=== PATIENT | male | born 1950 | race Caucasian/White ===

== ENCOUNTER → 2020-11-22 11:57 | Outpatient (BNVA) | payer MEDICARE, MEDICAID, SELFPAY | PROVIDERS: PCP Internal Medicine; Visit Provider Nurse Practitioner ==

== ENCOUNTER 2021-01-14 11:54 | Outpatient (REF) | payer MEDICARE, MEDICAID, SELFPAY ==
--- NOTE | ~2021-01-14 | XR_ITS ---
EXAMINATION: XR RIBS, BILATERAL CLINICAL INFORMATION: Trauma COMPARISON: Previous chest x-ray June [address] June 2017 TECHNIQUE: 3 views of the bilateral ribs and one view of the chest were obtained. FINDINGS: The cardiac and mediastinal contours are stable. The lungs are clear. There is no pleural effusion or pneumothorax. There are multiple old left posterior rib fractures. No acute rib fracture is seen. There are degenerative changes of the spine. XR/XR ribs BI min 4V w CXR1V IMPRESSION: No evidence for acute disease in the chest. Old left posterior rib fractures. No acute fracture seen.
--- NOTE | ~2021-01-14 | XR_ITS ---
EXAMINATION: XR FOREARM, RIGHT CLINICAL INFORMATION: Unspecified injury. Pain COMPARISON: None TECHNIQUE: AP and lateral views of the right forearm were obtained. FINDINGS: The bones and soft tissues are normal. No fracture. Imaged portions of the elbow and wrist are unremarkable. XR/XR forearm RT 2V IMPRESSION: Unremarkable right forearm.
== END 2021-01-14 11:55 | disposition home or self-care (01) ==
LOC: HO.XRAY 11:54
PROVIDERS: PCP Internal Medicine; Visit Provider Nurse Practitioner
DX: S59.919A Unspecified injury of unspecified forearm, initial encounter (principal); R07.81 Pleurodynia; R19.7 Diarrhea, unspecified; K21.9 Gastro-esophageal reflux disease without esophagitis; W10.2XXA Fall (on)(from) incline, initial encounter
CPT/HCPCS: 71111; 73090; Q3014

== ENCOUNTER → 2021-06-22 15:08 | Outpatient (BNVA) | payer MEDICARE, MEDICAID, SELFPAY | PROVIDERS: PCP Internal Medicine; Visit Provider Urology | DX: N40.0 Benign prostatic hyperplasia without lower urinary tract symptoms (principal); G20 Parkinson's disease; E78.00 Pure hypercholesterolemia, unspecified; Z88.8 Allergy status to other drugs, medicaments and biological substances; Z79.899 Other long term (current) drug therapy | CPT/HCPCS: 99212 ==

== ENCOUNTER → 2021-08-19 13:58 | Outpatient (BNVA) | payer MEDICARE, MEDICAID, SELFPAY | PROVIDERS: PCP Internal Medicine; Referring Provider Internal Medicine; Visit Provider Nurse Practitioner | DX: R19.7 Diarrhea, unspecified (principal); D36.9 Benign neoplasm, unspecified site; K21.9 Gastro-esophageal reflux disease without esophagitis; Z79.899 Other long term (current) drug therapy | CPT/HCPCS: Q3014 ==

== ENCOUNTER 2021-10-03 10:03 | Day surgery (SDC) | payer MEDICARE, MEDICAID, SELFPAY ==
--- NOTE | 2021-10-03 10:24 | MHC.SHP ---
Pre-Procedural Eval Section A Date of Service: 10/03/21 Section B Chief Complaint: benign neoplasm Details of Present Illness: hx of colon polyps Relevant Family History (Specify if Yes): No Relevant Social History: None Present Medications: see Short Stay Collaborative assessment Medical History: Significant History (BPH (benign prostatic hyperplasia) GERD (gastroesophageal reflux disease) Hypercholesterolemia Intractable hiccups Mental and behavioral problem Parkinsons disease Physical exam, annual Rib fractures Seizure disorder Tubular adenoma of colon) History of Previous Operations: Relevant previous surgery/procedure and date(s) (History of carpal tunnel release History of cholecystectomy Hx of colonoscopy) Allergies: Allergies Allergy/AdvReac Type Severity Reaction Status Date / Time ammonia [AMMONIA] Allergy Intermediate SHORTNESS Verified 08/19/21 14:20 OF BREATH sodium hypochlorite solution Allergy Intermediate SHORTNESS Verified 08/19/21 14:20 [Sodium Hypochlorite] OF BREATH ( BLEACH ) Review of Systems Sugical H&P ROS: Negative: Constitution, Cardiovascular, Respiratory, Neurological, Psychiatric, Hem-Onc, Allergic/Immunologic, Gastrointestinal, Genitourinary, Musculoskeletal, Integumentary, Endocrine and Eyes/Ears/Nose/Throat Exam Surgical H&P Exam: Normal: HEENT, Normal: Heart, Normal: Lungs, Normal: Extremities, Normal: Abdomen and Normal: Skin and Significant Findings: Neurological (tremor) Plan Diagnosis/Plan: Unchanged I have reviewed the history and physical and performed a pertinent physical examination on my patient. No changes have occurred unless specified.
[2021-10-03 10:46] VITALS: BMI 25.7
--- NOTE | 2021-10-03 10:57 | HO.ANESPROP2 ---
[facility] Active Problems Active Problems: All Active Problems (Updated 09/27/21 @ 14:28 by Silvia Aburto, RN) Physical exam, annual (Acute) Diarrhea (Acute) Multiple adenomatous polyps (Acute) Fall (on)(from) incline, initial encounter (Acute) Forearm injury (Acute) Rib pain on right side (Acute) GERD (gastroesophageal reflux disease) (Acute) Mental and behavioral problem (Acute) Hypercholesterolemia (Acute) Intractable hiccups (Acute) BPH (benign prostatic hyperplasia) (Acute) Seizure disorder (Acute) Parkinsons disease (Acute) Past Medical History Medical History (Updated 09/27/21 @ 14:28 by Silvia Aburto RN) BPH (benign prostatic hyperplasia) GERD (gastroesophageal reflux disease) Hypercholesterolemia Intractable hiccups Mental and behavioral problem Parkinsons disease Rib fractures Seizure disorder Tubular adenoma of colon Family History Family History Father Lung cancer Mother Brain cancer COPD (chronic obstructive pulmonary disease) Family history of problems with anesthesia: No Surgical History Surgical History (Updated 09/27/21 @ 14:28 by Silvia Aburto RN) History of carpal tunnel release History of cholecystectomy History of esophagogastroduodenoscopy (EGD) Hx of colonoscopy History of Problems with Anesthesia: No Social History Social History Alcohol intake: current Alcohol intake frequency: does not drink Advance Directives: No Advance Directives Information Provided: Yes Meds Allergies Allergy/AdvReac Type Severity Reaction Status Date / Time ammonia [AMMONIA] Allergy Intermediate SHORTNESS Verified 08/19/21 14:20 OF BREATH sodium hypochlorite solution Allergy Intermediate SHORTNESS Verified 08/19/21 14:20 [Sodium Hypochlorite] OF BREATH ( BLEACH ) Home Medications Medication Instructions Recorded Confirmed Last Taken Type buspirone 10 mg tablet 10 mg PO BID 07/22/20 09/27/21 Unknown History chlorpromazine 50 mg tablet mg PO 07/22/20 09/30/20 Unknown History clonazepam 0.5 mg tablet 0.5 mg PO BEDTIME 07/22/20 09/27/21 Unknown History gabapentin 300 mg capsule 300 mg PO 07/22/20 09/30/20 Unknown History loratadine 10 mg tablet (Claritin) 10 mg PO DAILY 07/22/20 09/27/21 Unknown History sucralfate 1 gram tablet 1 g PO .COMPLEX 07/22/20 09/27/21 Unknown History buspirone 10 mg tablet 10 mg PO ONCE PRN tab 09/30/20 09/27/21 Unknown History chlorpromazine 50 mg tablet 50 mg PO Q6H PRN tab 09/30/20 09/30/20 Unknown History carbidopa 25 mg-levodopa 100 mg 1.5 tab PO QID tab 11/25/20 09/27/21 Unknown History tablet clonazepam 1 mg tablet mg PO 01/14/21 Unknown History Exam Exam Date and Time: October 03, 2021 1057 Airway Mallampati Class: III TM Dist: >3cm Neck ROM: Full Heart: rrr Lungs: cta Assessment and Plan Assessment Anesthesia Assessment: Anesthesia Plan Discussed and Chart Reviewed Final Anesthetic Review Family History of Problems with Anesthesia: No History of Problems with Anesthesia: No NPO: Yes ASA Class: III Final Preanesthetic Review: No Changes in Pt Med Stat, Meds/Allgs Chart Reviewed and Consent Obtained/Reviewed Patient Risk: Intermediate Procedure Risk: Intermediate Anesthetic Plan Anesthetic Plan: MAC: Disposition: Standard PACU
[2021-10-03] MEDS: Lactated Ringers 1,000 ML 50 ML IVCONT (11:15)
--- NOTE | 2021-10-03 11:21 | PM.OP ---
Brief Operative Note Date of Service: 10/03/21 Pre-op diagnosis: hx of polyps Post-op diagnosis: same Procedure: see op note Surgeon: Nissa Farias MD Anesthesia: MAC Was an Restorative Rehab Aide used for this Procedure?: No Estimated blood loss (mL): 0 Condition: stable Disposition: PACU
--- NOTE | 2021-10-03 11:21 | W.PM.OPN ---
Operative Note Operative Note Date of Service: 10/03/21 Narrative: Operative Information Procedure Description: Colonoscopy COLONOSCOPY Instrument: Olympus variable stiffness pediatric scope 190L Colonoscopy Monitoring: Vital signs and clinical assessment, continuous EKG monitoring, Pulse oximetry, Carbon Dioxide monitoring and blood pressure monitoring were done throughout the procedure. Colon withdrawal time was 22 minutes. Procedure: The patient was placed in the left lateral decubitis position and pre-procedure medications were administered. After a digital rectal examination of the ano-rectum, the video colonoscope was inserted into the rectum and advanced through the colon to the cecum/TI. The colonoscope was slowly withdrawn in a retrograde panoramic fashion and the colon mucosa was carefully examined including a retroflexed view of the rectum. Findings and interventions are described below. Procedure Difficulty: easy Findings: Terminal Ileum-normal Cecum:normal Ascending Colon: x2 sessile polyps 9-10 mm removed with forceps on retroflexion, x 1 sessile polyp 8-10 mm removed with cold snare Transverse Colon -normal Descending Colon: 10-12 mm sessile polyp removed with cold snare and x 2 clips applied for hemostasis Sigmoid Colon: normal Rectum: Retroflexion with moderate sized internal hemorrhoids, grade II Anorectum - internal hemorrhoids seen on forward view Colon preparation: [place] Bowel Preparation Scale Right colon; 2 Transverse colon: 2 Left colon; 2 (0 = Unprepared colon segment with mucosa not seen due to solid stool that cannot be cleared. 1 = Portion of mucosa of the colon segment seen, but other areas of the colon segment not well seen due to staining, residual stool and/or opaque liquid. 2 = Minor amount of residual staining, small fragments of stool and/or opaque liquid, but mucosa of colon segment seen well. 3 = Entire mucosa of colon segment seen well with no residual staining, small fragments of stool or opaque liquid) Impression and Post Procedure Diagnosis: polyps internal hemorrhoids Plan: High fiber diet leaflet Avoid straining at stool, epsom salts and sitz bath, anusol supps or cream Repeat Colonoscopy in 3 years or earlier if clinically indicated Above findings were reviewed with the patient and relevant handouts were provided if indicated.
[2021-10-03 11:59] VITALS: BP 97/59; PULSE 51; RESP 16; TEMP 36.2; O2SAT 95
[2021-10-03 12:26] VITALS: BP 117/73; PULSE 59; RESP 17; TEMP 36.2; O2SAT 95
== END 2021-10-03 13:18 | disposition home or self-care (01) ==
PROVIDERS: Visit Provider Internal Medicine Gastroenterology
PROC: 0DJD8ZZ Inspection of Lower Intestinal Tract, Via Natural or Artificial Opening Endoscopic (ICD-10-PCS; CPT 45378; principal; 2021-10-03 11:00)
DX: Z12.11 Encounter for screening for malignant neoplasm of colon (principal); Z86.010 Personal history of colon polyps; D12.2 Benign neoplasm of ascending colon; D12.4 Benign neoplasm of descending colon; K64.1 Second degree hemorrhoids; K58.0 Irritable bowel syndrome with diarrhea; K21.9 Gastro-esophageal reflux disease without esophagitis; N40.0 Benign prostatic hyperplasia without lower urinary tract symptoms; G20 Parkinson's disease; G40.909 Epilepsy, unspecified, not intractable, without status epilepticus; F99 Mental disorder, not otherwise specified; F91.9 Conduct disorder, unspecified; Z79.899 Other long term (current) drug therapy; Z91.81 History of falling; Z90.49 Acquired absence of other specified parts of digestive tract
CPT/HCPCS: 45385; 45380; 88305

== ENCOUNTER 2021-10-20 10:05 | Outpatient (REF) | payer MEDICARE, MEDICAID, SELFPAY ==
[2021-10-20 10:40] LABS: MANUAL DIFF FLAG NO
[2021-10-20 11:24] LABS: Basophils Percent Auto 0.4 % (0-2); Eosinophils Absolute Auto 0.1 X10*3/uL (0.0-0.4); Eosinophils Percent Auto 1.3 % (0-4); Hematocrit 49.1 % (42.0-52.0); Hemoglobin 16.8 g/dl (14.0-18.0); Imm Gran Abs Auto 0.01 X10*3/uL (0.00-0.03); Imm Gran Pct Auto 0.2 % (0.0-0.4); Lymphocytes Absolute Auto 1.4 X10*3/uL (1.2-4.9); Lymphocytes Percent Auto 26.9 % (20-40); MANUAL DIFF FLAG SCAN; Mean Corpuscular HGB Conc 34.2 g/dl (31.0-36.0); Mean Corpuscular Hemoglobin 32.9 pg (27.0-33.0); Mean Corpuscular Volume 96.3 fL (80.0-98.0); Mean Platelet Volume 12.1 fL (9.4-12.4); Monocytes Absolute Auto 0.4 X10*3/uL (0.1-1.2); Monocytes Percent Auto 7.5 % (2-11); Neutrophils Absolute Auto 3.3 x10*3/uL (2.0-8.3); Neutrophils Percent Auto 63.7 % (45-73); PLT CLUMP 1; Platelet Count 109 X10*3/uL (160-400); Red Cell Distribution Width 13.2 % (11.0-16.0); SCAN SMEAR FLAG 1; White Blood Count 5.2 X10*3/uL (4.8-10.8)
[2021-10-20 11:25] LABS: Basophils Percent Auto 0.2 % (0-2); Eosinophils Absolute Auto 0.1 X10*3/uL (0.0-0.4); Eosinophils Percent Auto 1.9 % (0-4); Hematocrit 49.4 % (42.0-52.0); Hemoglobin 16.7 g/dl (14.0-18.0); Lymphocytes Absolute Auto 1.4 X10*3/uL (1.2-4.9); Mean Corpuscular HGB Conc 33.8 g/dl (31.0-36.0); Mean Corpuscular Hemoglobin 32.6 pg (27.0-33.0); Mean Corpuscular Volume 96.5 fL (80.0-98.0); Monocytes Absolute Auto 0.4 X10*3/uL (0.1-1.2); Monocytes Percent Auto 7.5 % (2-11); Neutrophils Absolute Auto 3.4 x10*3/uL (2.0-8.3); Neutrophils Percent Auto 63.2 % (45-73); Red Blood Count 5.12 X10*6/uL (4.60-5.80)
[2021-10-20 12:11] LABS: Platelet Count 105 X10*3/uL (160-400); White Blood Count 5.3 X10*3/uL (4.8-10.8)
[2021-10-20 12:12] LABS: SLIDE REVIEW VERIFIED
[2021-10-20 12:14] LABS: Alanine Aminotransferase 8 U/L (0-40); Alkaline Phosphatase 55 U/L (39-117); Anion Gap 11 (12-20); Aspartate Amino Transferase 16 U/L (5-37); Blood Urea Nitrogen 18 mg/dL (9-16); Carbon Dioxide 26 mmol/L (22-29); Chloride 109 mmol/L (96-108); Cholesterol 158 mg/dL; Estimated Glomerular Filt Rate > 60; Glucose Fasting 133 mg/dL (60-99); HDL Cholesterol 35 mg/dL; LDL Cholesterol Calculated 101 mg/dl; Potassium 4.8 mmol/L (3.3-5.1); Sodium 141 mmol/L (135-145); Total Protein 6.9 g/dL (6.5-8.0); Triglycerides 114 mg/dL
== END 2021-10-20 10:06 | disposition home or self-care (01) ==
LOC: HO.LAB 10:05
PROVIDERS: Nurse Practitioner; PCP Internal Medicine; Visit Provider Nurse Practitioner Family
DX: G20 Parkinson's disease (principal); D36.9 Benign neoplasm, unspecified site; E78.00 Pure hypercholesterolemia, unspecified
CPT/HCPCS: 36415; 80053; 80061; 85025

== ENCOUNTER → 2021-10-25 13:23 | Outpatient (BNVA) | payer MEDICARE, MEDICAID, SELFPAY | PROVIDERS: PCP Internal Medicine; Referring Provider Internal Medicine; Visit Provider Nurse Practitioner | DX: K21.9 Gastro-esophageal reflux disease without esophagitis (principal); R19.7 Diarrhea, unspecified; D36.9 Benign neoplasm, unspecified site | CPT/HCPCS: 99212 ==

== ENCOUNTER 2022-01-12 09:49 | Outpatient (REF) | payer MEDICARE, MEDICAID, SELFPAY ==
[2022-01-12 10:10] LABS: MANUAL DIFF FLAG NO
[2022-01-12 10:27] LABS: Eosinophils Absolute Auto 0.1 X10*3/uL (0.0-0.4); Imm Gran Abs Auto 0.01 X10*3/uL (0.00-0.03); Imm Gran Pct Auto 0.2 % (0.0-0.4); Mean Corpuscular Volume 96.7 fL (80.0-98.0); PLT CLUMP 1; SCAN SMEAR FLAG 1
[2022-01-12 10:28] LABS: Basophils Percent Auto 0.4 % (0-2); Eosinophils Percent Auto 1.4 % (0-4); Hematocrit 52.2 % (42.0-52.0); Hemoglobin 17.6 g/dl (14.0-18.0); Lymphocytes Absolute Auto 1.7 X10*3/uL (1.2-4.9); Lymphocytes Percent Auto 29.8 % (20-40); Mean Corpuscular HGB Conc 33.7 g/dl (31.0-36.0); Mean Corpuscular Hemoglobin 32.6 pg (27.0-33.0); Monocytes Absolute Auto 0.5 X10*3/uL (0.1-1.2); Monocytes Percent Auto 8.8 % (2-11); Neutrophils Absolute Auto 3.3 x10*3/uL (2.0-8.3); Neutrophils Percent Auto 59.4 % (45-73); Red Cell Distribution Width 13.1 % (11.0-16.0)
[2022-01-12 10:40] LABS: Platelet Count 122 X10*3/uL (160-400); White Blood Count 5.6 X10*3/uL (4.8-10.8)
[2022-01-12 10:43] LABS: Estimated Average Glucose 114 mg/dL; Hemoglobin A1c % 5.6 %
[2022-01-12 10:54] LABS: Alanine Aminotransferase 14 U/L (0-40); Albumin Level 4.2 g/dL (3.5-5.0); Alkaline Phosphatase 53 U/L (39-117); Anion Gap 14 (12-20); Aspartate Amino Transferase 14 U/L (5-37); Bilirubin Total 1.4 mg/dL (0.0-1.0); Blood Urea Nitrogen 14 mg/dL (9-16); Calcium 9.6 mg/dL (8.4-10.2); Carbon Dioxide 26 mmol/L (22-29); Chloride 106 mmol/L (96-108); Cholesterol 175 mg/dL; Estimated Glomerular Filt Rate > 60; Glucose Fasting 84 mg/dL (60-99); HDL Cholesterol 37 mg/dL; LDL Cholesterol Calculated 119 mg/dl; Potassium 4.5 mmol/L (3.3-5.1); Sodium 141 mmol/L (135-145); Total Protein 6.8 g/dL (6.5-8.0); Triglycerides 96 mg/dL
[2022-01-12 11:27] LABS: TSH reflex Free T4 2.31 uIU/mL (0.32-4.0)
[2022-01-12 11:45] LABS: Folate 13.1 ng/mL (> or = 4.0); Vitamin B12 399 pg/mL (200-900)
[2022-01-12 18:32] LABS: Prostate Specific Antigen Scr 2.79 ng/mL (<0.05-4.0)
[2022-01-17 15:57] LABS: Vitamin D 25-OH, D2 <4 ng/mL; Vitamin D 25-OH, D3 14 ng/mL; Vitamin D 25-OH, Total 14 ng/mL (30-100)
== END 2022-01-12 09:50 | disposition home or self-care (01) ==
LOC: HO.LAB 09:49
PROVIDERS: PCP Internal Medicine; Visit Provider Nurse Practitioner Acute Care
DX: Z12.5 Encounter for screening for malignant neoplasm of prostate (principal); E78.00 Pure hypercholesterolemia, unspecified
CPT/HCPCS: 36415; 80053; 80061; 82306; 82607; 82746; 83036; 84153; 84443; 85025

== ENCOUNTER 2022-05-08 15:00 | Outpatient (REF) | payer MEDICARE, MEDICAID, SELFPAY ==
[2022-05-08 15:21] LABS: Hemoglobin 16.6 g/dl (14.0-18.0); Imm Gran Abs Auto 0.01 X10*3/uL (0.00-0.03); Imm Gran Pct Auto 0.2 % (0.0-0.4); Mean Corpuscular HGB Conc 34.2 g/dl (31.0-36.0); PLT CLUMP 1; Red Cell Distribution Width 13.2 % (11.0-16.0); SCAN SMEAR FLAG 1
[2022-05-08 15:22] LABS: Basophils Percent Auto 0.6 % (0-2); Eosinophils Absolute Auto 0.1 X10*3/uL (0.0-0.4); Eosinophils Percent Auto 2.6 % (0-4); Hematocrit 48.5 % (42.0-52.0); Lymphocytes Absolute Auto 1.9 X10*3/uL (1.2-4.9); Lymphocytes Percent Auto 37.1 % (20-40); Mean Corpuscular Hemoglobin 32.5 pg (27.0-33.0); Mean Corpuscular Volume 94.9 fL (80.0-98.0); Mean Platelet Volume 11.6 fL (9.4-12.4); Monocytes Absolute Auto 0.4 X10*3/uL (0.1-1.2); Monocytes Percent Auto 8.4 % (2-11); Neutrophils Absolute Auto 2.5 x10*3/uL (2.0-8.3); Neutrophils Percent Auto 51.1 % (45-73); Red Blood Count 5.11 X10*6/uL (4.60-5.80)
[2022-05-08 15:26] LABS: MANUAL DIFF FLAG NO; Platelet Count 109 X10*3/uL (160-400)
[2022-05-08 15:48] LABS: Valproate 61.6 mcg/mL (50.0-100.0)
[2022-05-08 15:51] LABS: Alanine Aminotransferase 8 U/L (0-40); Albumin Level 4.4 g/dL (3.5-5.0); Alkaline Phosphatase 58 U/L (39-117); Anion Gap 9 (12-20); Aspartate Amino Transferase 17 U/L (5-37); Bilirubin Total 0.9 mg/dL (0.0-1.0); Blood Urea Nitrogen 18 mg/dL (9-16); Calcium 9.2 mg/dL (8.4-10.2); Carbon Dioxide 32 mmol/L (22-29); Chloride 103 mmol/L (96-108); Estimated Glomerular Filt Rate > 60; Glucose Random 118 mg/dL (60-115); Potassium 4.1 mmol/L (3.3-5.1); Sodium 140 mmol/L (135-145); Total Protein 6.8 g/dL (6.5-8.0)
[2022-05-08 16:05] LABS: Vitamin D 25-OH Total 35.8 ng/mL (>30)
== END 2022-05-08 15:01 | disposition home or self-care (01) ==
LOC: HO.LAB 15:00
PROVIDERS: PCP Internal Medicine; Visit Provider Internal Medicine
DX: G40.909 Epilepsy, unspecified, not intractable, without status epilepticus (principal); G20 Parkinson's disease; E55.9 Vitamin D deficiency, unspecified
CPT/HCPCS: 36415; 80053; 80164; 82306; 85025

== ENCOUNTER → 2022-05-16 14:35 | Outpatient (BNVA) | payer MEDICARE, MEDICAID, SELFPAY | PROVIDERS: PCP Internal Medicine; Referring Provider Internal Medicine; Visit Provider Nurse Practitioner | DX: K21.9 Gastro-esophageal reflux disease without esophagitis (principal); R19.7 Diarrhea, unspecified; K22.4 Dyskinesia of esophagus | CPT/HCPCS: 99212 ==

== ENCOUNTER → 2022-11-15 14:25 | Outpatient (BNVA) | payer MEDICARE, MEDICAID, SELFPAY | PROVIDERS: PCP Internal Medicine; Visit Provider Nurse Practitioner | DX: R19.7 Diarrhea, unspecified (principal); K21.9 Gastro-esophageal reflux disease without esophagitis; K22.4 Dyskinesia of esophagus; D36.9 Benign neoplasm, unspecified site | CPT/HCPCS: 99212 ==

== ENCOUNTER 2023-01-25 10:18 | Outpatient (REF) | payer MEDICARE, MEDICAID, SELFPAY ==
[2023-01-25 11:36] LABS: Valproate 50.6 mcg/mL (50.0-100.0)
== END 2023-01-25 10:19 | disposition home or self-care (01) ==
LOC: HO.LAB 10:18
PROVIDERS: PCP Internal Medicine; Visit Provider Psychiatry & Neurology Neurology
DX: G40.011 Localization-related (focal) (partial) idiopathic epilepsy and epileptic syndromes with seizures of localized onset, intractable, with status epilepticus (principal)
CPT/HCPCS: 36415; 80164

== ENCOUNTER 2023-01-30 11:00 | Outpatient (RCR) | payer MEDICARE, MEDICAID, SELFPAY ==
--- NOTE | 2023-01-10 15:04 | MHC.PT.EP ---
[facility] [place] Office [place] Office [place] Office [address] Katey Sarah [address] [phone] F: [phone] F: [phone] F: [phone] F: [phone] Physical Therapy Plan of Care Date of Evaluation: Date of Surgery: NA Diagnosis: GAIT INSTABILITY Assessment: Pt IS 72 YO M REFERRED TO PT FROM DR TEJADA TO WORK ON BALANCE AND STRENGTHENING WITH GT AND ADLS. PRESENTS TO PT WITH DECREASED BALANCE AND DECREASED LE STRENGTH. Pt WITH PARKINSONS DISEASE WITH RESTING TREMOR. HAD UTI ABOUT 4 MONTHS AGO WITH STAY AT [facility]. SINCE THEN HAS BEEN USING [facility]. Pt ABLE TO WALK SHORT DISTANCES WITHOUT [facility] AT THIS TIME. SHOULD BENEFIT FROM PT TO HELP WITH OVERALL STRENGTH, MOBILITY, GT, BALANCE. Frequency and Duration: The patient will be seen 2X/WK X 8 WKS Short Term Goals: 1. HEP TO BE DONE WITH ASSIST 2. GT WITH LRAD (MAY BE ABLE TO WEAN FROM [facility] TO [facility] OR NO AD) Intermediate Goals: 1. IMPROVED 30 SEC SIT<>STAND TEST 2. IMPROVED TUG TIME Treatment Plan: Modalities to reduce pain, spasms and effusion. Manual therapy to restore motion and function. Therapeutic exercise to improve strength and flexibility. Neuromuscular re-education for posture and balance. Therapeutic activities to return to functional activities of daily living. Electronically signed by: GINA KAY PT Please sign and return to therapist. Thank you for your referral.
--- NOTE | 2023-03-29 11:38 | MHC.PT.OD ---
[facility] [place] Office [place] Office [place] Office [address] Katey Sarah [address] [phone] F: [phone] F: [phone] F: [phone] F: [phone] Physical Therapy Daily Note Diagnosis: GAIT INSTABILITY Date of Surgery: NA Date of Evaluation: 01/10/23 Date of Treatment: 01/30/23 Treatments to Date: Cancellations to Date: No Shows to Date: Authorized Visits: 4 Insurance End Date: Precautions/ Contraindications:SEISURE DISORDER PARKINSONS FREEMAN Subjective: Its the same. (Referring to back pain) Presents to office with worker mental health product support specialist Sruthi. Sruthi states patient continues to complain of back pain- not agreeable to seeking medical intervention at this time. Pain Score and Location: 0 Objective Flowsheet: Tests & Measures Therapist inquired ability to look at patient's back- with hesitation pt agreeable (-) bruising. Pt noted to state he does not want xrays and does not want breathing machine. Pt noted to perseverate on this throughout the session. Exercises TRIAL SEATED PathSourceFIT BIKE SEAT 10, LEVEL 1 FOR SLOW REVS able to complete five minutes. SAQ, isometric hip adduction with ball squeeze, SLR into flexion with max tactiles cues for support, seated ROWS WITH YTB, sit<>stand and stand<>sit with cues for support. Pt not agreeable to performing standing kitchen exerciss reports hx fear of back pain. Pt not agreeable to trialing much new things due to fear of having back pain. Reviewed log roll avoiding shear forces to bacK. Reeviewed mechanics with caregiver Sruthi and recommendation to encourage to seek medical care. Sruthi states sometimes has better outcomes with his brother encouraging so she was going to make note and mention concern for back with him. BALANCE ACTIVITIES Education to avoid shear forces, bending twisting movements due to concern for possible fracture s/p fall out of bed. Patient continue to be hesitant not willing to seek medical care despite caseworkers expressing knowledge of his fall OOB. Modalities Assessment: 01/30/23 requires aide of therapist to hold cup while drinking due to tremor. Mixed outcomes with PT noted due to patient lack of willingess to try new exercises, reports ongoing low back pain since fall OOB. PT recommending patient have medical follow up to rule out concern for undetected fracture. Careworker reports no compliance with exercises issued to date since injury of falling out of bed. No increased sx with activity, however no relief reported either. C/O low grade back pain that is constant. No bruising noted on 01/26/23. Pt presents with noted tremor L>R but demonstrates good safety insight for hand placement with use of walker. Pt reports hx back pain since falling OOB per guinea pig breeder was last week. Yarn Rewinder BELINDA appeared with today who was educated by therapist recommendation to monitor and encourage medical staff to follow up with patient for fall OOB/need for xray. Pt does not have any bruising along his back but declines most activities presented to him in the office today c/o back pain L>R. He was educated/encouraged to keep moving and walk often at home. Log roll technique was educated with avoidance of twisting/bending. PT Plan: Monitor active participation- if no change in patient status he may be more appropriate for 1x/weekly STRENGTHENING, BAL WORK, Pt ED. TO BE DONE ONLY WITH CAREGIVER PRESENT Short Term Goals: 1. HEP TO BE DONE WITH ASSIST 2. GT WITH LRAD (MAY BE ABLE TO WEAN FROM [facility] TO [facility] OR NO AD) [facility]ci Goals: 1. IMPROVED 30 SEC SIT<>STAND TEST 2. IMPROVED TUG TIME Electronically signed by: Sue Zamorano, PT, DPT
== END 2023-03-29 11:39 | disposition home or self-care (01) ==
LOC: HO.PTWFD 11:00
PROVIDERS: PCP Internal Medicine; Visit Provider Internal Medicine
DX: R26.89 Other abnormalities of gait and mobility (principal); R29.6 Repeated falls
CPT/HCPCS: 97110; 97162; 97535

== ENCOUNTER 2023-02-16 10:07 | Outpatient (REF) | payer MEDICARE, MEDICAID, SELFPAY ==
--- NOTE | ~2023-02-16 | XR_ITS ---
EXAMINATION: XR LUMBOSACRAL SPINE CLINICAL INFORMATION: Low back pain COMPARISON: None available. TECHNIQUE: Three views of the lumbosacral spine. FINDINGS: There is curvature of the lower lumbar spine to the left. Bone alignment is otherwise normal. No fracture or dislocation. Mild disc space narrowing at L5-S1. There is lower lumbar spine facet arthritis. XR/XR lumbar spine 2-3V IMPRESSION: Mild curvature of the lower lumbar spine to the left and degenerative changes.
[2023-02-16 10:21] LABS: MANUAL DIFF FLAG NO
[2023-02-16 11:14] LABS: Appearance Urine Cloudy; Color Urine Yellow; Glucose Urine UA Negative (Negative); Leukocyte Esterase Urine Moderate (2+) (Negative); Nitrite Urine Positive (Negative); PH 7.5 (5.0-9.0); Specific Gravity - Urine 1.015 (1.005-1.025); UMIC TRIGGER UA YES; Urine Blood Negative (Negative); Urine Ketones Trace mg/dL (Negative); Urine Protein Trace mg/dL (Neg-Trace)
[2023-02-16 11:15] LABS: Basophils Percent Auto 0.4 % (0-2); Eosinophils Absolute Auto 0.1 X10*3/uL (0.0-0.4); Hematocrit 50.2 % (42.0-52.0); Hemoglobin 16.7 g/dl (14.0-18.0); Imm Gran Abs Auto 0.01 X10*3/uL (0.00-0.03); Imm Gran Pct Auto 0.2 % (0.0-0.4); Lymphocytes Absolute Auto 1.7 X10*3/uL (1.2-4.9); Lymphocytes Percent Auto 32.1 % (20-40); Mean Corpuscular HGB Conc 33.3 g/dl (31.0-36.0); Mean Corpuscular Hemoglobin 32.3 pg (27.0-33.0); Mean Corpuscular Volume 97.1 fL (80.0-98.0); Mean Platelet Volume 11.4 fL (9.4-12.4); Monocytes Absolute Auto 0.4 X10*3/uL (0.1-1.2); Monocytes Percent Auto 7.9 % (2-11); Neutrophils Percent Auto 58.4 % (45-73); Platelet Count 114 X10*3/uL (160-400); Red Blood Count 5.17 X10*6/uL (4.60-5.80); Red Cell Distribution Width 13.5 % (11.0-16.0); White Blood Count 5.2 X10*3/uL (4.8-10.8)
[2023-02-16 11:16] LABS: Bacteria Urine 4+ (None Seen); Hyaline Casts Urine 0-2 /LPF (0-2); Squamous Epithelial Cell Urine 0-2 /HPF (0-2); WBC Urine >50 /HPF (0-5)
[2023-02-16 11:25] LABS: Estimated Average Glucose 111 mg/dL; Hemoglobin A1c % 5.5 %
[2023-02-16 12:00] LABS: Anion Gap 14 (12-20)
[2023-02-16 12:04] LABS: Alanine Aminotransferase 36 U/L (0-40); Albumin Level 4.1 g/dL (3.5-5.0); Alkaline Phosphatase 49 U/L (39-117); Aspartate Amino Transferase 19 U/L (5-37); Bilirubin Total 1.4 mg/dL (0.0-1.0); Blood Urea Nitrogen 16 mg/dL (9-16); Calcium 9.3 mg/dL (8.4-10.2); Carbon Dioxide 27 mmol/L (22-29); Chloride 106 mmol/L (96-108); Cholesterol 175 mg/dL; Estimated Glomerular Filt Rate > 60; Glucose Random 77 mg/dL (60-115); HDL Cholesterol 41 mg/dL; LDL Cholesterol Calculated 115 mg/dl; Potassium 4.4 mmol/L (3.3-5.1); Sodium 143 mmol/L (135-145); Total Protein 6.5 g/dL (6.5-8.0); Triglycerides 95 mg/dL
[2023-02-16 12:40] LABS: Folate 14.3 ng/mL (> or = 4.0); Free T4 (Free Thyroxine) 0.99 ng/dL (0.71-1.85); Thyroid Stimulating Hormone 1.65 uIU/mL (0.32-4.0); Vitamin B12 641 pg/mL (200-900)
== END 2023-02-16 10:08 | disposition home or self-care (01) ==
LOC: HO.XRAY 10:07
PROVIDERS: PCP Internal Medicine; Visit Provider Internal Medicine
DX: E78.00 Pure hypercholesterolemia, unspecified (principal); M54.50 Low back pain, unspecified; R73.9 Hyperglycemia, unspecified; Z12.5 Encounter for screening for malignant neoplasm of prostate
CPT/HCPCS: 36415; 72100; 80053; 80061; 81001; 82607; 82746; 83036; 84153; 84439; 84443; 85025

== ENCOUNTER → 2023-02-27 13:05 | Outpatient (BNVA) | payer MEDICARE, MEDICAID, SELFPAY | PROVIDERS: PCP Internal Medicine; Visit Provider Urology | DX: N40.0 Benign prostatic hyperplasia without lower urinary tract symptoms (principal); Z79.899 Other long term (current) drug therapy | CPT/HCPCS: 51798; 99212 ==

== ENCOUNTER 2023-06-19 11:23 | Outpatient (AMB) | payer MEDICARE, MEDICAID, SELFPAY ==
[2023-06-19 11:38] VITALS: BP 102/62; PULSE 66; BMI 22.2
--- NOTE | 2023-06-19 11:38 | A.OFFPC_ITS ---
Vital Signs 06/19/23 11:38 Height 5 ft 8 in Weight 146 lb BMI 22.2 BP 102/62 Blood Pressure Location Lt brachial Position Sitting Pulse 66 Pulse Source Pulse Oximeter Oxygen Delivery Method Room Air Oxygen Flow Rate 98 Intake Visit Reasons: LBP, cholesterol Intake Note: Patient is here to follow up on LBP, cholesterol. Head Baker Required: No Pensionholder Information Clerk: Present Accompanied by: staff Allergies ammonia [AMMONIA] Allergy (Intermediate, Verified 06/19/23 12:00) SHORTNESS OF BREATH sodium hypochlorite solution [Sodium Hypochlorite] Allergy (Intermediate, Verified 06/19/23 12:00) SHORTNESS OF BREATH ( BLEACH ) Medication List - Last Reconciled 06/19/23 by JR Allen acetaminophen ER (Tylenol 8 Hour) 650 mg PO Q6H bisacodyl 10 mg [place] DAILY PRN carbidopa-levodopa 25-100 mg 1 tab PO QID chlorpromazine 50 mg PO Q6-8H clonazepam 0.5 mg PO DAILY divalproex (Depakote) 250 mg PO TID gabapentin 300 mg PO BID loperamide (Imodium A-D) 2 mg PO BID PRN omeprazole 40 mg PO BID polyethylene glycol 3350 (Miralax) 17 grams PO DAILY sucralfate 1 g PO BID tamsulosin 0.4 mg PO DAILY 90 days Tobacco use date assessed: 06/19/23 Fall risk assessment: 1 Fall in past year Last assessed Fall Risk: 06/19/23 Dental Screening Dental Screen Date: 06/19/23 Did you have a dental visit in the last 12 months?: Yes Did you have a dental problem in the last 6 months where you did not have access to dental care?: No Was dental information given to patient?: Patient has dentist HPI HPI Comments History of Present Illness Details 72-year-old male with a history of mental and behavioral problem, s eizure disorder, Parkinson's disease BPH hypercholesterolemia GERD and esophageal dysmotility. Patient of last seen in February presents today for follow-up visit. Patient presents today with test case developer. Review of the notes patient was seen urologist, recommended to Continue with tamsulosin and follow up in 1 year. Patient's test case developer states that he was having episodes of incontinence and was wearing diapers for this, however they have seemed to subside. Denies any urinary symptoms. Manager Business Intelligence advised to have patient follow up if he develops any new or worsening incontinence, dysuria, frequency or hesitancy. [facility] Medical History BPH (benign prostatic hyperplasia) COPD (chronic obstructive pulmonary disease) SARA (generalized anxiety disorder) GERD (gastroesophageal reflux disease) Hypercholesterolemia Intractable hiccups Mental and behavioral problem Parkinsons disease Rib fractures Right carpal tunnel syndrome Seizure disorder Tubular adenoma of colon Surgical History History of carpal tunnel release History of cholecystectomy Hx of colonoscopy Hx of hernia repair Hx of tonsillectomy Family History Father Lung cancer Mother Brain cancer COPD (chronic obstructive pulmonary disease) Social History Housing: Assisted Living Facility Alcohol intake: current Alcohol intake frequency: does not drink Patient Tobacco Use Status: Never used Tobacco e-Cigarette/Vaping Use: Never Used Second Hand Smoke Exposure: No service: No Current occupational status: retired Cognitive needs: Yes (walker) Hearing needs: Yes (hearing aids in both ears) Vision needs: Yes (glasses) Questionnaire Thrive Questionnaire Date Thrive assessed: 11/01/22 SARA-7 AMB Questionnaire SARA-7 Date SARA - 7 assessed: 11/01/22 Source: Developed by Drs. Jeff Ngo, Jasmina Carlos, Kevin Pratt and colleagues, with an educational roge from [employer]. Review of Systems Const Denies chills, Denies fatigue, Denies fever(s) and Denies poor appetite Eyes Denies no additional complaints ENT Reports Normal hearing present Card Denies chest pain, Denies syncope, Denies rapid heart rate and Denies dyspnea Resp Denies cough and Denies dyspnea GI Denies change in stool character, Denies constipation, Denies diarrhea, Denies nausea and Denies vomiting Denies dysuria, Denies urinary frequency and Denies urinary urgency Neuro Reports Normal hearing present, Denies confusion and Denies syncope Psych Denies confusion Endo Denies fatigue Physical exam (Primary Care) Vital Signs: Last Vital Signs Pulse 66 06/19/23 11:38 BP 102/62 06/19/23 11:38 Oxygen Delivery Method Room Air 06/19/23 11:38 Oxygen Flow Rate 98 06/19/23 11:38 BMI result Body Mass Index 22.2 Tobacco/Smoking Status: Tobacco use Status Tobacco use date assessed 06/19/23 06/19/23 11:43 Patient Tobacco Use Status Never used Tobacco 06/19/23 11:43 e-Cigarette/Vaping Use Never Used 06/19/23 11:43 Thrive Assessment: Date of Thrive Assessment Date Thrive assessed 11/01/22 06/19/23 11:43 Const General: No confusion Orientation/consciousness: No confusion HENMT Head: Yes normocephalic and Yes atraumatic Eyes Conjunctivae: conjunctivae normal Chest Chest palpation & inspection: normal inspection of the chest Resp Effort & Inspection: normal respiratory effort Auscultation: clear to auscultation bilaterally, no crackles, no rhonchi and no wheezes Cardio Rate: regular rate Rhythm: regular rhythm Heart sounds: S1 normal heart sound present and S2 normal heart sound present GI Inspection: Yes normal to inspection Neuro General: No confusion Cranial nerves: Yes Normal hearing present Extrem General: No edema Assessment and Plan Assessment & Plan (1) BPH (benign prostatic hyperplasia): Code(s): N40.0 - Benign prostatic hyperplasia without lower urinary tract symptoms Plan: Continue on tamsulosin. Continue to follow urology. (2) Seizure disorder: Code(s): G40.909 - Epilepsy, unspecified, not intractable, without status epilepticus Plan: Continue on Depakote. Cotninue to follow with neurology. (3) Parkinsons disease: Code(s): G20 - Parkinson's disease Plan: Continue on carbidopa-levodopa Continue to follow with Neurology. (4) Hypercholesterolemia: Code(s): E78.00 - Pure hypercholesterolemia, unspecified Plan: Fasting lipid panel ordered. Plan Follow-up in 3 months. Orders: Orders Comprehensive [place]. Panel Fast Today E78.00 - Pure hypercholesterolemia, unspecified Lipid Panel Today Z13.220 - Encounter for screening for lipoid disorders TSH reflex Free T4 Today Z13.29 - Encounter for screening for other suspected endocrine disorder Coding Level of Care Code Est Pt Level 4 (95118) Diagnoses BPH (benign prostatic hyperplasia) N40.0 Seizure disorder G40.909 Parkinsons disease G20 Hypercholesterolemia E78.00
== END 2023-06-19 12:12 | disposition home or self-care (01) ==
PROVIDERS: PCP Internal Medicine; Visit Provider Nurse Practitioner Family
DX: N40.0 Benign prostatic hyperplasia without lower urinary tract symptoms (principal); G40.909 Epilepsy, unspecified, not intractable, without status epilepticus; G20 Parkinson's disease; E78.00 Pure hypercholesterolemia, unspecified
CPT/HCPCS: 99214

== ENCOUNTER 2023-07-19 09:52 | Outpatient (REF) | payer MEDICARE, MEDICAID, SELFPAY ==
[2023-07-19 11:42] LABS: Alanine Aminotransferase 7 U/L (0-40); Albumin Level 4.2 g/dL (3.5-5.0); Alkaline Phosphatase 47 U/L (39-117); Anion Gap 12 (12-20); Aspartate Amino Transferase 13 U/L (5-37); Bilirubin Total 1.3 mg/dL (0.0-1.0); Blood Urea Nitrogen 19 mg/dL (9-16); Calcium 9.4 mg/dL (8.4-10.2); Carbon Dioxide 27 mmol/L (22-29); Chloride 107 mmol/L (96-108); Cholesterol 163 mg/dL (<200); Estimated Glomerular Filt Rate > 60; Glucose Fasting 80 mg/dL (60-99); HDL Cholesterol 49 mg/dL (>40); LDL Cholesterol Calculated 100 mg/dL (<100); Potassium 4.6 mmol/L (3.3-5.1); Sodium 141 mmol/L (135-145); TSH reflex Free T4 1.32 uIU/mL (0.32-4.0); Total Protein 6.8 g/dL (6.5-8.0); Triglycerides 72 mg/dL (<150)
== END 2023-07-19 09:53 | disposition home or self-care (01) ==
LOC: HO.LAB 09:52
PROVIDERS: PCP Internal Medicine; Visit Provider Nurse Practitioner Family
DX: Z13.220 Encounter for screening for lipoid disorders (principal); Z13.29 Encounter for screening for other suspected endocrine disorder; E78.00 Pure hypercholesterolemia, unspecified
CPT/HCPCS: 36415; 80053; 80061; 84443

== ENCOUNTER 2023-09-21 13:13 | Outpatient (AMB) | payer MEDICARE, MEDICAID, SELFPAY ==
[2023-09-21 13:15] VITALS: BP 116/80; PULSE 64; O2SAT 99; BMI 21.6
--- NOTE | 2023-09-21 13:15 | MHC.PC.OV ---
Vital Signs 09/21/23 13:15 Height 5 ft 8 in Weight 142 lb 0.6 oz BMI 21.6 BP 116/80 Blood Pressure Location Lt brachial Position Sitting Pulse 64 Pulse Source Pulse Oximeter Pulse Oximetry (%) 99 Oxygen Delivery Method Room Air Intake Visit Reasons: LBP, Cholesterol Allergies ammonia [AMMONIA] Allergy (Intermediate, Verified 09/21/23 13:19) SHORTNESS OF BREATH sodium hypochlorite solution [Sodium Hypochlorite] Allergy (Intermediate, Verified 09/21/23 13:19) SHORTNESS OF BREATH ( BLEACH ) Medication List - Last Reconciled 09/21/23 by Yaw Mcdaniel MD acetaminophen ER (Tylenol 8 Hour) 650 mg PO Q6H bisacodyl 10 mg [place] DAILY PRN carbidopa-levodopa 25-100 mg 1 tab PO QID chlorpromazine 50 mg PO Q6-8H clonazepam 0.5 mg PO DAILY divalproex (Depakote) 250 mg PO TID gabapentin 300 mg PO BID loperamide (Imodium A-D) 2 mg PO BID PRN omeprazole 40 mg PO BID polyethylene glycol 3350 (Miralax) 17 grams PO DAILY sucralfate 1 g PO BID tamsulosin 0.4 mg PO DAILY 90 days Tobacco use date assessed: 09/21/23 Fall risk assessment: No Falls in past year Last assessed Fall Risk: 09/21/23 HPI LBP, Cholesterol HPI Details 73-year-old male with mental and behavioral problem seizure disorder Parkinson's disease hypercholesterolemia last seen in May 2023. Review of the notes in July 2023 had a urinalysis done showing UTI. Ultrasound was requested but this was not done.. Discussed about the need for ultrasound. Patient also complains of pain in the groin area. Patient does have incontinence. [facility] Medical History BPH (benign prostatic hyperplasia) COPD (chronic obstructive pulmonary disease) SARA (generalized anxiety disorder) GERD (gastroesophageal reflux disease) Hypercholesterolemia Intractable hiccups Mental and behavioral problem Parkinsons disease Rib fractures Right carpal tunnel syndrome Seizure disorder Tubular adenoma of colon Surgical History History of carpal tunnel release History of cholecystectomy Hx of colonoscopy Hx of hernia repair Hx of tonsillectomy Family History Father Lung cancer Mother Brain cancer COPD (chronic obstructive pulmonary disease) Social History Housing: Assisted Living Facility Alcohol intake: current Alcohol intake frequency: does not drink Patient Tobacco Use Status: Never used Tobacco e-Cigarette/Vaping Use: Never Used Second Hand Smoke Exposure: No service: No Current occupational status: retired Cognitive needs: Yes (walker) Hearing needs: Yes (hearing aids in both ears) Vision needs: Yes (glasses) Questionnaire Thrive Questionnaire Date Thrive assessed: 11/01/22 AUDIT C Alcohol Use Questionnaire (AUDIT-C) 1. How often do you have a drink containing alcohol?: Never Total Score: 0 Score Reviewed/Action Taken: No SARA-7 AMB Questionnaire SARA-7 Date SARA - 7 assessed: 11/01/22 Source: Developed by Drs. Jeff Ngo, Jasmina Carlos, Kevin Pratt and colleagues, with an educational roge from [employer]. Physical exam (Primary Care) Vital Signs: Last Vital Signs Pulse 64 09/21/23 13:15 BP 116/80 09/21/23 13:15 Pulse Ox 99 09/21/23 13:15 Oxygen Delivery Method Room Air 09/21/23 13:15 BMI result Body Mass Index 21.6 Tobacco/Smoking Status: Tobacco use Status Tobacco use date assessed 09/21/23 09/21/23 13:21 Patient Tobacco Use Status Never used Tobacco 09/21/23 13:21 e-Cigarette/Vaping Use Never Used 09/21/23 13:21 Thrive Assessment: Date of Thrive Assessment Date Thrive assessed 11/01/22 09/21/23 13:21 Const General: alert; No acute distress Eyes Conjunctivae: conjunctivae normal Resp Auscultation: clear to auscultation bilaterally Cardio Rate: regular rate Rhythm: regular rhythm GI Inspection: Yes normal to inspection Skin Other: Erythematous Rash on the scrotal skin as well as on the upper thigh and groin area. Did not see the rash in penile glans Extrem General: Yes normal to inspection and No edema Assessment and Plan Assessment & Plan (1) UTI (urinary tract infection): Code(s): N39.0 - Urinary tract infection, site not specified Plan: Patient was treated but explained to the social work supervisor on the need to work this up. (2) GERD (gastroesophageal reflux disease): Comment: Erosive gastritis with Schatzki's ring Code(s): K21.9 - Gastro-esophageal reflux disease without esophagitis Plan: Avoid the foods that causes that usually spicy foods, tomato products, juices, coffee, soda and foods that your sensitive to. After eating do not lie down, allow 3-4 hours before in lie down. And keep the head of bed above 30 degrees to avoid the acid from going up. On Carafate and omeprazole (3) Hypercholesterolemia: Code(s): E78.00 - Pure hypercholesterolemia, unspecified Plan: Avoid fried foods, chicken skin, eggs, butter margarine, pastries and meat. Be it pork or beef they have a lot of cholesterol LDL goal of less than 130 and triglyceride of less than 150 advised to get the blood work (4) Seizure disorder: Code(s): G40.909 - Epilepsy, unspecified, not intractable, without status epilepticus Plan: Continue with Depakote and will continue monitoring on the levels (5) Parkinsons disease: Code(s): G20 - Parkinson's disease Plan: Presently on carbidopa levodopa (6) Mental and behavioral problem: Code(s): F48.9 - Nonpsychotic mental disorder, unspecified; F69 - Unspecified disorder of adult personality and behavior Plan: Continue follow-up with psychiatry (7) Tinea cruris: Code(s): B35.6 - Tinea cruris Plan: Advised to put the cream twice a day for 1 month. Antifungal powder also requested to be placed after the rash has cleared up. (8) Urinary incontinence: Code(s): R32 - Unspecified urinary incontinence Plan: advised more frequent changes of the pull ups to avoid fungal infection Orders: Orders Influenza [id number] Immunization Today Z23 - Encounter for immunization US bladder Today N39.0 - Urinary tract infection, site not specified US renal BI Today N39.0 - Urinary tract infection, site not specified Medications: New flu vacc [id number] 6mos up(PF) 0.5 mL IM ONCE 0.5 mL 0RF Z23 - Encounter for immunization clotrimazole 1% 1 appl topical BID 4 weeks 45 grams 0RF B35.6 - Tinea cruris miconazole nitrate 2% (Zeasorb AF) 1 appl topical BID 85 grams 0RF B35.6 - Tinea cruris miconazole nitrate 2% (Zeasorb AF) 1 appl topical BID 85 grams 0RF B35.6 - Tinea cruris Coding Level of Care Code Est Pt Level 4 (99352) Diagnoses UTI (urinary tract infection) N39.0 GERD (gastroesophageal reflux disease) K21.9 Hypercholesterolemia E78.00 Seizure disorder G40.909 Parkinsons disease G20 Mental and behavioral problem F48.9; F69 Tinea cruris B35.6 Urinary incontinence R32
== END 2023-09-21 14:03 | disposition home or self-care (01) ==
PROVIDERS: PCP Internal Medicine; Visit Provider Internal Medicine
DX: N39.0 Urinary tract infection, site not specified (principal); G40.909 Epilepsy, unspecified, not intractable, without status epilepticus; G20.B2 Parkinson's disease with dyskinesia, with fluctuations; Z23 Encounter for immunization; K21.9 Gastro-esophageal reflux disease without esophagitis; E78.00 Pure hypercholesterolemia, unspecified; F48.9 Nonpsychotic mental disorder, unspecified; F69 Unspecified disorder of adult personality and behavior; B35.6 Tinea cruris; R32 Unspecified urinary incontinence
CPT/HCPCS: 90471; 90686; 99214

== ENCOUNTER 2023-10-02 12:55 | Outpatient (REF) | payer MEDICARE, MEDICAID, SELFPAY ==
--- NOTE | ~2023-10-02 | US_ITS ---
EXAMINATION: US RETROPERITONEAL COMPLETE (RENAL) CLINICAL INFORMATION: Urinary tract infection, side not specified. COMPARISON: Renal ultrasound 11/22/2015. X-ray abdomen KUB 08/26/2015. TECHNIQUE: Real-time imaging of the kidneys and bladder. FINDINGS: RIGHT KIDNEY: 12.3 x 4.0 x 6.5 cm (SAG x AP x TRV). The kidney is normal in size, contour, and echogenicity. Renal cortical thickness is normal. No renal calculi or hydronephrosis. 1.0 x 0.7 x 1.3 cm mid and 2.9 x 2.0 x 3.4 cm upper pole simple parapelvic cysts are seen. No imaging follow-up is recommended. LEFT KIDNEY: 12.2 x 4.0 x 4.7 cm (SAG x AP x TRV). The kidney is normal in size, contour, and echogenicity. Renal cortical thickness is normal. No calculi or focal parenchymal lesions. No hydronephrosis. BLADDER: Well distended and normal. Right ureteral jet is demonstrated; left is not. Prevoid bladder volume is 401 mL. Postvoid bladder volume is 98.1 mL. ADDITIONAL FINDINGS: The prostate measures 27.1 mL in volume. It has several cystic areas, the largest measuring 0.8 x 0.8 x 1.0 cm. US/US retroperitoneal comp IMPRESSION: 1. No significant abnormality of the right kidney. 2. Normal left kidney. 3. Large post void residual. 4. Mildly enlarged prostate with several cystic areas which are of uncertain clinical significance.
== END 2023-10-02 12:56 | disposition home or self-care (01) ==
LOC: HO.HMGCX 12:55
PROVIDERS: PCP Internal Medicine; Visit Provider Internal Medicine
DX: N39.0 Urinary tract infection, site not specified (principal)
CPT/HCPCS: 76770

== ENCOUNTER 2024-01-25 13:32 | Outpatient (AMB) | payer MEDICARE, MEDICAID, SELFPAY ==
[2024-01-25 13:33] VITALS: BP 102/64; PULSE 60; O2SAT 98; BMI 21.7
--- NOTE | 2024-01-25 13:33 | MHC.PC.OV ---
Vital Signs 01/25/24 13:33 Height 5 ft 8 in Weight 143 lb BMI 21.7 BP 102/64 Blood Pressure Location Lt brachial Position Sitting Pulse 60 Pulse Source Pulse Oximeter Pulse Oximetry (%) 98 Oxygen Delivery Method Room Air Intake Visit Reasons: abdominal pain, dark urine, ED follow up 01/14 Intake Note: Patient is here to follow-up after a visit the emergency department at [facility] on 01/15/2024 due to a UTI Property Clerk Required: No Allergies ammonia [AMMONIA] Allergy (Intermediate, Verified 01/25/24 13:34) SHORTNESS OF BREATH sodium hypochlorite solution [Sodium Hypochlorite] Allergy (Intermediate, Verified 01/25/24 13:34) SHORTNESS OF BREATH ( BLEACH ) Medication List - Last Reconciled 01/25/24 by Yaw Mcdaniel MD acetaminophen ER (Tylenol 8 Hour) 650 mg PO Q6H bisacodyl 10 mg [place] DAILY PRN carbidopa-levodopa 25-100 mg 1 tab PO QID chlorpromazine 50 mg PO Q6-8H ciprofloxacin HCl (Cipro) 500 mg PO BID clonazepam 0.5 mg PO DAILY clotrimazole 1% 1 appl topical BID 4 weeks clotrimazole-betamethasone 1-0.05 % 1 appl topical BID 2 weeks divalproex (Depakote) 250 mg PO TID gabapentin 300 mg PO BID loperamide (Imodium A-D) 2 mg PO BID PRN miconazole nitrate 2% (Zeasorb AF) 1 appl topical BID omeprazole 40 mg PO BID polyethylene glycol 3350 (Miralax) 17 grams PO DAILY sucralfate 1 g PO BID tamsulosin 0.4 mg PO DAILY 90 days Tobacco use date assessed: 01/25/24 Fall risk assessment: No Falls in past year Last assessed Fall Risk: 01/25/24 Dental Screening Dental Screen Date: 01/25/24 Did you have a dental visit in the last 12 months?: No Did you have a dental problem in the last 6 months where you did not have access to dental care?: No HPI abdominal pain, dark urine, ED follow up 01/14 HPI Details 73-year-old male with mental behavior problem Parkinson's disease seizure disorder BPH hypercholesterolemia GERD coming in for an acute problem. Last seen in September 2023. Last colonoscopy was done in September 2021 and was advised repeat in 3 years. Review of the notes had an ultrasound done on the kidneys December 2023 showing mild bladder wall thickening as a result from chronic bladder obstruction/infection mildly enlarged prostate gland 38.2 cc admitted in December for nausea vomiting and diarrhea, cough diagnosis of acute urinary tract infection treated with ceftriaxone sent for rehab [facility] Medical History BPH (benign prostatic hyperplasia) COPD (chronic obstructive pulmonary disease) SARA (generalized anxiety disorder) GERD (gastroesophageal reflux disease) Hypercholesterolemia Intractable hiccups Mental and behavioral problem Parkinsons disease Rib fractures Right carpal tunnel syndrome Seizure disorder Tubular adenoma of colon Surgical History History of carpal tunnel release History of cholecystectomy Hx of colonoscopy Hx of hernia repair Hx of tonsillectomy Family History Father Lung cancer Mother Brain cancer COPD (chronic obstructive pulmonary disease) Social History Housing: Assisted Living Facility Alcohol intake: current Alcohol intake frequency: does not drink Patient Tobacco Use Status: Never used Tobacco e-Cigarette/Vaping Use: Never Used Second Hand Smoke Exposure: No service: No Current occupational status: retired Cognitive needs: Yes (walker) Hearing needs: Yes (hearing aids in both ears) Vision needs: Yes (glasses) Questionnaire PHQ-9 Over the last 2 weeks, how often have you been bothered by any of the following problems? 1. Little interest or pleasure in doing things: not at all 2. Feeling down, depressed, or hopeless: not at all 3. Trouble falling or staying asleep, or sleeping too much: not at all 4. Feeling tired or having little energy: not at all 5. Poor appetite or overeating: not at all 6. Feeling bad about yourself - or that you are a failure or have let yourself or your family down: not at all 7. Trouble concentrating on things, such as reading the newspaper or watching television: not at all 8. Moving or speaking so slowly that other people could have noticed. Or the opposite - being so fidgety or restless that you have been moving around a lot more than usual: not at all 9. Thoughts that you would be better off or of hurting yourself in some way: not at all Total score: 0 Depression Screening Interpretation: Negative Depression Screening Done: Yes 57477 - PHQ-9 Billing: Yes Source: Developed by Drs. Jeff Ngo, Jasmina Carlos, Kevin Pratt and colleagues, with an educational roge from [employer]. Thrive Questionnaire Date Thrive assessed: 01/25/24 I am a: Patient What is your living situation today?: I have a steady place to live Within the past 12 months, did the food you bought not last and you didn't have the money to get more?: Never true Within the past 12 months, did you worry whether your food would run out before you got money to buy more?: Never true Do you have trouble paying for medicines?: No Do you have trouble getting transportation to medical appointments?: No Do you have trouble paying your heating and electricity bill?: No Do you have trouble taking care of your child, family member or friend?: No Do you have trouble with day-to-day activities such as bathing, preparing meals, shopping, managing finances, etc.?: No Are you currently unemployed and looking for a job?: No Are you interested in more education?: No Please select the resources that you would like help with: None Currently or been in a relationship where the following occur: no concerns reported THRIVE Score: 0 AUDIT C Alcohol Use Questionnaire (AUDIT-C) 1. How often do you have a drink containing alcohol?: Never 3. How often do you have six or more drinks on one occasion?: Never Total Score: 0 Score Reviewed/Action Taken: No SARA-7 AMB Questionnaire SARA-7 Date SARA - 7 assessed: 01/25/24 Feeling nervous, anxious, or on edge: 0 = Not at all Not being able to stop or control worryin = Not at all Worrying too much about different things: 0 = Not at all Trouble relaxin = Not at all Being so restless that it is hard to sit still: 0 = Not at all Becoming easily annoyed or irritable: 0 = Not at all Feeling afraid as if something awful might happen: 0 = Not at all Total SARA-7 score (0-4 normal; 5-9 mild; 10-14 moderate; 15-21 severe): 0 Source: Developed by Drs. Jeff Ngo, Jasmina Carlos, Kevin Pratt and colleagues, with an educational roge from [employer]. SARA-7 Assessment Billing SARA-7 Assessment Tool: SARA-7 Assessment 47250 Physical exam (Primary Care) Vital Signs: Last Vital Signs Pulse 60 01/25/24 13:33 BP 102/64 01/25/24 13:33 Pulse Ox 98 01/25/24 13:33 Oxygen Delivery Method Room Air 01/25/24 13:33 BMI result Body Mass Index 21.7 Tobacco/Smoking Status: Tobacco use Status Tobacco use date assessed 01/25/24 01/25/24 13:36 Patient Tobacco Use Status Never used Tobacco 01/25/24 13:36 e-Cigarette/Vaping Use Never Used 01/25/24 13:36 PHQ-9: PHQ-9 Score PHQ-9: Total score 0 01/25/24 13:51 Depression Screening Interpretation: Negative Thrive Assessment: Date of Thrive Assessment Date Thrive assessed 01/25/24 01/25/24 13:36 Currently or been in a relationship where the following occur: no concerns reported Const General: alert; No acute distress Eyes Conjunctivae: conjunctivae normal Resp Auscultation: clear to auscultation bilaterally Cardio Rate: regular rate Rhythm: regular rhythm GI Inspection: Yes normal to inspection Other: PAtient does not want me to open the prepuce to show the glans - also has a rash on the groin but decline for me to move the leg Extrem General: Yes normal to inspection and No edema Assessment and Plan Assessment & Plan (1) Dysuria: Code(s): R30.0 - Dysuria Plan: Patient was not able to give a urine sample. Empirically treated with Cipro 500 twice a day for 7 days but still advised to get the urinalysis tested. 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: Code(s): B35.6 - Tinea cruris Plan: Lotrisone cream prescribed to placed on the groin as well as on the glans penis twice a day for 1 week Orders: Orders UA CC w/rflx Micro + Cult Today R30.0 - Dysuria Medications: New ciprofloxacin HCl (Cipro) 500 mg PO BID 14 tabs 0RF R30.0 - Dysuria clotrimazole-betamethasone 1-0.05 % apply to groin bid and to prepuce 1 appl topical BID 2 weeks 45 grams 0RF B35.6 - Tinea cruris Coding Level of Care Code Est Pt Level 4 (67707) Diagnoses Dysuria R30.0 Mental and behavioral problem F48.9; F69 BPH (benign prostatic hyperplasia) N40.0 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
== END 2024-01-25 14:26 | disposition home or self-care (01) ==
PROVIDERS: PCP Internal Medicine; Visit Provider Internal Medicine
DX: R30.0 Dysuria (principal); F48.9 Nonpsychotic mental disorder, unspecified; F69 Unspecified disorder of adult personality and behavior; N40.0 Benign prostatic hyperplasia without lower urinary tract symptoms; B35.6 Tinea cruris
CPT/HCPCS: 99214

== ENCOUNTER 2024-01-29 10:56 | Outpatient (REF) | payer MEDICARE, MEDICAID, SELFPAY ==
[2024-01-29 14:22] LABS: Appearance Urine Clear; Color Urine Yellow; Glucose Urine UA Negative (Negative); Leukocyte Esterase Urine Negative (Negative); Nitrite Urine Negative (Negative); PH 7.5 (5.0-9.0); Urine Blood Negative (Negative); Urine Ketones Trace mg/dL (Negative); Urine Protein Negative (Neg-Trace)
== END 2024-01-29 10:57 | disposition home or self-care (01) ==
LOC: HO.LNP 10:56
PROVIDERS: Visit Provider Internal Medicine
DX: R30.0 Dysuria (principal)
CPT/HCPCS: 81003

== ENCOUNTER 2024-02-12 13:04 | Outpatient (AMB) | payer MEDICARE, MEDICAID, SELFPAY ==
[2024-02-12 13:09] VITALS: BP 110/52; PULSE 66; O2SAT 96; BMI 21.6
--- NOTE | 2024-02-12 13:09 | A.OFFPC_ITS ---
Vital Signs 02/12/24 13:09 Height 5 ft 8 in Weight 142 lb BMI 21.6 BP 110/52 L Blood Pressure Location Lt brachial Position Sitting Pulse 66 Pulse Source Pulse Oximeter Pulse Oximetry (%) 96 Oxygen Delivery Method Room Air Intake Visit Reasons: Annual Exam Allergies ammonia [AMMONIA] Allergy (Intermediate, Verified 02/12/24 13:09) SHORTNESS OF BREATH sodium hypochlorite solution [Sodium Hypochlorite] Allergy (Intermediate, Verified 02/12/24 13:09) SHORTNESS OF BREATH ( BLEACH ) Medication List - Last Reconciled 02/12/24 by Yaw Mcdaniel MD acetaminophen ER (Tylenol 8 Hour) 650 mg PO Q6H bisacodyl 10 mg VT DAILY PRN carbidopa-levodopa 25-100 mg 1 tab PO QID chlorpromazine 50 mg PO Q6-8H clonazepam 0.5 mg PO DAILY clotrimazole 1% 1 appl topical BID 4 weeks divalproex (Depakote) 250 mg PO TID gabapentin 300 mg PO BID loperamide (Imodium A-D) 2 mg PO BID PRN miconazole nitrate 2% (Zeasorb AF) 1 appl topical BID omeprazole 40 mg PO BID polyethylene glycol 3350 (Miralax) 17 grams PO DAILY sucralfate 1 g PO BID tamsulosin 0.4 mg PO DAILY 90 days Tobacco use date assessed: 01/25/24 Fall risk assessment: No Falls in past year Last assessed Fall Risk: 02/12/24 Dental Screening Dental Screen Date: 01/25/24 HPI Annual Exam HPI Details 73-year-old male with mental behavior pr oblem having BPH seizure disorder Parkinson's disease history of intractable hiccups hypercholesterolemia GERD coming in for physical exam last seen in January 2024.. no papedrs brought in. [facility] Medical History BPH (benign prostatic hyperplasia) COPD (chronic obstructive pulmonary disease) SARA (generalized anxiety disorder) GERD (gastroesophageal reflux disease) Hypercholesterolemia Intractable hiccups Mental and behavioral problem Parkinsons disease Rib fractures Right carpal tunnel syndrome Seizure disorder Tubular adenoma of colon Surgical History History of carpal tunnel release History of cholecystectomy Hx of colonoscopy Hx of hernia repair Hx of tonsillectomy Family History Father Lung cancer Mother Brain cancer COPD (chronic obstructive pulmonary disease) Social History Housing: Assisted Living Facility Alcohol intake: current Alcohol intake frequency: does not drink Patient Tobacco Use Status: Never used Tobacco e-Cigarette/Vaping Use: Never Used Second Hand Smoke Exposure: No service: No Current occupational status: retired Cognitive needs: Yes (walker) Hearing needs: Yes (hearing aids in both ears) Vision needs: Yes (glasses) Questionnaire PHQ-9 Over the last 2 weeks, how often have you been bothered by any of the following problems? 1. Little interest or pleasure in doing things: not at all 2. Feeling down, depressed, or hopeless: not at all 3. Trouble falling or staying asleep, or sleeping too much: not at all 4. Feeling tired or having little energy: not at all 5. Poor appetite or overeating: not at all 6. Feeling bad about yourself - or that you are a failure or have let yourself or your family down: not at all 7. Trouble concentrating on things, such as reading the newspaper or watching television: not at all 8. Moving or speaking so slowly that other people could have noticed. Or the opposite - being so fidgety or restless that you have been moving around a lot more than usual: not at all 9. Thoughts that you would be better off or of hurting yourself in some way: not at all Total score: 0 Depression Screening Interpretation: Negative Depression Screening Done: Yes 82364 - PHQ-9 Billing: Yes Source: Developed by Drs. Jeff Ngo, Jasmina Carlos, Kevin Pratt and colleagues, with an educational roge from [employer]. Thrive Questionnaire Date Thrive assessed: 01/25/24 AUDIT C Alcohol Use Questionnaire (AUDIT-C) 1. How often do you have a drink containing alcohol?: Never 3. How often do you have six or more drinks on one occasion?: Never Total Score: 0 Score Reviewed/Action Taken: No SARA-7 AMB Questionnaire SARA-7 Date SARA - 7 assessed: 01/25/24 Source: Developed by Volodymyr Hammondet B.W. Terrance, Kevin Pratt and colleagues, with an educational roge from [employer]. Review of Systems Const Denies poor appetite and Denies weakness Eyes Denies no additional complaints ENT Reports Normal hearing present, Denies dizziness, Denies nasal congestion, Denies tinnitus and Denies sore throat Card Denies chest pain, Denies syncope, Denies rapid heart rate and Denies dyspnea Resp Denies cough and Denies dyspnea GI Denies change in stool character, Reports constipation, Denies diarrhea, Denies nausea and Denies vomiting Denies dysuria and Denies urinary frequency Neuro Reports Normal hearing present, Denies confusion, Denies dizziness, Denies syncope and Denies weakness Psych Denies confusion Physical exam (Primary Care) Vital Signs: Last Vital Signs Pulse 66 02/12/24 13:09 BP 110/52 L 02/12/24 13:09 Pulse Ox 96 02/12/24 13:09 Oxygen Delivery Method Room Air 02/12/24 13:09 BMI result Body Mass Index 21.6 Tobacco/Smoking Status: Tobacco use Status Tobacco use date assessed 01/25/24 02/12/24 13:10 Patient Tobacco Use Status Never used Tobacco 02/12/24 13:10 e-Cigarette/Vaping Use Never Used 02/12/24 13:10 PHQ-9: PHQ-9 Score PHQ-9: Total score 0 02/12/24 13:10 Depression Screening Interpretation: Negative Thrive Assessment: Date of Thrive Assessment Date Thrive assessed 01/25/24 02/12/24 13:10 Const General: No confusion Orientation/consciousness: No confusion HENMT Other: declined taking the hearing aid out Head: Yes normocephalic Ears: external ears normal Face and sinus: Yes normal facial exam Mouth: moist mucous membranes Throat: Yes tonsils normal Eyes Conjunctivae: conjunctivae normal Pupils: Equal, round and reactive pupils present and Pupil accommodation reflex normal Direct Ophthalmoscopy: normal light reflex Neck Neck: No lymphadenopathy Thyroid: Thyroid normal Chest Chest palpation & inspection: normal inspection of the chest Resp Effort & Inspection: normal respiratory effort and no audible wheezes Auscultation: clear to auscultation bilaterally, no crackles, no wheezes and lung sounds not diminished Cardio Rate: regular rate Rhythm: regular rhythm Peripheral pulses: radial pulses present and dorsalis pedis present GI Other: decline rectal Palpation (GI): no masses Auscultation: normal bowel sounds and normoactive bowel sounds Rectal Exam - Male: Yes deferred Other: part of the glans penis is pinkish now but patient declined wanting me to retract the prepuse Skin General skin exam: no rashes or lesions noted Rashes: no rashes Neuro General: No confusion Cranial nerves: Yes Equal, round and reactive pupils present and Yes Normal hearing present Gait exam (Neuro): Normal gait present Motor exam (neuro): 5/5 motor strength present throughout Deep tendon reflexes (DTR's): Right brachioradialis reflex intensity grade: 2+, Left brachioradialis reflex intensity grade: 2+, Right patellar reflex intensity grade: 2+ and Left patellar reflex intensity grade: 2+ Extrem General: No edema Assessment and Plan Assessment & Plan (1) Annual physical exam: Code(s): Z00.00 - Encounter for general adult medical examination without abnormal findings (2) Seizure disorder: Code(s): G40.909 - Epilepsy, unspecified, not intractable, without status epilepticus Plan: Continue with Depakote (3) Parkinsons disease: Code(s): G20 - Parkinson's disease Plan: Continue with levodopa carbidopa (4) BPH (benign prostatic hyperplasia): Code(s): N40.0 - Benign prostatic hyperplasia without lower urinary tract symptoms Plan: On tamsulosin 0.4 mg once a day (5) Intractable hiccups: Code(s): R06.6 - Hiccough Plan: Placed on chlorpromazine (6) Hypercholesterolemia: Code(s): E78.00 - Pure hypercholesterolemia, unspecified Plan: Avoid fried foods, chicken skin, eggs, butter margarine, pastries and meat. Be it pork or beef they have a lot of cholesterol LDL goal of less than 130 and triglyceride of less than 150. (7) GERD (gastroesophageal reflux disease): Comment: Erosive gastritis with Schatzki's ring Code(s): K21.9 - Gastro-esophageal reflux disease without esophagitis Plan: Avoid the foods that causes that usually spicy foods, tomato products, juices, coffee, soda and foods that your sensitive to. After eating do not lie down, allow 3-4 hours before in lie down. And keep the head of bed above 30 degrees to avoid the acid from going up. (8) Mental and behavioral problem: Code(s): F48.9 - Nonpsychotic mental disorder, unspecified; F69 - Unspecified disorder of adult personality and behavior Plan: Continue follow-up with counseling and therapy. (9) Balanitis: Code(s): N48.1 - Balanitis Plan: resolving Orders: Orders Comprehensive Met. Panel Today G40.909 - Epilepsy, unspecified, not intractable, without status epilepticus Lipid Panel Today E78.00 - Pure hypercholesterolemia, unspecified, G40.909 - Epilepsy, unspecified, not intractable, without status epilepticus Vitamin B12 and Folate Today G40.909 - Epilepsy, unspecified, not intractable, without status epilepticus UA CC w/rflx Micro + Cult Today G40.909 - Epilepsy, unspecified, not intractable, without status epilepticus, R30.0 - Dysuria Complete Blood Count Auto Diff Today G40.909 - Epilepsy, unspecified, not intractable, without status epilepticus Free T4 (Free Thyroxine) Today G40.909 - Epilepsy, unspecified, not intractable, without status epilepticus Thyroid Stimulating Hormone Today G40.909 - Epilepsy, unspecified, not intractable, without status epilepticus Valproate Today G40.909 - Epilepsy, unspecified, not intractable, without status epilepticus Medications: Refilled clotrimazole 1% 1 appl topical BID 4 weeks 45 grams 0RF B35.6 - Tinea cruris Discontinued clotrimazole-betamethasone 1-0.05 % apply to groin bid and to prepuce Discontinued Reason: Patient Completed Course 1 appl topical BID 2 weeks 45 grams 0RF B35.6 - Tinea cruris Coding Level of Care Code Est Pt Prev Care >65y(11283) Diagnoses Annual physical exam Z00.00 Seizure disorder G40.909 Parkinsons disease G20 BPH (benign prostatic hyperplasia) N40.0 Intractable hiccups R06.6 Hypercholesterolemia E78.00 GERD (gastroesophageal reflux disease) K21.9 Mental and behavioral problem F48.9; F69 Balanitis N48.1
== END 2024-02-12 14:04 | disposition home or self-care (01) ==
PROVIDERS: Visit Provider Internal Medicine
DX: Z00.00 Encounter for general adult medical examination without abnormal findings (principal); G40.909 Epilepsy, unspecified, not intractable, without status epilepticus; G20.C Parkinsonism, unspecified; R06.6 Hiccough; N40.0 Benign prostatic hyperplasia without lower urinary tract symptoms; E78.00 Pure hypercholesterolemia, unspecified; K21.9 Gastro-esophageal reflux disease without esophagitis; F48.9 Nonpsychotic mental disorder, unspecified; F69 Unspecified disorder of adult personality and behavior; N48.1 Balanitis
CPT/HCPCS: 99397

== ENCOUNTER 2024-02-22 09:51 | Outpatient (REF) | payer MEDICARE, MEDICAID, SELFPAY ==
[2024-02-22 11:25] LABS: MANUAL DIFF FLAG NO
[2024-02-22 11:34] LABS: Basophils Percent Auto 0.7 % (0-2); Eosinophils Absolute Auto 0.1 X10*3/uL (0.0-0.4); Eosinophils Percent Auto 2.2 % (0-4); Hematocrit 49.9 % (42.0-52.0); Hemoglobin 16.8 g/dl (14.0-18.0); Imm Gran Abs Auto 0.01 X10*3/uL (0.00-0.03); Imm Gran Pct Auto 0.2 % (0.0-0.4); Lymphocytes Absolute Auto 1.6 X10*3/uL (1.2-4.9); Lymphocytes Percent Auto 36.1 % (20-40); Mean Corpuscular HGB Conc 33.7 g/dl (31.0-36.0); Mean Corpuscular Hemoglobin 33.3 pg (27.0-33.0); Mean Platelet Volume 11.4 fL (9.4-12.4); Monocytes Absolute Auto 0.3 X10*3/uL (0.1-1.2); Monocytes Percent Auto 6.3 % (2-11); Neutrophils Absolute Auto 2.4 x10*3/uL (2.0-8.3); Neutrophils Percent Auto 54.5 % (45-73); Red Blood Count 5.04 X10*6/uL (4.60-5.80); Red Cell Distribution Width 13.8 % (11.0-16.0); White Blood Count 4.5 X10*3/uL (4.8-10.8)
[2024-02-22 11:35] LABS: Platelet Count 95 X10*3/uL (160-400)
[2024-02-22 12:20] LABS: Alanine Aminotransferase 10 U/L (0-40); Albumin Level 4.3 g/dL (3.5-5.0); Alkaline Phosphatase 45 U/L (39-117); Anion Gap 13 (12-20); Aspartate Amino Transferase 21 U/L (5-37); Bilirubin Total 1.4 mg/dL (0.0-1.0); Blood Urea Nitrogen 24 mg/dL (9-16); Calcium 9.6 mg/dL (8.4-10.2); Carbon Dioxide 26 mmol/L (22-29); Chloride 108 mmol/L (96-108); Cholesterol 162 mg/dL (<200); Estimated Glomerular Filt Rate > 60; Glucose Random 89 mg/dL (60-115); HDL Cholesterol 48 mg/dL (>40); LDL Cholesterol Calculated 101 mg/dL (<100); Potassium 4.2 mmol/L (3.3-5.1); Sodium 143 mmol/L (135-145); Triglycerides 69 mg/dL (<150)
[2024-02-22 12:45] LABS: Free T4 (Free Thyroxine) 0.86 ng/dL (0.71-1.85); Thyroid Stimulating Hormone 0.86 uIU/mL (0.32-4.0)
[2024-02-22 12:47] LABS: Valproate 40.5 mcg/mL (50.0-100.0)
[2024-02-22 13:19] LABS: Folate 13.2 ng/mL (> or = 4.0); Vitamin B12 587 pg/mL (200-900)
== END 2024-02-22 09:52 | disposition home or self-care (01) ==
LOC: HO.WFDLDS 09:51
PROVIDERS: Visit Provider Internal Medicine
DX: G40.909 Epilepsy, unspecified, not intractable, without status epilepticus (principal); E78.00 Pure hypercholesterolemia, unspecified
CPT/HCPCS: 36415; 80053; 80061; 80164; 82607; 82746; 84439; 84443; 85025

== ENCOUNTER 2024-02-27 11:12 | Outpatient (REF) | payer MEDICARE, MEDICAID, SELFPAY | END 2024-02-27 11:13 | disposition home or self-care (01) | LOC: HO.LAB 11:12 | PROVIDERS: Visit Provider Urology | DX: N39.0 Urinary tract infection, site not specified (principal); R32 Unspecified urinary incontinence; N48.1 Balanitis; N40.0 Benign prostatic hyperplasia without lower urinary tract symptoms | CPT/HCPCS: 81003; 87086; 99212 ==

== ENCOUNTER 2024-02-27 11:12 | Outpatient (AMB) | payer MEDICARE, MEDICAID, SELFPAY ==
--- NOTE | 2024-02-27 11:29 | A.OFFVIS_ITS ---
Intake Visit Reasons: 1Y Follow Up Intake Note: Patient is Present for Follow Up Urology Medication: tamsulosin Antibiotic Allergies:none Blood Thinners:none Allergies ammonia [AMMONIA] Allergy (Intermediate, Verified 02/27/24 11:30) SHORTNESS OF BREATH sodium hypochlorite solution [Sodium Hypochlorite] Allergy (Intermediate, Verified 02/27/24 11:30) SHORTNESS OF BREATH ( BLEACH ) HPI Comments Details: Grady is a pleasant male. He is seen for the following urologic condition - lower urinary tract symptoms Is under [facility] care Accompanied by wrapper caser PVR 188 cc, PSA 2.4 Continue with tamsulosin 12 month follow-up Lower urinary tract symptoms Says he has effective emptying Good stream Minimal nocturia Control of urge and frequency Current medications tamsulosin Prior PSA 06/09 0.8 Comorbidities Parkinson's disease Therapeutic plan continue yearly evaluation [facility] Medical History Right carpal tunnel syndrome SARA (generalized anxiety disorder) COPD (chronic obstructive pulmonary disease) Tubular adenoma of colon Rib fractures GERD (gastroesophageal reflux disease) Mental and behavioral problem Hypercholesterolemia Intractable hiccups BPH (benign prostatic hyperplasia) Seizure disorder Parkinsons disease Surgical History Hx of colonoscopy Hx of hernia repair Hx of tonsillectomy History of carpal tunnel release History of cholecystectomy Family History Father Lung cancer Mother Brain cancer COPD (chronic obstructive pulmonary disease) Social History Housing: Assisted Living Facility Alcohol intake: current Alcohol intake frequency: does not drink Patient Tobacco Use Status: Never used Tobacco e-Cigarette/Vaping Use: Never Used Second Hand Smoke Exposure: No service: No Current occupational status: retired Cognitive needs: Yes (walker) Hearing needs: Yes (hearing aids in both ears) Vision needs: Yes (glasses) Review of Systems Const Denies chills and Denies fever(s) Card Reports no additional complaints and Denies syncope Resp Denies cough GI Denies abdominal pain and Denies heartburn Reports as per HPI and Denies change in libido Neuro Denies syncope Psych Denies change in libido Endo Denies change in libido Physical Exam Const General: cooperative, healthy appearing, comfortable and no acute distress Orientation/consciousness: patient oriented x3 HEENT Face and sinus: Yes normal facial exam Mouth: moist mucous membranes Neck Neck: Yes normal visual inspection, Yes full ROM and Yes trachea midline Chest Chest palpation & inspection: normal inspection of the chest Resp Effort & Inspection: normal respiratory effort, able to speak in complete s entences and no respiratory distress GI Inspection: Yes normal to inspection Back/Spine/Pelvis Cervical Spine: normal cervical lordosis Thoracic/Lumbar Spine: thoracic and lumbar spine normal to inspection Skin General skin exam: no rashes or lesions noted Neuro General: patient oriented x3, gait normal, tone normal and moves all extremities Extrem General: Yes normal to inspection and Yes capillary refill normal Results AMB Urinalysis, Automated UA Leukoctes 0 Bozena/uL Last Edit by AUGUST Manuel on 02/27/24 11:32 UA Nitrite Negative Last Edit by AUGUST Manuel on 02/27/24 11:32 UA Urobilinogen 1 mg/dL Last Edit by AUGUST Manuel on 02/27/24 11:32 UA Protein 15 mg/dL Last Edit by AUGUST Manuel on 02/27/24 11:32 UA pH 7.5 Last Edit by AUGUST Manuel on 02/27/24 11:32 UA Blood 0 Cole/uL Last Edit by AUGUST Manuel on 02/27/24 11:32 UA Specific [place] 1.015 Last Edit by AUGUST Manuel on 02/27/24 11: 32 UA Ketone Negative Last Edit by AUGUST Manuel on 02/27/24 11:32 UA Bilirubin 0 mg/dL Last Edit by AUGUST Manuel on 02/27/24 11:32 UA Glucose 0 mg/dL Last Edit by AUGUST Manuel on 02/27/24 11:32 Results Reviewed Results Reviewed: Laboratory Last Values Urine pH (Auto) 7.5 02/27/24 11:30 Specific [place] (Auto) 1.015 02/27/24 11:30 Urine Protein (Auto) 15 mg/dL 02/27/24 11:30 Glucose (UA)(Auto) 0 mg/dL 02/27/24 11:30 Urine Ketones (Auto) Negative 02/27/24 11:30 Urine Blood (Auto) 0 Cole/uL 02/27/24 11:30 Urine Nitrite (Auto) Negative 02/27/24 11:30 Urine Bilirubin (Auto) 0 mg/dL 02/27/24 11:30 Urine Urobilinogen (Auto) 1 mg/dL 02/27/24 11:30 Leukocyte Esterase (Auto) 0 Bozena/uL 02/27/24 11:30 Assessment & Plan Assessment & Plan (1) Urinary incontinence: Code(s): R32 - Unspecified urinary incontinence Category: Medical (2) Balanitis: Code(s): N48.1 - Balanitis Category: Medical (3) BPH (benign prostatic hyperplasia): Code(s): N40.0 - Benign prostatic hyperplasia without lower urinary tract symptoms Category: Medical Plan Twelve month follow-up Orders: Orders Urine Culture 02/27/24 N39.0 - Urinary tract infection, site not specified AMB Urinalysis Automated 02/27/24 N39.0 - Urinary tract infection, site not specified, Z13.9 - Encounter for screening, unspecified Patient Instructions: Imaging studies, laboratory and physical exam results were discussed and reviewed in detail. No major barriers to patient understanding were identified. An opportunity to ask questions regarding the treatment plan was provided. All questions were answered. The patient expressed understanding and agreement with the above treatment plan. The patient is aware they should contact our office by phone for worsening of their current condition or the appearance of new urologic symptoms. Compliance is encouraged with any medications and followup testing that is ordered. It is a privilege to participate in the urologic care of your patient. If you have any questions or concerns regarding treatment for the above conditions, or other urologic issues, please do not hesitate to contact me. The office telephone contact is [phone]. This note is constructed using voice recognition software. While every effort has been made to ensure accuracy licensed mortgage loan officer errors may have been included. Yours sincerely, Dr Swapnil Hunter MD, [facility] - Urology Providers of Expert, Compassionate Care for the Genitourinary System Coding Level of Care Code Est Pt Level 4 (86569) Diagnoses Urinary incontinence R32 Balanitis N48.1 BPH (benign prostatic hyperplasia) N40.0
== END 2024-02-27 12:03 | disposition home or self-care (01) ==
PROVIDERS: Visit Provider Urology
DX: R32 Unspecified urinary incontinence (principal); N48.1 Balanitis; N40.0 Benign prostatic hyperplasia without lower urinary tract symptoms
CPT/HCPCS: 99213

== ENCOUNTER 2024-05-27 12:41 | Outpatient (AMB) | payer MEDICARE, MEDICAID, SELFPAY ==
[2024-05-27 12:45] VITALS: BP 100/62; PULSE 58; BMI 20.9
--- NOTE | 2024-05-27 12:45 | A.OFFPC_ITS ---
Vital Signs 05/27/24 12:45 Height 5 ft 8 in Weight 137 lb 9.095 oz BMI 20.9 BP 100/62 Blood Pressure Location Lt brachial Position Sitting Pulse 58 Pulse Source Pulse Oximeter Oxygen Delivery Method Room Air Intake Visit Reasons: Difficulty Swallowing Intake Note: Patient is here to follow-up after a visit the emergency department Home Sales Service Professional Required: No Allergies ammonia [AMMONIA] Allergy (Intermediate, Verified 05/27/24 12:45) SHORTNESS OF BREATH sodium hypochlorite solution [Sodium Hypochlorite] Allergy (Intermediate, Verified 05/27/24 12:45) SHORTNESS OF BREATH ( BLEACH ) Medication List - Last Reconciled 05/27/24 by Donna Morales PA-C acetaminophen ER (Tylenol 8 Hour) 650 mg PO Q6H bisacodyl 10 mg MS DAILY PRN carbidopa-levodopa 25-100 mg 1 tab PO QID chlorpromazine 50 mg PO Q6-8H clonazepam 0.5 mg PO DAILY clotrimazole 1% 1 appl topical BID 4 weeks divalproex (Depakote) 250 mg PO TID gabapentin 300 mg PO BID loperamide (Imodium A-D) 2 mg PO BID PRN miconazole nitrate 2% (Zeasorb AF) 1 appl topical BID omeprazole 40 mg PO BID polyethylene glycol 3350 (Miralax) 17 grams PO DAILY sucralfate 1 g PO BID tamsulosin 0.4 mg PO DAILY 90 days Tobacco use date assessed: 01/25/24 Fall risk assessment: No Falls in past year Last assessed Fall Risk: 05/27/24 Dental Screening Dental Screen Date: 01/25/24 HPI Difficulty Swallowing HPI Details 73-year-old male with past medical histo ry of Parkinson's disease, seizure disorder, BPH, hypercholesterolemia, GERD, and behavioral problem last seen by Dr. Mcdaniel 01/2024 coming in for acute problem.? In review of the notes, patient was seen in [facility] for acute low back pain after a fall. Labs, CT, and x-rays unremarkable for acute abnormality.? Urinalysis was suggestive of urinary tract infection and he underwent treatment with Keflex and was discharged home.? He follows with Urology last seen 02/2024 considered stable on tamsulosin with follow up in 12 months. 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 Per [facility] the patient was having difficulty swallowing and has been taking around 15 minutes to swallow his daily medications and now having concern for aspiration. He also mentions he has continued low back pain from his fall. [facility] Medical History Right carpal tunnel syndrome SARA (generalized anxiety disorder) COPD (chronic obstructive pulmonary disease) Tubular adenoma of colon Rib fractures GERD (gastroesophageal reflux disease) Mental and behavioral problem Hypercholesterolemia Intractable hiccups BPH (benign prostatic hyperplasia) Seizure disorder Parkinsons disease Surgical History Hx of colonoscopy Hx of hernia repair Hx of tonsillectomy History of carpal tunnel release History of cholecystectomy Family History Father Lung cancer Mother Brain cancer COPD (chronic obstructive pulmonary disease) Social History Housing: Assisted Living Facility Alcohol intake: current Alcohol intake frequency: does not drink Patient Tobacco Use Status: Never used Tobacco e-Cigarette/Vaping Use: Never Used Second Hand Smoke Exposure: No service: No Current occupational status: retired Cognitive needs: Yes (walker) Hearing needs: Yes (hearing aids in both ears) Vision needs: Yes (glasses) Questionnaire Thrive Questionnaire Date Thrive assessed: 01/25/24 AUDIT C Alcohol Use Questionnaire (AUDIT-C) 1. How often do you have a drink containing alcohol?: Never 3. How often do you have six or more drinks on one occasion?: Never Total Score: 0 Score Reviewed/Action Taken: No SARA-7 AMB Questionnaire SARA-7 Date SARA - 7 assessed: 01/25/24 Source: Developed by Drs. Jeff Ngo, Jasmina Carlos, Kevin Partt and colleagues, with an educational roge from [employer]. Review of Systems Const Denies body aches, Denies chills, Denies fever(s), Denies headache(s) and Denies poor appetite Eyes Reports no additional complaints ENT Reports dysphagia, Denies dizziness, Denies headache(s) and Denies odynophagia Card Denies chest pain, Denies syncope, Denies edema, Denies irregular heart rhythm, Denies lightheadedness and Denies dyspnea Resp Denies cough and Denies dyspnea GI Denies abdominal pain, Denies constipation, Reports dysphagia, Denies diarrhea, Denies nausea, Denies odynophagia and Denies vomiting Reports no additional complaints Musc Reports as per HPI and Reports abnormal gait (Ambulates with walker) Skin/Breast Reports system reviewed and no additional complaints, except as documented Neuro Reports abnormal gait (Ambulates with walker), Denies dizziness, Denies syncope and Denies headache(s) Psych Reports no additional complaints Physical exam (Primary Care) Vital Signs: Last Vital Signs Pulse 58 05/27/24 12:45 BP 100/62 05/27/24 12:45 Oxygen Delivery Method Room Air 05/27/24 12:45 BMI result Body Mass Index 20.9 Tobacco/Smoking Status: Tobacco use Status Tobacco use date assessed 01/25/24 05/27/24 12:46 Patient Tobacco Use Status Never used Tobacco 05/27/24 12:46 e-Cigarette/Vaping Use Never Used 05/27/24 12:46 Thrive Assessment: Date of Thrive Assessment Date Thrive assessed 01/25/24 05/27/24 12:46 Const General: cooperative, healthy appearing, comfortable and no acute distress Orientation/consciousness: patient oriented x3 HENMT Head: Yes normocephalic Ears: hearing grossly normal bilaterally General nose exam: Normal external nose present Eyes General: appearance normal, both eyes and all related structures Conjunctivae: conjunctivae normal Neck Neck: Yes full ROM and Yes no lymphadenopathy Resp Effort & Inspection: normal respiratory effort Auscultation: clear to auscultation bilaterally, no crackles, no rales, no rhonchi and no wheezes Cardio Rate: regular rate Rhythm: regular rhythm General: Yes no CVA tenderness Back/Spine/Pelvis Other: Tenderness to palpation over the lower back and paraspinous muscles Back: no CVA tenderness Skin General skin exam: no rashes or lesions noted Neuro General: patient oriented x3 Gait exam (Neuro): Normal gait present Extrem General: Yes normal to inspection, Yes full ROM and No edema Psych Affect: normal affect Attitude: cooperative Insight: Good insight present (Psych) Judgement: Good judgement present (Psych) Assessment and Plan Assessment & Plan (1) Dysuria: Code(s): R30.0 - Dysuria Plan: Patient does not complain of any pain with urination or urinary frequency at this time. Still completing course of cephalexin given by [facility]. We will repeat urinalysis with culture after completion of the antibiotics in 3-4 days. (2) Dysphagia: Code(s): R13.10 - Dysphagia, unspecified Plan: Per [facility] patient has been having slowed swallowing and there was concern for aspiration. We will order modified barium swallow for evaluation and follow up in 3 months. (3) Low back pain: Code(s): M54.50 - Low back pain, unspecified Plan: Patient has been using Tylenol as needed for back pain with mild relief. Still complaining of [id number] back pain worse with movement. We will trial lidocaine patches along with Tylenol as needed for pain. We can consider physical therapy if back pain does not improve. Plan This note was constructed using voice recognition software. While every effort has been made to ensure accuracy and cotton jammer, still areas may have been included sometimes these areas may affect the content or meeting of the given symptoms. Total time spent caring for the patient today was 30 minutes. This includes time spent before the visit reviewing the chart, time spent during the visit, and time spent after the visit and documentation. Orders: Orders UA CC w/rflx Micro + Cult Today R30.0 - Dysuria FL barium swallow modified Today R13.10 - Dysphagia, unspecified Medications: New lidocaine 5% leave on most painful area for up to 12 hrs 1 patch topical DAILY PRN 30 ea 0RF back pain Coding Level of Care Code Est Pt Level 4 (92516) Diagnoses Dysuria R30.0 Dysphagia R13.10 Low back pain M54.50
== END 2024-05-27 13:24 | disposition home or self-care (01) ==
PROVIDERS: PCP Internal Medicine
DX: R30.0 Dysuria (principal); R13.10 Dysphagia, unspecified; M54.50 Low back pain, unspecified
CPT/HCPCS: 99214

== ENCOUNTER 2024-07-02 09:49 | Outpatient (REF) | payer MEDICARE, MEDICAID, SELFPAY ==
--- NOTE | ~2024-07-02 | FL_ITS ---
EXAMINATION: Modified Barium Swallow CLINICAL INFORMATION: Dysphagia COMPARISON: None TECHNIQUE: Modified barium swallow was performed under lateral fluoroscopy with patient in standing position. Barium mixed with solids and liquids of different consistencies was administered by the speech pathologist. Examination was recorded in the fluoroscopy suite. FINDINGS: Laryngeal penetration was seen to the level of the vocal cords with the barium coated cookie. No subglottic aspiration observed. FLUOROSCOPY TIME: 2 minutes 25 seconds Number of Spot Images: N/A DOSE AREA PRODUCT: 773.6 uGy-m2 (microgray-meter squared) FL/FL Modified Barium Swallow IMPRESSION: 1. Laryngeal penetration was seen to level the vocal cords with the barium coated cookie. No subglottic aspiration observed. Refer to the speech therapy report for further clarification This procedure was performed by Victoriano Senior PA-C, and supervised by Dr. Blue Electronically signed by: Ayden Blue MD 07/02/2024 04:46 PM EDT
--- NOTE | 2024-07-04 11:20 | MHC.SPEECHCO ---
Dear reader, Alan Avila (: 54) participated in a Modified Barium Swallow Study (MBSS) on 07/02/24 conducted by myself alongside a Radiologist PA, Victoriano Senior. No aspiration was observed during the study. Penetration was observed with a Regular Solid that was removed with a subsequent swallow. He was also provided a 13mm Barium Pill. He had difficulty processing the pill on the oral phase, however subsequent bites of Puree Solid allowed the bill to go down into his esophagus with retention. There was retention of the pill in the lower esophagus. He was cued to take subsequent sips of Thin Liquid which allowed the pill to pass into the stomach. This incidental finding is non-diagnostic in the context of this study, but may warrant further examination with a full Barium Swallow or EGD to rule-out esophageal dysmotility, as deemed appropriate by his medical team. Given the results of today's study I recommend an unrestricted diet of Regular Solids and Thin Liquids. Given demonstration of mild oral impairment, will benefit from opting for solids that are easier to chew. Recommend oral medications be taken one at a time, whole, or crushed when possible, in a puree medium. Please feel free to contact our office with any further questions. A full report will be available with in 3 business days of the procedure. Thank you for the opportunity to participate in the care of this patient, Shawn Reis M.A., [facility] [employer]AN OPERATOR FIRST RESPONDER Speech-Language Pathologist
--- NOTE | 2024-07-09 12:26 | MHC.SL.IMP ---
Date of Plan of Treatment: 07/02/24 Onset of Symptoms/Illness: 05/27/24 Date Treatment Started: 07/02/24 Admitting Diagnosis: Parkinson's Primary Speech & Language Diagnosis: R13.12 Oropharyngeal Phase Dysphagia Secondary Speech & Language Diagnosis: G20 Parkinson?s disease Reason for Today's Visit: [id number] Modified Barium Swallow Study Comments: Admits difficulty swallowing pills. Pre-evaluation Dietary Consistencies: Regular Pre-evaluation Liquid Consistency: Thin Pre-evaluation Medication Administration: Crushed with Puree Medical History: Comments: Medical History Right carpal tunnel syndrome SARA (generalized anxiety disorder) COPD (chronic obstructive pulmonary disease) Tubular adenoma of colon Rib fractures GERD (gastroesophageal reflux disease) Mental and behavioral problem Hypercholesterolemia Intractable hiccups BPH (benign prostatic hyperplasia) Seizure disorder Parkinsons disease Surgical History Hx of colonoscopy Hx of hernia repair Hx of tonsillectomy History of carpal tunnel release History of cholecystectomy [facility] Fall Risk Assessment Score: Oral Motor Exam Facial Symmetry: Normal for Patient Symmetrical Oral Expression Ability: Mild Impairment Is patient able to manage secretions?: Yes Is patient able to produce volitional cough?: Yes Food and Liquid Trials: Oral Impairment: Lip Closure: 0=No labial escape Oral Impairment: Tongue Control During Bolus Hold: Did not test Oral Impairment: Bolus Preparation/Mastication: 1=Slow prolonged chewing/mashing with complete re-collection Oral Impairment: Bolus Transport/Lingual Motion: 1= Delayed initiation of tongue motion Oral Impairment: Oral Residue: 1=Trace residue lining oral structures Oral Impairment:Initiation of Pharyngeal Swallow: 3=Bolus head in pyriforms Pharyngeal Impairment: Soft Palate Elevation: 0=No bolus between soft palate (SP)/pharyngeal wall (PW) Pharyngeal Impairment: Laryngeal Elevation: 1=Partial thyroid cartilage/arytenoids to epiglottic petiole movement Pharyngeal Impairment: Anterior Hyoid Excursion: 1=Partial anterior movement Pharyngeal Impairment: Epiglottic Movement: 0=Complete inversion Pharyngeal Impairment: Laryngeal Vestibular Closure:: 1=Incomplete: narrow column air/contrast in laryngeal vestibule Pharyngeal Impairment: Pharyngeal Stripping Wave: 0=Present: complete Pharyngeal Impairment: Pharyngeal Contraction: Did not test Pharyngeal Impairment: Pharyngoesophageal Segment Openin=Complete distension and complete duration: no obstruction of flow Pharyngeal Impairment: Tongue Base (TB) Retraction: 1=Trace column of contrast/air between TB and posterior PW Pharyngeal Impairment: Pharyngeal Residue: 2=Collection of residue within or on pharyngeal structures Pharyngeal Impairment: Esophageal Clearance Upright Position: 0=Complete clearance: esophageal coating Impressions and Recommendations Clinical Observations: Current (pre-evaluation) Intake/Diet: Pre-Study Functional Oral Intake Scale (FOIS): 6- Total oral intake with no special preparation, but must avoid specific foods or liquid items [facility] ID: [id number] [facility] Results: Lip closure for intraoral bolus containment resulted in interlabial escape, without progression to the anterior lip. Tongue control during bolus hold could not be assessed due to logistical reasons not related to physiologic impairment. Bolus preparation and mastication resulted in slow, prolonged chewing/mashing but with complete re-collection. Bolus transport/lingual motion demonstrated delayed initiation of tongue motion. Oral residue was a trace, lining oral structures. Initiation of the pharyngeal swallow occurred when the bolus head was in the pyriform sinuses. Soft palate elevation resulted in no bolus between the soft palate and the pharyngeal wall. Laryngeal elevation was decreased, with partial superior movement of the thyroid cartilage/partial approximation of the arytenoids to the epiglottic petiole. Anterior hyoid excursion demonstrated partial anterior movement. Epiglottic movement resulted in complete inversion. Laryngeal vestibular closure was incomplete, with a narrow column of air/contrast noted within the laryngeal vestibule at the height of the swallow. Pharyngeal stripping wave was present and complete. Pharyngeal contraction could not be determined due to logistical reasons not related to physiologic impairment. Pharyngoesophageal segment opening was completely distended for complete duration with no obstruction of bolus flow. Tongue base retraction allowed a trace column of contrast or air between the retracted tongue base and the posterior pharyngeal wall. Pharyngeal residue was Oral Impairment Score: 5 (absence of score, component 2) Pharyngeal Impairment Score: 5 (absence of score, component 13) Esophageal Impairment Score: --- (absence of score, component 17) Laryngeal Penetration and Aspiration: Penetration was observed in today's study. Thin Contrast entered the airway, contacted the vocal folds, and was ejected from the airway. PLAN: Intake Recommendations: Post-Study Functional Oral Intake Scale (FOIS): 6- Total oral intake with no special preparation, but must avoid specific foods or liquid items a collection of residue within or on pharyngeal structures. Esophageal clearance in the upright position could not be assessed due to logistical reasons not related to physiologic impairment. SUMMARY: No aspiration was observed during the study. Penetration was observed with a Regular Solid that was removed with a subsequent swallow. He was also provided a 13mm Barium Pill. He had difficulty processing the pill on the oral phase, however subsequent bites of Puree Solid allowed the bill to go down into his esophagus with retention. There was retention of the pill in the lower esophagus. He was cued to take subsequent sips of Thin Liquid which allowed the pill to pass into the stomach. This incidental finding is non-diagnostic in the context of this study, but may warrant further examination with a full Barium Swallow or EGD to rule-out esophageal dysmotility, as deemed appropriate by his medical team. Given the results of today's study I recommend an unrestricted diet of Regular Solids and Thin Liquids. Given demonstration of mild oral impairment, will benefit from opting for solids that are easier to chew. Recommend oral medications be taken one at a time, whole, or crushed when possible, in a puree medium. Please feel free to contact our office with any further questions. Liquid Intake Recommendation: Thin Liquid Intake Strategies: Unrestricted Dietary Recommendations: Regular Medication Administration: Crushed with Puree Please contact the pharmacy regarding appropriate crushable or liquid drug formulations that are available whenever modified delivery is recommended. Compensatory Strategies Recommended: Sitting Upright (90 deg) Supervision during eating and or drinking: Intermittent Supervision Recommended Treatments: Oral Motor Exercises Base of Tongue Exercises Compens. Strategy Educat. Recommendation for Speech Therapy: Discharged with Instructions for Home Use Speech Therapy through [facility] Text Comment: It is important to note MBSS objective studies are snapshots in time and Patient function might vary with factors such as time of day or concomitant medical conditions. For this reason, the final treatment plan for this patient should rest with their medical care team. Additional recommendations should be considered with the totality of the Patient in mind. Thank for the opportunity to participate in the care of this patient. If you have any questions about the content of this report, please contact the [facility] at [facility]. Frequency/Duration: TBD Date Range for Service Requested: TBD Timeline to reassess: PRN Sports Recruiter Clinician/Clinical Fellow: No Supervisory Statement: N/A Speech Language Pathologist: Shawn Reis M.A., CCC-PRECIPITATOR SUPERVISOR
== END 2024-07-02 09:50 | disposition home or self-care (01) ==
LOC: HO.XRAY 09:49
DX: R13.10 Dysphagia, unspecified (principal)
CPT/HCPCS: 74230; 92611

== ENCOUNTER → 2024-07-02 10:30 | Outpatient (BNV) | payer MEDICARE, MEDICAID, SELFPAY | PROVIDERS: Visit Provider Radiology Diagnostic Radiology | DX: R13.10 Dysphagia, unspecified (principal) | CPT/HCPCS: 74230 ==

== ENCOUNTER 2024-07-08 08:48 | Outpatient (AMB) | payer MEDICARE, MEDICAID, SELFPAY ==
--- NOTE | 2024-07-08 08:50 | A.OFFPC_ITS ---
Vital Signs 07/08/24 08:51 Height 58 ft Weight 141 lb 2 oz BMI 0.2 BP 110/62 Blood Pressure Location Lt brachial Position Sitting Pulse 65 Pulse Source Pulse Oximeter Pulse Oximetry (%) 96 Oxygen Delivery Method Room Air Intake Visit Reasons: [facility] 06/04-07/02 Pneumonia Intake Note: Patient is here for hospital discharge follow up. Patient was discharged from [facility] on 07/02/24. Drier Feeder Required: No Care Aid: Present Accompanied by: Staff Allergies ammonia [AMMONIA] Allergy (Intermediate, Verified 07/08/24 08:51) SHORTNESS OF BREATH sodium hypochlorite solution [Sodium Hypochlorite] Allergy (Intermediate, Verified 07/08/24 08:51) SHORTNESS OF BREATH ( BLEACH ) Medication List - Last Reconciled 07/08/24 by Donna Morales PA-C acetaminophen ER (Tylenol 8 Hour) 650 mg PO Q6H bisacodyl 10 mg NC DAILY PRN carbidopa-levodopa 25-100 mg 1 tab PO QID chlorpromazine 50 mg PO Q6-8H clonazepam 0.5 mg PO DAILY clotrimazole 1% 1 appl topical BID 4 weeks divalproex (Depakote) 250 mg PO TID gabapentin 300 mg PO BID lidocaine 5% 1 patch topical DAILY PRN loperamide (Imodium A-D) 2 mg PO BID PRN miconazole nitrate 2% (Zeasorb AF) 1 appl topical BID omeprazole 40 mg PO BID polyethylene glycol 3350 (Miralax) 17 grams PO DAILY sucralfate 1 g PO BID tamsulosin 0.4 mg PO DAILY 90 days Tobacco use date assessed: 07/08/24 Fall risk assessment: No Falls in past year Last assessed Fall Risk: 07/08/24 Dental Screening Dental Screen Date: 01/25/24 HPI [facility] 06/04-07/02 Pneumonia HPI Details 73-year-old male with past medical histo ry of Parkinson's disease, seiz ure disorder, BPH, hypercholesterolemia, GERD, and behavioral problem last seen May 2024 coming in for hospital follow up.? In review of the notes, patient completed barium swallow 07/02/2024 which did not show evidence of aspiration and recommendations from speech communication were to continue with regular solids and when giving medications give them crushed in pureed medium when possible.? Also recommended a full barium swallow or EGD to rule out esophageal dysmotility. Patient was seen in [facility] 05/30/2024 was found to have pneumonia on chest x-ray and admitted for further evaluation. According to the patient he went for back pain and had x-ray done which was negative and returned back to the hospital for a swallow eval was transitioned to soft food diet and slowly transition back to solids and discharge to [facility]. He attended physical therapy and was tolerating a solid food diet while at rehab. Since discharge from rehab his ambulation has improved and is seen in critical access hospital ent in strength. He is still does continue to have slowed swallowing while swallowing pills but has been doing well with the pills being crushed or in some food medium such as applesauce. He is tolerating a solid food diet and does not cough while eating. [facility] Medical History Right carpal tunnel syndrome SARA (generalized anxiety disorder) COPD (chronic obstructive pulmonary disease) Tubular adenoma of colon Rib fractures GERD (gastroesophageal reflux disease) Mental and behavioral problem Hypercholesterolemia Intractable hiccups BPH (benign prostatic hyperplasia) Seizure disorder Parkinsons disease Surgical History Hx of colonoscopy Hx of hernia repair Hx of tonsillectomy History of carpal tunnel release History of cholecystectomy Family History Father Lung cancer Mother Brain cancer COPD (chronic obstructive pulmonary disease) Social History Housing: Assisted Living Facility Alcohol intake: current Alcohol intake frequency: does not drink Patient Tobacco Use Status: Never used Tobacco e-Cigarette/Vaping Use: Never Used Second Hand Smoke Exposure: No service: No Current occupational status: retired Cognitive needs: Yes (walker) Hearing needs: Yes (hearing aids in both ears) Vision needs: Yes (glasses) Questionnaire Thrive Questionnaire Date Thrive assessed: 01/25/24 SARA-7 AMB Questionnaire SARA-7 Date SARA - 7 assessed: 01/25/24 Source: Developed by Drs. Jeff Ngo, Jasmina Carlos, Kevin Prtat and colleagues, with an educational roge from [employer]. Review of Systems Const Denies body aches, Denies chills, Denies fever(s) and Denies poor appetite Eyes Reports no additional complaints ENT Reports dysphagia, Denies dizziness and Denies odynophagia Card Denies chest pain and Denies dyspnea Resp Denies cough and Denies dyspnea GI Denies abdominal pain, Reports dysphagia and Denies odynophagia Reports no additional complaints Musc Reports no additional complaints, Denies abnormal gait and Reports back pain Skin/Breast Reports system reviewed and no additional complaints, except as documented Neuro Denies abnormal gait and Denies dizziness Psych Reports no additional complaints Physical exam (Primary Care) Vital Signs: Last Vital Signs Pulse 65 07/08/24 08:51 BP 110/62 07/08/24 08:51 Pulse Ox 96 07/08/24 08:51 Oxygen Delivery Method Room Air 07/08/24 08:51 BMI result Body Mass Index 0.2 Tobacco/Smoking Status: Tobacco use Status Tobacco use date assessed 07/08/24 07/08/24 08:53 Patient Tobacco Use Status Never used Tobacco 07/08/24 08:53 e-Cigarette/Vaping Use Never Used 07/08/24 08:53 Thrive Assessment: Date of Thrive Assessment Date Thrive assessed 01/25/24 07/08/24 08:53 Const General: cooperative, healthy appearing, comfortable and no acute distress Orientation/consciousness: patient oriented x3 HENMT Head: Yes normocephalic Ears: hearing grossly normal bilaterally General nose exam: Normal external nose present Eyes General: appearance normal, both eyes and all related structures Conjunctivae: conjunctivae normal Neck Neck: Yes full ROM and Yes no lymphadenopathy Resp Effort & Inspection: normal respiratory effort Auscultation: clear to auscultation bilaterally, no crackles, no rales, no rhonchi and no wheezes Cardio Rate: regular rate Rhythm: regular rhythm Skin General skin exam: no rashes or lesions noted Neuro General: patient oriented x3 Gait exam (Neuro): Normal gait present Extrem General: Yes normal to inspection, Yes full ROM and No edema Psych Affect: normal affect Attitude: cooperative Insight: Good insight present (Psych) Judgement: Good judgement present (Psych) Assessment and Plan Assessment & Plan (1) Dysphagia: Code(s): R13.10 - Dysphagia, unspecified Plan: Patient does continue to have slowed swallowing and is doing well with pills being crushed or in applesauce. He denies any coughing while eating, fevers, cough, fatigue. Discussed with [facility] staff to continue monitoring his swallowing and if he has difficulty or is no longer tolerating solid diet we can consider an EGD and referral to Gastroenterology per speech therapy recommendation. Spoke with patient's nurse who sees him once daily and mentioned the sucralfate is difficult with q.i.d. dosing as the pills are very large and patient will not crush them himself. We will go to once daily dosing and monitor for symptoms and adjust dosing at that time. (2) Low back pain: Code(s): M54.50 - Low back pain, unspecified Plan: Patient does continue to have low back pain and has not use the lidocaine patches but does use Tylenol daily. He declines physical therapy or any additional medication at this time. Continue to monitor back pain. Plan This note was constructed using voice recognition software. While every effort has been made to ensure accuracy and vacuum tank tender, still areas may have been included sometimes these areas may affect the content or meeting of the given symptoms. Total time spent caring for the patient today was 30 minutes. This includes time spent before the visit reviewing the chart, time spent during the visit, and time spent after the visit and documentation. Medications: Changed From sucralfate 1 g PO QID 180 tabs 3RF To sucralfate 1 g PO ONCE 30 tabs 3RF Coding Level of Care Code Est Pt Level 4 (60418) Diagnoses Dysphagia R13.10 Low back pain M54.50
[2024-07-08 08:51] VITALS: BP 110/62; PULSE 65; O2SAT 96
== END 2024-07-08 09:47 | disposition home or self-care (01) ==
DX: R13.10 Dysphagia, unspecified (principal); M54.50 Low back pain, unspecified

== ENCOUNTER → 2024-07-08 08:48 | Outpatient (BNVA) | payer MEDICARE, MEDICAID, SELFPAY | DX: R13.10 Dysphagia, unspecified (principal); M54.50 Low back pain, unspecified | CPT/HCPCS: 99212 ==

== ENCOUNTER 2024-08-27 10:06 | Outpatient (AMB) | payer MEDICARE, MEDICAID, SELFPAY ==
[2024-08-27 10:09] VITALS: BP 92/58; PULSE 61; O2SAT 98; BMI 21.7
--- NOTE | 2024-08-27 10:09 | MHC.PC.OV ---
Vital Signs 08/27/24 10:09 Height 5 ft 8 in Weight 142 lb 10.225 oz BMI 21.7 BP 92/58 L Blood Pressure Location Rt brachial Position Sitting Pulse 61 Pulse Source Pulse Oximeter Pulse Oximetry (%) 98 Oxygen Delivery Method Room Air Intake Visit Reasons: f/u dysphagia Intake Note: Patient is here to follow up on dysphagia Lure Maker Required: No Allergies ammonia [AMMONIA] Allergy (Intermediate, Verified 08/27/24 10:17) SHORTNESS OF BREATH sodium hypochlorite solution [Sodium Hypochlorite] Allergy (Intermediate, Verified 08/27/24 10:17) SHORTNESS OF BREATH ( BLEACH ) Medication List - Last Reconciled 08/27/24 by Donna Morales PA-C acetaminophen ER (Tylenol 8 Hour) 650 mg PO Q6H bisacodyl 10 mg [place] DAILY PRN carbidopa-levodopa 25-100 mg 1 tab PO QID chlorpromazine 50 mg PO Q6-8H clonazepam 0.5 mg PO DAILY clotrimazole 1% 1 appl topical BID 4 weeks divalproex (Depakote) 500 mg PO BID gabapentin 300 mg PO BID lidocaine 5% 1 patch topical DAILY PRN loperamide (Imodium A-D) 2 mg PO BID PRN miconazole nitrate 2% (Zeasorb AF) 1 appl topical BID omeprazole 40 mg PO BID polyethylene glycol 3350 (Miralax) 17 grams PO DAILY sucralfate 1 g PO ONCE tamsulosin 0.4 mg PO DAILY 90 days Tobacco use date assessed: 07/08/24 Fall risk assessment: No Falls in past year Last assessed Fall Risk: 08/27/24 Dental Screening Dental Screen Date: 01/25/24 HPI f/u dysphagia HPI Details 73-year-old male with past medical history of Parkinson's disease, seizure disorder, BPH, hypercholesterolemia, GERD and behavioral problem last seen June 2024 coming in for follow up on dysphagia. Patient was seen by [facility] speech advised to use. Solids for pills and unrestricted diet of regular solids and thin liquids. Patient presents today with family member. She mentions he has been doing well with swallowing the pills with the applesauce. The [facility] have been reporting new onset of fecal incontinence. He is having multiple episodes of fecal incontinence a week. He does wear adult diapers however this is new for him. Family member unsure if the stool is formed or loose or how many bowel movements he is having per day however she was told there was no blood or dark stools. Patient unable to answer if he feels the urge is unable to make it to the bathroom on time or if he is unaware that he is having bowel movements. [facility] Medical History Right carpal tunnel syndrome SARA (generalized anxiety disorder) COPD (chronic obstructive pulmonary disease) Tubular adenoma of colon Rib fractures GERD (gastroesophageal reflux disease) Mental and behavioral problem Hypercholesterolemia Intractable hiccups BPH (benign prostatic hyperplasia) Seizure disorder Parkinsons disease Surgical History Hx of colonoscopy Hx of hernia repair Hx of tonsillectomy History of carpal tunnel release History of cholecystectomy Family History Father Lung cancer Mother Brain cancer COPD (chronic obstructive pulmonary disease) Social History Housing: Assisted Living Facility Alcohol intake: current Alcohol intake frequency: does not drink Patient Tobacco Use Status: Never used Tobacco e-Cigarette/Vaping Use: Never Used Second Hand Smoke Exposure: No service: No Current occupational status: retired Cognitive needs: Yes (walker) Hearing needs: Yes (hearing aids in both ears) Vision needs: Yes (glasses) Questionnaire Thrive Questionnaire Date Thrive assessed: 01/25/24 I am a: Patient What is your living situation today?: I have a steady place to live Within the past 12 months, did the food you bought not last and you didn't have the money to get more?: Never true Within the past 12 months, did you worry whether your food would run out before you got money to buy more?: Never true Do you have trouble paying for medicines?: No Do you have trouble getting transportation to medical appointments?: No Do you have trouble paying your heating and electricity bill?: No Do you have trouble taking care of your child, family member or friend?: No Do you have trouble with day-to-day activities such as bathing, preparing meals, shopping, managing finances, etc.?: No Are you currently unemployed and looking for a job?: No Are you interested in more education?: No Please select the resources that you would like help with: None Currently or been in a relationship where the following occur: No concerns reported THRIVE Score: 0 AUDIT C Alcohol Use Questionnaire (AUDIT-C) 1. How often do you have a drink containing alcohol?: Never 3. How often do you have six or more drinks on one occasion?: Never Total Score: 0 Score Reviewed/Action Taken: No SARA-7 AMB Questionnaire SARA-7 Date SARA - 7 assessed: 01/25/24 Source: Developed by Drs. Jeff Ngo, Jasmina Carlos, Kevin Pratt and colleagues, with an educational roge from [employer]. Review of Systems Const Details: Limited review of systems due to patient not wanting to answer questions Denies body aches, Denies chills and Denies fever(s) ENT Reports Normal hearing present Card Denies chest pain and Denies dyspnea Resp Denies dyspnea GI Details: Reported rectal incontinence by family member Musc Reports back pain Skin/Breast Reports system reviewed and no additional complaints, except as documented Neuro Reports Normal hearing present Physical exam (Primary Care) Vital Signs: Last Vital Signs Pulse 61 08/27/24 10:09 BP 92/58 L 08/27/24 10:09 Pulse Ox 98 08/27/24 10:09 Oxygen Delivery Method Room Air 08/27/24 10:09 BMI result Body Mass Index 21.7 Tobacco/Smoking Status: Tobacco use Status Tobacco use date assessed 07/08/24 08/27/24 10:11 Patient Tobacco Use Status Never used Tobacco 08/27/24 10:11 e-Cigarette/Vaping Use Never Used 08/27/24 10:11 Thrive Assessment: Date of Thrive Assessment Date Thrive assessed 01/25/24 08/27/24 10:11 Currently or been in a relationship where the following occur: No concerns reported Const General: cooperative, healthy appearing, comfortable and no acute distress Orientation/consciousness: patient oriented x3 HENMT Head: Yes normocephalic Ears: hearing grossly normal bilaterally General nose exam: Normal external nose present Eyes General: appearance normal, both eyes and all related structures Conjunctivae: conjunctivae normal Neck Neck: Yes full ROM and Yes no lymphadenopathy Resp Effort & Inspection: normal respiratory effort Auscultation: clear to auscultation bilaterally, no crackles, no rales, no rhonchi and no wheezes Cardio Rate: regular rate Rhythm: regular rhythm Skin General skin exam: no rashes or lesions noted Neuro General: patient oriented x3 Cranial nerves: Yes Normal hearing present Gait exam (Neuro): Normal gait present Extrem General: Yes normal to inspection, Yes full ROM and No edema Psych Affect: normal affect Attitude: cooperative Insight: Good insight present (Psych) Judgement: Good judgement present (Psych) Coding Level of Care Code Est Pt Level 3 (83070) Diagnoses Urinary incontinence R32 Dysphagia R13.10 Fecal incontinence R15.9 Assessment & Plan Assessment & Plan (1) Urinary incontinence: Code(s): R32 - Unspecified urinary incontinence Category: Medical Plan: Patient has chronic urinary incontinence continue to use briefs and continue to follow with Urology. (2) Dysphagia: Code(s): R13.10 - Dysphagia, unspecified Category: Medical Plan: Patient has been doing well with using the soft medium to swallow pills. He has been using applesauce which may be contributing to the loose stools patient may also use putting, yogurt, jello as a medium to swallow pills. Continue with current recommendations from speech therapist. (3) Fecal incontinence: Code(s): R15.9 - Full incontinence of feces Category: Medical Plan: New onset fecal incontinence unclear of the nature of the incontinence and whether or not it is diarrhea or loose stools and how many episodes per day. Patient is a poor historian and can not report if he is having difficulty holding in the stool or inability to feel the stool passing. Recommend adding fiber supplement to bulk the stools and we will reach out to the nurses at the [facility] for further information. Once records are obtained from the [facility] we can re-evaluate. Plan This note was constructed using voice recognition software. While every effort has been made to ensure accuracy and engineering clerk, still areas may have been included sometimes these areas may affect the content or meeting of the given symptoms. Total time spent caring for the patient today was 30 minutes. This includes time spent before the visit reviewing the chart, time spent during the visit, and time spent after the visit and documentation.
== END 2024-08-27 11:02 | disposition home or self-care (01) ==
LOC: HO.HMCH 10:07
DX: R32 Unspecified urinary incontinence (principal); R13.10 Dysphagia, unspecified; R15.9 Full incontinence of feces

== ENCOUNTER → 2024-08-27 10:06 | Outpatient (BNVA) | payer MEDICARE, MEDICAID, SELFPAY | DX: R32 Unspecified urinary incontinence (principal); R13.10 Dysphagia, unspecified; R15.9 Full incontinence of feces | CPT/HCPCS: 99212 ==

== ENCOUNTER 2024-08-29 11:57 | Outpatient (AMB) | payer MEDICARE, MEDICAID, SELFPAY ==
--- NOTE | 2024-08-29 12:22 | MHC.OFFWIV ---
Intake Vital Signs 08/29/24 12:26 Height 5 ft 8 in Weight 139 lb 6 oz BMI 21.2 BP 117/62 Blood Pressure Location Rt brachial Position Sitting Respiration 12 Pulse 48 L Pulse Source Pulse Oximeter Pulse Oximetry (%) 98 Oxygen Delivery Method Room Air Intake Visit Reasons: rash on neck and shoulder Intake Note: Patient complaining of right side rash on neck and shoulder Patient Tobacco Use Status: Never used Tobacco Allergies ammonia [AMMONIA] Allergy (Intermediate, Verified 08/29/24 12:42) SHORTNESS OF BREATH sodium hypochlorite solution [Sodium Hypochlorite] Allergy (Intermediate, Verified 08/29/24 12:42) SHORTNESS OF BREATH ( BLEACH ) Medication List - Last Reconciled 08/29/24 by JR Short-RIVERA acetaminophen ER (Tylenol 8 Hour) 650 mg PO Q6H bisacodyl 10 mg [place] DAILY PRN carbidopa-levodopa 25-100 mg 1 tab PO QID chlorpromazine 50 mg PO Q6-8H clonazepam 0.5 mg PO DAILY clotrimazole 1% 1 appl topical BID 4 weeks divalproex (Depakote) 500 mg PO BID gabapentin 300 mg PO BID lidocaine 5% 1 patch topical DAILY PRN loperamide (Imodium A-D) 2 mg PO BID PRN miconazole nitrate 2% (Zeasorb AF) 1 appl topical BID omeprazole 40 mg PO BID polyethylene glycol 3350 (Miralax) 17 grams PO DAILY sucralfate 1 g PO ONCE tamsulosin 0.4 mg PO DAILY 90 days Do you need a note to return to daycare/school/sports/work: No HPI HPI Comments History of Present Illness Details 73-year-old male who lives at the [facility] here today accompanied by an scale assembly set up worker for complaints of a painful rash on his right shoulder. Started over the last few days. The rash extends up his neck on the right side. It is painful to touch. No at home treatments have been rendered. Exam Awake alert oriented Posterior right shoulder extending upright side of neck is a vesicular rash on an erythematous base with some vesicles and blistering consistent with a shingles rash Plan Patient was already maintained on gabapentin. He should continue to take this. We will prescribe a topical lidocaine spray to help with pain. Can use this as needed 3 times per day. We will also prescribe valacyclovir TID x7 days. Education provided along with reasons to follow up. [facility] Medical History Right carpal tunnel syndrome SARA (generalized anxiety disorder) COPD (chronic obstructive pulmonary disease) Tubular adenoma of colon Rib fractures GERD (gastroesophageal reflux disease) Mental and behavioral problem Hypercholesterolemia Intractable hiccups BPH (benign prostatic hyperplasia) Seizure disorder Parkinsons disease Surgical History Hx of colonoscopy Hx of hernia repair Hx of tonsillectomy History of carpal tunnel release History of cholecystectomy Family History Father Lung cancer Mother Brain cancer COPD (chronic obstructive pulmonary disease) Social History Housing: Assisted Living Facility Alcohol intake: current Alcohol intake frequency: does not drink Patient Tobacco Use Status: Never used Tobacco e-Cigarette/Vaping Use: Never Used Second Hand Smoke Exposure: No service: No Current occupational status: retired Cognitive needs: Yes (walker) Hearing needs: Yes (hearing aids in both ears) Vision needs: Yes (glasses) Physical Exam Vital Signs: Last Vital Signs Pulse 48 L 08/29/24 12:26 Resp 12 08/29/24 12:26 BP 117/62 08/29/24 12:26 Pulse Ox 98 08/29/24 12:26 Oxygen Delivery Method Room Air 08/29/24 12:26 BMI result Body Mass Index 21.2 Assessment & Plan Assessment & Plan (1) Shingles: Code(s): B02.9 - Zoster without complications Qualifiers: Herpes zoster complications: without complications Qualified Code(s): B02.9 - Zoster without complications Plan: . Medications: New valacyclovir 1,000 mg PO Q8H 21 tabs 0RF 7 days lidocaine 4% (Aspercreme (lidocaine)) 1 spray topical TID PRN 113 grams 0RF PAIN TO SHINGLES RASH Patient Instructions: Is shingles contagious? Yes and no. It is NOT possible to catch shingles from someone who has the rash. But it is possible to catch the virus and then get sick with chickenpox. Shingles and chickenpox are caused by the same virus. You probably will NOT catch the virus (or get chickenpox) if you: -Had chickenpox or shingles in the past -Had the chickenpox vaccine -Were born before 1979 (most people born before 1979 have had chickenpox even if they dont remember it) If you have never had chickenpox or the chickenpox vaccine, be careful around anyone with shingles. Do not touch their rash. If you do, you could get sick with chickenpox. In rare cases, people can even get chickenpox from just being near someone with shingles. This is most likely in people who cannot fight infections well. Already on Gabapentin, be sure to continue If insurance does not cover the topical lidocaine spray, please purchase over the counter. FU with PCP as scheduled or sooner if no improvement. Coding Level of Care Code Est Pt Level 3 (02809) Diagnoses Herpes zoster without complication B02.9 Herpes zoster complications: without complications
[2024-08-29 12:26] VITALS: BP 117/62; PULSE 48; RESP 12; O2SAT 98; BMI 21.2
== END 2024-08-29 13:03 | disposition home or self-care (01) ==
PROVIDERS: Visit Provider Nurse Practitioner Family
DX: B02.9 Zoster without complications (principal)

== ENCOUNTER → 2024-08-29 11:57 | Outpatient (BNVA) | payer MEDICARE, MEDICAID, SELFPAY | DX: B02.9 Zoster without complications (principal) | CPT/HCPCS: 99212 ==

== ENCOUNTER 2024-09-23 08:52 | Outpatient (AMB) | payer MEDICARE, MEDICAID, SELFPAY ==
[2024-09-23 08:53] VITALS: BP 98/58; PULSE 57; O2SAT 95
--- NOTE | 2024-09-23 08:53 | A.OFFPC_ITS ---
Vital Signs 09/23/24 08:53 Height 5 ft 8 in BMI Reason not done Patient refused/unable BP 98/58 L Blood Pressure Location Lt brachial Position Sitting Pulse 57 Pulse Source Pulse Oximeter Pulse Oximetry (%) 95 Oxygen Delivery Method Room Air Intake Visit Reasons: follow up shingles Allergies ammonia [AMMONIA] Allergy (Intermediate, Verified 08/29/24 12:42) SHORTNESS OF BREATH sodium hypochlorite solution [Sodium Hypochlorite] Allergy (Intermediate, Verified 08/29/24 12:42) SHORTNESS OF BREATH ( BLEACH ) Medication List - Last Reconciled 09/23/24 by Donna Morales PA-C acetaminophen ER (Tylenol 8 Hour) 650 mg PO Q6H bisacodyl 10 mg AK DAILY PRN carbidopa-levodopa 25-100 mg 1 tab PO QID chlorpromazine 50 mg PO Q6-8H clonazepam 0.5 mg PO DAILY clotrimazole 1% 1 appl topical BID 4 weeks divalproex (Depakote) 500 mg PO BID gabapentin 300 mg PO BID lidocaine 5% 1 patch topical DAILY PRN lidocaine 4% (Aspercreme (lidocaine)) 1 spray topical TID PRN loperamide (Imodium A-D) 2 mg PO BID PRN miconazole nitrate 2% (Zeasorb AF) 1 appl topical BID omeprazole 40 mg PO BID polyethylene glycol 3350 (Miralax) 17 grams PO DAILY sucralfate 1 g PO ONCE tamsulosin 0.4 mg PO DAILY 90 days valacyclovir 1,000 mg PO Q8H 7 days Tobacco use date assessed: 07/08/24 Fall risk assessment: No Falls in past year Last assessed Fall Risk: 09/23/24 Dental Screening Dental Screen Date: 01/25/24 HPI follow up shingles HPI Details 74-year-old male with past medical histo ry of Parkinson's disease, seizure disorder, BPH, hypercholesterolemia, GERD and behavioral problem last seen June 2024 coming in for follow up on dysphagia. In review of the notes patient was seen in [facility] 09/08/2024 after diagnosis shingles from urgent care and given valacyclovir. Patient presents to [facility] for ongoing rash no active zoster lesions were observed and advised to continue on topical pain medication. Patient presents today with a family member who states due to increased pain from the shingles he is primarily wheelchair-bound for ambulation. She is unsure about his bowel movements but did have reports from the [facility] about loose stools and incontinence. He is still complaining of right-sided pain in the back and neck area around the shingles rash. [facility] Medical History Right carpal tunnel syndrome SARA (generalized anxiety disorder) COPD (chronic obstructive pulmonary disease) Tubular adenoma of colon Rib fractures GERD (gastroesophageal reflux disease) Mental and behavioral problem Hypercholesterolemia Intractable hiccups BPH (benign prostatic hyperplasia) Seizure disorder Parkinsons disease Surgical History Hx of colonoscopy Hx of hernia repair Hx of tonsillectomy History of carpal tunnel release History of cholecystectomy Family History Father Lung cancer Mother Brain cancer COPD (chronic obstructive pulmonary disease) Social History Housing: Assisted Living Facility Alcohol intake: current Alcohol intake frequency: does not drink Patient Tobacco Use Status: Never used Tobacco e-Cigarette/Vaping Use: Never Used Second Hand Smoke Exposure: No service: No Current occupational status: retired Cognitive needs: Yes (walker) Hearing needs: Yes (hearing aids in both ears) Vision needs: Yes (glasses) Questionnaire Thrive Questionnaire Date Thrive assessed: 01/25/24 SARA-7 AMB Questionnaire SARA-7 Date SARA - 7 assessed: 01/25/24 Source: Developed by Drs. Jeff Ngo, Jasmina Carlos, Kevin Pratt and colleagues, with an educational roge from [employer]. Review of Systems Const Denies body aches, Denies chills and Denies fever(s) Eyes Reports no additional complaints ENT Reports dysphagia Card Denies chest pain, Denies diaphoresis, Denies syncope, Denies irregular heart rhythm, Denies lightheadedness and Denies dyspnea Resp Denies dyspnea GI Denies abdominal pain, Denies constipation, Reports dysphagia, Reports fecal incontinence (Occasionally), Denies diarrhea, Reports loose stools, Denies nausea and Denies vomiting Reports no additional complaints Skin/Breast Reports as per HPI Neuro Denies syncope Physical exam (Primary Care) Vital Signs: Last Vital Signs Pulse 57 09/23/24 08:53 BP 98/58 L 09/23/24 08:53 Pulse Ox 95 09/23/24 08:53 Oxygen Delivery Method Room Air 09/23/24 08:53 Tobacco/Smoking Status: Tobacco use Status Tobacco use date assessed 07/08/24 09/23/24 08:58 Patient Tobacco Use Status Never used Tobacco 09/23/24 08:58 e-Cigarette/Vaping Use Never Used 09/23/24 08:58 Thrive Assessment: Date of Thrive Assessment Date Thrive assessed 01/25/24 09/23/24 08:58 Const General: cooperative, healthy appearing, comfortable and no acute distress Orientation/consciousness: patient oriented x3 HENMT Head: Yes normocephalic Ears: hearing grossly normal bilaterally General nose exam: Normal external nose present Eyes General: appearance normal, both eyes and all related structures Conjunctivae: conjunctivae normal Neck Neck: Yes full ROM and Yes no lymphadenopathy Resp Effort & Inspection: normal respiratory effort Auscultation: clear to auscultation bilaterally, no crackles, no rales, no rhonchi and no wheezes Cardio Rate: regular rate Rhythm: regular rhythm Back/Spine/Pelvis Other: Patient is declining back exam due to pain. No visualized lesions outside of his sweatshirt Skin General skin exam: no rashes or lesions noted Neuro General: patient oriented x3 Gait exam (Neuro): Normal gait present Extrem General: Yes normal to inspection, Yes full ROM and No edema Psych Affect: normal affect Attitude: cooperative Insight: Good insight present (Psych) Judgement: Good judgement present (Psych) Coding Level of Care Code Est Pt Level 4 (60398) Diagnoses Herpes zoster without complication B02.9 Herpes zoster complications: without complications Fecal incontinence R15.9 Assessment & Plan Assessment & Plan (1) Shingles: Code(s): B02.9 - Zoster without complications Category: Medical Qualifiers: Herpes zoster complications: without complications Qualified Code(s): B02.9 - Zoster without complications Plan: Patient is declining exam today discussed with patient that we will be unable to check if there is any active infection and he agrees to continue to monitor her symptoms at this time and continues to declining exam due to pain. Patient is using lidocaine spray unclear of how often he is using the spray but states it does not help the pain. He is unsure if he is currently taking gabapentin as it is on his active medication list. We will reach out to the [facility] and patient is not taking this medication we will prescribe gabapentin 300 mg b.i.d. and if he is on gabapentin we can consider a dose increase for a short period of time to shingles related pain. (2) Fecal incontinence: Code(s): R15.9 - Full incontinence of feces Category: Medical Plan: Nurse staff to with the [facility] who states he will have occasional incontinence primarily after lunch but we will also have days without a bowel movement. No foul order and does have solid pieces of stool primarily loose stool. Given his mobility status likely incontinence is related to functional incontinence and inability to get to the bathroom in time especially now given limited mobility and patient is ambulating primarily with a wheelchair. We will continue to monitor his symptoms and requests nursing notes from the [facility] Plan This note was constructed using voice recognition software. While every effort has been made to ensure accuracy and sizing sponger, still areas may have been included sometimes these areas may affect the content or meeting of the given symptoms. Total time spent caring for the patient today was 20 minutes. This includes time spent before the visit reviewing the chart, time spent during the visit, and time spent after the visit and documentation.
== END 2024-09-23 09:58 | disposition home or self-care (01) ==
PROVIDERS: PCP Internal Medicine
DX: B02.9 Zoster without complications (principal); R15.9 Full incontinence of feces

== ENCOUNTER → 2024-09-23 08:52 | Outpatient (BNVA) | payer MEDICARE, MEDICAID, SELFPAY | PROVIDERS: PCP Internal Medicine | DX: B02.9 Zoster without complications (principal); R15.9 Full incontinence of feces | CPT/HCPCS: 99212 ==

== ENCOUNTER 2024-10-06 10:21 | Outpatient (AMB) | payer MEDICARE, MEDICAID, SELFPAY ==
--- OUTSIDE RECORDS SUMMARY | 2024-10-06 10:26 | XMS_ITS | Clinical Summary ---
Author Organization Unknown Care Team Providers Care Orthopedic Radiologic Technologist Name Role Phone PO INTERSTATE, JULIAENRENÉ Unavailable Unavaila loreto PRESCOTT RN, ROBERT Unavailable Unavailable JULIANO PT, ALFREDO Unavailable Unavailable [place] OT, LISBETH Unavailable Unavailable Payers Payer Name Policy Type Policy Number Effective Date Expira tion Date MEDICARE.NGS.PDGM [id number] Problems Condition Name Condition Details Condition Category Status Onset Date Resolution Date Last Treatment Date Treating Clinician Comments PARKINSON'S DISEASE Active 2021-10 00:00: 00 BENIGN PROSTATIC HYPERPLASIA WITH LOWER URINARY TRACT SYMP Active 10-22 00:00: 00 RETENTION OF URINE, UNSPECIFIED Active 10-22 00:00: 00 PEPTIC ULC, SITE UNSP, UNSP AC OR CHR, W/O HEMOR OR PERF Active 10-22 00:00: 00 ANXIETY DISORDER, UNSPECIFIED Active 10-22 00:00: 00 GASTRO-ESOPH AGEAL REFLUX DISEASE WITHOUT ESOPHAGITIS Active 10-22 00:00: 00 UNSPECIFIED CONVULSIONS Active 10-22 00:00: 00 HICCOUGH Active 10-22 00:00: 00 DISORIENTATI ON, UNSPECIFIED Active 10-22 00:00: 00 HYPERGLYCEMI A, UNSPECIFIED Active 10-22 00:00: 00 PERSONAL HISTORY OF URINARY (TRACT) INFECTIONS Active 10-22 00:00: 00 HISTORY OF FALLING Active 10-22 00:00: 00 Allergies, Adverse Reactions, Alerts Allergy Name Allergy Type Status Severity Reaction(s) Onset Date Inactive Date Treating Clinician Comments NO KNOWN ALLERGIES Propensity to adverse reactions Active 2021-10 13:09: 43 Medications Ordered Medication Name Filled Medication Name Start Date Stop Date Current Medication? Ordering Clinician Indication Dosage Frequency Signature (SIG) Comments Components omeprazole 40 mg capsule,del ayed release 2021-10 2-14 00:00: 00 Yes [id number] GERD 1 capsule 2 TIMES DAILY 1 capsule 2 TIMES DAILY (route: oral) Med Classific ation: Gastroint estinal Therapy Agents tamsulosin 0.4 mg capsule 2021-10 00:00: 00 Yes [id number] BPH Per instruc tions EVERY DAY Per instructio ns EVERY DAY (route: oral) Med Classific ation: Genitouri nary Therapy gabapentin 300 mg capsule 2021-10 00:00: 00 Yes [id number] PARKINSONS Per instruc tions TWICE A DAY Per instructio ns TWICE A DAY (route: oral) Med Classific ation: Central Nervous System Agents sucralfate 1 gram tablet 2021-10 00:00: 00 Yes [id number] GERD Per instruc tions TWICE DAILY Per instructio ns TWICE DAILY (route: oral) Med Classific ation: Gastroint estinal Therapy Agents carbidopa 25 mg-levodopa 100 mg tablet 2021-10 00:00: 00 Yes [id number] PARKINSONS Per instruc tions 4 TIMES A DAY Per instructio ns 4 TIMES A DAY (route: oral) Med Classific ation: Central Nervous System Agents clonazepam 0.5 mg tablet 2021-10 00:00: 00 Yes [id number] ANXIETY 1 tablet DAILY 1 tablet DAILY (route: oral) Med Classific ation: Central Nervous System Agents divalproex 500 mg tablet,marcial yed release 2021-10 00:00: 00 Yes [id number] SEIZURES 1 tablet 2 TIMES DAILY 1 tablet 2 TIMES DAILY (route: oral) Med Classific ation: Central Nervous System Agents Vital Signs Vital Name Observation Time Observation Value Commen ts Temperature 2022-12-11 14:56:00.000 97.8 [degF] Temperature 2022-12-07 11:23:00.000 97.5 [degF] Temperature 2022-11-30 12:40:00.000 97.6 [degF] Temperature 2022-11-27 14:04:00.000 97.8 [degF] Temperature 2022-11-13 10:53:00.000 98.2 [degF] Temperature 2022-11-13 10:51:00.000 97.7 [degF] Temperature 2022-11-09 10:19:00.000 97.5 [degF] Temperature 2022-11-01 15:08:00.000 98.4 [degF] Temperature 2022-10-31 09:47:00.000 99 [degF] Temperature 2022-10-30 10:28:00.000 98.4 [degF] Temperature 2022-10-27 09:29:00.000 98.6 [degF] Temperature 2022-10-19 10:10:00.000 98.8 [degF] Temperature 2022-10-18 11:06:00.000 97.5 [degF] Temperature 2022-10-17 11:40:00.000 97.7 [degF] Temperature 2022-10-14 10:09:00.000 98 [degF] BMI (%) 2022-10-14 10:05:48.000 19 kg/m2 Height 2022-10-14 10:05:28.000 69 [in_us] Pulse 2022-12-11 14:56:00.000 66 /min Pulse 2022-12-07 11:23:00.000 66 /min Pulse 2022-11-27 14:04:00.000 65 /min Pulse 2022-11-13 10:53:00.000 66 /min Pulse 2022-11-13 10:51:00.000 66 /min Pulse 2022-11-09 10:19:00.000 67 /min Pulse 2022-11-01 15:08:00.000 72 /min Pulse 2022-10-31 09:47:00.000 74 /min Pulse 2022-10-30 10:28:00.000 73 /min Pulse 2022-10-27 09:29:00.000 78 /min Pulse 2022-10-25 10:21:00.000 63 /min Pulse 2022-10-19 10:10:00.000 64 /min Pulse 2022-10-18 11:06:00.000 88 /min Pulse 2022-10-17 11:40:00.000 94 /min Pulse 2022-10-14 10:09:00.000 76 /min O2 Saturation (%) 2022-12-11 14:56:00.000 96 % O2 Saturation (%) 2022-12-07 11:24:00.000 97 % O2 Saturation (%) 2022-11-30 12:40:00.000 97 % O2 Saturation (%) 2022-11-13 10:54:00.000 96 % O2 Saturation (%) 2022-11-13 10:51:00.000 94 % O2 Saturation (%) 2022-11-01 15:08:00.000 95 % O2 Saturation (%) 2022-10-31 09:47:00.000 94 % O2 Saturation (%) 2022-10-30 10:28:00.000 96 % O2 Saturation (%) 2022-10-27 09:29:00.000 96 % O2 Saturation (%) 2022-10-25 10:21:00.000 95 % O2 Saturation (%) 2022-10-19 10:10:00.000 96 % O2 Saturation (%) 2022-10-18 11:06:00.000 98 % O2 Saturation (%) 2022-10-17 11:40:00.000 95 % Respirations 2022-12-11 14:56:00.000 16 /min Respirations 2022-12-07 11:23:00.000 16 /min Respirations 2022-11-30 12:40:00.000 18 /min Respirations 2022-11-27 14:04:00.000 18 /min Respirations 2022-11-13 10:53:00.000 16 /min Respirations 2022-11-13 10:51:00.000 16 /min Respirations 2022-11-09 10:19:00.000 16 /min Respirations 2022-11-01 15:08:00.000 18 /min Respirations 2022-10-31 09:47:00.000 18 /min Respirations 2022-10-30 10:28:00.000 16 /min Respirations 2022-10-27 09:29:00.000 18 /min Respirations 2022-10-25 10:21:00.000 16 /min Respirations 2022-10-19 10:10:00.000 18 /min Respirations 2022-10-18 11:06:00.000 16 /min Respirations 2022-10-17 11:40:00.000 18 /min Respirations 2022-10-14 10:09:00.000 18 /min Weight (lbs) 2022-10-14 10:05:48.000 130 [lb_av] Systolic Blood Pressure 2022-12-11 14:56:00.000 100 mm [Hg] Systolic Blood Pressure 2022-12-07 11:23:00.000 110 mm [Hg] Systolic Blood Pressure 2022-11-30 12:40:00.000 100 mm [Hg] Systolic Blood Pressure 2022-11-27 14:04:00.000 120 mm [Hg] Systolic Blood Pressure 2022-11-13 10:53:00.000 103 mm [Hg] Systolic Blood Pressure 2022-11-13 10:51:00.000 102 mm [Hg] Systolic Blood Pressure 2022-11-09 10:19:00.000 100 mm [Hg] Systolic Blood Pressure 2022-11-01 15:08:00.000 100 mm [Hg] Systolic Blood Pressure 2022-10-31 09:47:00.000 110 mm [Hg] Systolic Blood Pressure 2022-10-30 10:28:00.000 110 mm [Hg] Systolic Blood Pressure 2022-10-27 09:29:00.000 104 mm [Hg] Systolic Blood Pressure 2022-10-25 10:21:00.000 107 mm [Hg] Systolic Blood Pressure 2022-10-19 10:10:00.000 100 mm [Hg] Systolic Blood Pressure 2022-10-18 11:06:00.000 120 mm [Hg] Systolic Blood Pressure 2022-10-14 10:09:00.000 108 mm [Hg] Diastolic Blood Pressure 2022-12-11 14:56:00.000 60 mm [Hg] Diastolic Blood Pressure 2022-12-07 11:23:00.000 70 mm [Hg] Diastolic Blood Pressure 2022-11-30 12:40:00.000 60 mm [Hg] Diastolic Blood Pressure 2022-11-27 14:04:00.000 80 mm [Hg] Diastolic Blood Pressure 2022-11-13 10:53:00.000 60 mm [Hg] Diastolic Blood Pressure 2022-11-13 10:51:00.000 60 mm [Hg] Diastolic Blood Pressure 2022-11-09 10:19:00.000 72 mm [Hg] Diastolic Blood Pressure 2022-11-01 15:08:00.000 64 mm [Hg] Diastolic Blood Pressure 2022-10-31 09:47:00.000 65 mm [Hg] Diastolic Blood Pressure 2022-10-30 10:28:00.000 70 mm [Hg] Diastolic Blood Pressure 2022-10-27 09:29:00.000 64 mm [Hg] Diastolic Blood Pressure 2022-10-25 10:21:00.000 70 mm [Hg] Diastolic Blood Pressure 2022-10-19 10:10:00.000 60 mm [Hg] Diastolic Blood Pressure 2022-10-18 11:06:00.000 60 mm [Hg] Diastolic Blood Pressure 2022-10-14 10:09:00.000 60 mm [Hg] Plan of Treatment Planned Activity Planned Date Details Comments Future Scheduled Test SKILLED NU RSE TO ASSESS, EVALUATE, AND DEVELOP AN INDIVIDUALIZED PLAN OF CARE. AGENCY MAY ACCEPT ORDERS FROM CONSULTING PHYSICIANS SN TO OBSERVE/ASSESS RISK FOR FALLS AND INSTRUCT IN FALL PREVENTION, HOME SAFETY, MEDICATION MANAGEMENT, INFECTION PREVENTION, AND NUTRITION MANAGEMENT. SN MAY PERFORM O2 SATURATION LEVEL ON ADMISSION AND PRN FOR RESP STATUS CHANGES TO ASSESS PATIENT, WITH NOTIFICATION TO THE PHYSICIAN IF SATURATION IS 90% IN THE ABSENCE OF MORE SPECIFIC PARAMETERS FROM THE PHYSICIAN. AGENCY MAY PERFORM A RESUMPTION OF CARE VISIT FOLLOWING ANY HOSPITAL ADMISSION. SKILLED NURSE TO ASSESS/EVALUATE CO-MORBID CONDITIONS AND ANY NEW CONDITIONS THAT PRESENT THEMSELVES DURING THIS EPISODE TO IDENTIFY CHANGES AND INTERVENE TO MINIMIZE COMPLICATIONS. [code = SKILLED NURSE TO ASSESS, EVALUATE, AND DEVELOP AN INDIVIDUALIZED PLAN OF CARE. AGENCY MAY ACCEPT ORDERS FROM CONSULTING PHYSICIANS SN TO OBSERVE/ASSESS RISK FOR FALLS AND INSTRUCT IN FALL PREVENTION, HOME SAFETY, MEDICATION MANAGEMENT, INFECTION PREVENTION, AND NUTRITION MANAGEMENT. SN MAY PERFORM O2 SATURATION LEVEL ON ADMISSION AND PRN FOR RESP STATUS CHANGES TO ASSESS PATIENT, WITH NOTIFICATION TO THE PHYSICIAN IF SATURATION IS 90% IN THE ABSENCE OF MORE SPECIFIC PARAMETERS FROM THE PHYSICIAN. AGENCY MAY PERFORM A RESUMPTION OF CARE VISIT FOLLOWING ANY HOSPITAL ADMISSION. SKILLED NURSE TO ASSESS/EVALUATE CO-MORBID CONDITIONS AND ANY NEW CONDITIONS THAT PRESENT THEMSELVES DURING THIS EPISODE TO IDENTIFY CHANGES AND INTERVENE TO MINIMIZE COMPLICATIONS.] Future Scheduled Test MEDICATION MANAGEMENT; SKILLED NURSE TO REVIEW MEDICATIONS FOR INTERACTIONS, EFFECTIVENESS OF DRUG THERAPY, AND SIGNS/SYMPTOMS OF ADVERSE REACTIONS. MAY INSTRUCT AND REINFORCE MEDICATION TEACHING RELATED TO THE USE OF MEDICATIONS, DOSAGE, FREQUENCY, PURPOSE, SIDE EFFECTS, AND TO REPORT COMPLICATIONS. [code = MEDICATION MANAGEMENT; SKILLED NURSE TO REVIEW MEDICATIONS FOR INTERACTIONS, EFFECTIVENESS OF DRUG THERAPY, AND SIGNS/SYMPTOMS OF ADVERSE REACTIONS. MAY INSTRUCT AND REINFORCE MEDICATION TEACHING RELATED TO THE USE OF MEDICATIONS, DOSAGE, FREQUENCY, PURPOSE, SIDE EFFECTS, AND TO REPORT COMPLICATIONS.] Future Scheduled Test RISK FOR H OSPITALIZATION; SKILLED NURSE TO INSTRUCT PATIENT/CAREGIVER ON RISK FOR HOSPITALIZATION/EMERGENCY ROOM VISITS, TEACH SIGNS AND SYMPTOMS THAT PUT PATIENT AT RISK, WHEN TO NOTIFY NURSE/PHYSICIAN OF COMPLICATIONS/DECLINE, AND WHEN TO CALL 911. [code = RISK FOR HOSPITALIZATION; SKILLED NURSE TO INSTRUCT PATIENT/CAREGIVER ON RISK FOR HOSPITALIZATION/EMERGENCY ROOM VISITS, TEACH SIGNS AND SYMPTOMS THAT PUT PATIENT AT RISK, WHEN TO NOTIFY NURSE/PHYSICIAN OF COMPLICATIONS/DECLINE, AND WHEN TO CALL 911.] Future Scheduled Test NEUROLOGIC AL SYSTEM MANAGEMENT; SKILLED NURSE TO OBSERVE, ASSESS AND TEACH RELATED TO ALTERED NEUROLOGICAL STATUS TO MINIMIZE COMPLICATIONS AND REDUCE HOSPITALIZATION. [code = NEUROLOGICAL SYSTEM MANAGEMENT; SKILLED NURSE TO OBSERVE, ASSESS AND TEACH RELATED TO ALTERED NEUROLOGICAL STATUS TO MINIMIZE COMPLICATIONS AND REDUCE HOSPITALIZATION.] Future Scheduled Test PARKINSON' S MANAGEMENT; SKILLED NURSE TO PROVIDE SKILLED TEACHING AND MANAGEMENT OF PARKINSON DISEASE FOR SELF-CARE. [code = PARKINSON'S MANAGEMENT; SKILLED NURSE TO PROVIDE SKILLED TEACHING AND MANAGEMENT OF PARKINSON DISEASE FOR SELF-CARE.] Future Scheduled Test PAIN MANAG EMENT; SKILLED NURSE TO OBSERVE, ASSESS, AND PROVIDE EDUCATION ON PAIN MANAGEMENT TECHNIQUES. [code = PAIN MANAGEMENT; SKILLED NURSE TO OBSERVE, ASSESS, AND PROVIDE EDUCATION ON PAIN MANAGEMENT TECHNIQUES.] Future Scheduled Test GENITOURIN MELE MANAGEMENT; SKILLED NURSE TO ASSESS AND TEACH RELATED TO ALTERED GENITOURINARY STATUS TO MINIMIZE COMPLICATIONS AND REDUCE HOSPITALIZATION. [code = GENITOURINARY MANAGEMENT; SKILLED NURSE TO ASSESS AND TEACH RELATED TO ALTERED GENITOURINARY STATUS TO MINIMIZE COMPLICATIONS AND REDUCE HOSPITALIZATION.] Future Scheduled Test URINARY TR ACT INFECTION MANAGEMENT; SKILLED NURSE TO PROVIDE SKILLED TEACHING AND SELF- CARE MANAGEMENT RELATED TO UTI TO MINIMIZE COMPLICATIONS AND REDUCE THE RISK OF HOSPITALIZATION. [code = URINARY TRACT INFECTION MANAGEMENT; SKILLED NURSE TO PROVIDE SKILLED TEACHING AND SELF- CARE MANAGEMENT RELATED TO UTI TO MINIMIZE COMPLICATIONS AND REDUCE THE RISK OF HOSPITALIZATION.] Future Scheduled Test FALL REDUC TION MANAGEMENT; NURSING TO PROVIDE SKILLED ASSESSMENT, EDUCATION, AND INTERVENTION TO IDENTIFY FALL RISK FACTORS SUCH MEDICATIONS THAT MAY CAUSE DIZZINESS, CHRONIC DISEASES, PSYCHOLOGICAL FACTORS, AND EMPOWER/EDUCATE PATIENT/CAREGIVER TO MINIMIZE FALL RISK. [code = FALL REDUCTION MANAGEMENT; NURSING TO PROVIDE SKILLED ASSESSMENT, EDUCATION, AND INTERVENTION TO IDENTIFY FALL RISK FACTORS SUCH MEDICATIONS THAT MAY CAUSE DIZZINESS, CHRONIC DISEASES, PSYCHOLOGICAL FACTORS, AND EMPOWER/EDUCATE PATIENT/CAREGIVER TO MINIMIZE FALL RISK.] Future Scheduled Test AGENCY MAY PERFORM A RESUMPTION OF CARE VISIT FOLLOWING ANY HOSPITAL ADMISSION. OCCUPATIONAL THERAPY TO EVALUATE, ASSESS, AND MONITOR, PROVIDE SKILLED THERAPEUTIC INTERVENTION, ACTIVITY, EDUCATION, AND TRAINING TO ADDRESS; BATHING/SHOWERING (OT) TOILETING (OT) DRESSING (OT) MODIFIED PASHA INDEX (OT) EQUILIBRIUM REACTIONS/BALANCE (OT) UPPER EXTREMITY MUSCLE POWER (OT) OXYGEN SATURATION (OT); NOTIFY MD IF O2 SATS BELOW 90% AFTER 10 MIN OF REST FALL REDUCTION (OT) PARKINSONS (OT) [code = AGENCY MAY PERFORM A RESUMPTION OF CARE VISIT FOLLOWING ANY HOSPITAL ADMISSION. OCCUPATIONAL THERAPY TO EVALUATE, ASSESS, AND MONITOR, PROVIDE SKILLED THERAPEUTIC INTERVENTION, ACTIVITY, EDUCATION, AND TRAINING TO ADDRESS; BATHING/SHOWERING (OT) TOILETING (OT) DRESSING (OT) MODIFIED PASHA INDEX (OT) EQUILIBRIUM REACTIONS/BALANCE (OT) UPPER EXTREMITY MUSCLE POWER (OT) OXYGEN SATURATION (OT); NOTIFY MD IF O2 SATS BELOW 90% AFTER 10 MIN OF REST FALL REDUCTION (OT) PARKINSONS (OT) ] Future Scheduled Test AGENCY MAY PERFORM A RESUMPTION OF CARE VISIT FOLLOWING ANY HOSPITAL ADMISSION. PHYSICAL THERAPY TO EVALUATE, ASSESS AND MONITOR, PROVIDE SKILLED THERAPEUTIC INTERVENTION, ACTIVITY, EDUCATION, AND TRAINING TO ADDRESS: TRANSFER TRAINING (PT) GAIT TRAINING (PT) NEUROMUSCULAR RE-EDUCATION / BALANCE RETRAINING (PT) THERAPEUTIC EXERCISES (PT) ENERGY CONSERVATION (PT) OXYGEN SATURATION (PT). NOTIFY MD IF 02SATS BELOW 90% AFTER 10 MIN OF REST. IDENTIFY FALL RISK FACTORS AND ESTABLISH HOME EXERCISE PROGRAM TO MINIMIZE FALL RISK. MAY TEACH THE PATIENT FLOOR RECOVERY WHEN CLINICALLY APPROPRIATE (PT) PARKINSONS SELF-MANAGEMENT (PT) [code = AGENCY MAY PERFORM A RESUMPTION OF CARE VISIT FOLLOWING ANY HOSPITAL ADMISSION. PHYSICAL THERAPY TO EVALUATE, ASSESS AND MONITOR, PROVIDE SKILLED THERAPEUTIC INTERVENTION, ACTIVITY, EDUCATION, AND TRAINING TO ADDRESS: TRANSFER TRAINING (PT) GAIT TRAINING (PT) NEUROMUSCULAR RE-EDUCATION / BALANCE RETRAINING (PT) THERAPEUTIC EXERCISES (PT) ENERGY CONSERVATION (PT) OXYGEN SATURATION (PT). NOTIFY MD IF 02SATS BELOW 90% AFTER 10 MIN OF REST. IDENTIFY FALL RISK FACTORS AND ESTABLISH HOME EXERCISE PROGRAM TO MINIMIZE FALL RISK. MAY TEACH THE PATIENT FLOOR RECOVERY WHEN CLINICALLY APPROPRIATE (PT) PARKINSONS SELF-MANAGEMENT (PT)] Goal 2022-12-11 Patient Goal - TO WALK WITHO [facility] Goal Provider Goal - A PLAN OF CARE WILL BE ESTABLISHED THAT MEETS THE PATIENTS NEEDS. PATIENT WILL DEMONSTRATE OXYGEN SATURATION WITHIN NORMAL LIMITS OR PATIENTS OPTIMAL LEVEL ESTABLISHED BY THE PHYSICIAN THROUGHOUT CARE. CHANGES TO CO-MORBID CONDITIONS AND ANY NEW CONDITIONS WILL BE IDENTIFIED AND REPORTED TO THE PHYSICIAN. Goal Provider Goal - PATIENT/CAREGIVER TO VERBALIZE, AND CONSISTENTLY DEMONSTRATE EFFECTIVE, SAFE MANAGEMENT OF MEDICATION INCLUDING KNOWLEDGE OF EFFECTIVENESS, POTENTIAL SIDE EFFECTS AND DRUG REACTIONS AND WHEN TO CONTACT THE APPROPRIATE CARE PROVIDER. PATIENT/CAREGIVER WILL BE ABLE TO VERBALIZE UNDERSTANDING OF MEDICATION REGIMEN AND ACCURATELY TAKE MEDICATIONS PRESCRIBED WITHOUT ADVERSE EFFECTS BY 12/12/22 Goal Provider Goal - PATIENT/CAREGIVER WILL VERBALIZE UNDERSTANDING OF SIGNS AND SYMPTOMS THAT PUT THE PATIENT AT RISK FOR HOSPITALIZATION /EMERGENCY ROOM VISITS, WHEN TO NOTIFY NURSE/PHYSICIAN OF COMPLICATIONS/DECLINE AND WHEN TO CALL 911. Goal Provider Goal - PATIENT / CAREGIVER WILL VERBALIZE/DEMONSTRATE UNDERSTANDING OF MEASURES TO MANAGE ALTERED NEUROLOGICAL STATUS BY 12/12/22 Goal Provider Goal - PATIENT/CAREGIVER WILL VERBALIZE/DEMONSTRATE UNDERSTANDING OF CARE AND MANAGEMENT OF PARKINSON'S DISEASE BY 12/12/22 Goal Provider Goal - PATIENT / CAREGIVER WILL VERBALIZE / DEMONSTRATE UNDERSTANDING OF PAIN CONTROL MEASURES BY 12/12/22 Goal Provider Goal - PATIENT / CAREGIVER WILL VERBALIZE/DEMONSTRATE UNDERSTANDING OF MEASURES TO MANAGE ALTERED GENITOURINARY STATUS BY END OF EPISODE. Goal Provider Goal - PATIENT/CAREGIVER WILL VERBALIZE/DEMONSTRATE UNDERSTANDING OF CARE AND MANAGEMENT OF URINARY TRACT INFECTION BY 12/12/22 Goal Provider Goal - PATIENT/CAREGIVER ABLE TO IDENTIFY FALL RISK FACTORS AND IMPLEMENT STRATEGIES TO MINIMIZE FALL RISK. PATIENT/CAREGIVER WILL VERBALIZE/DEMONSTRATE AN ABILITY TO ADHERE TO FALL REDUCTION SELF MANAGEMENT AND LIFE-STYLE CHANGES AT DISCHARGE. PERSONAL GOAL(S) STATED BY PATIENT/CAREGIVER WILL BE MET BY 12/12/22 Goal Provider Goal - OT LTG: PATIENT WILL DEMONSTRATE IMPROVED ABILITY TO PERFORM BATHING IN THE SHOWER WITH ADAPTIVE EQUIPMENT AND UTILIZING ENERGY CONSERVATION AND WORK SIMPLIFICATION TECHNIQUES FROM MODERATE ASSISTANCE SBA WITHIN 6 WEEKS. OT LTG: PATIENT WILL DEMONSTRATE IMPROVED ABILITY TO PERFORM SHOWER TRANSFER FROM MOD A TO SBA WITHIN 4 WEEKS. OT STG: PATIENT WILL DEMONSTRATE IMPROVED ABILITY TO PERFORM TOILET TRANSFER FROM CG / MIN A TO INDEPENDENT WITHIN 4 WEEKS OT LTG: PATIENT WILL DEMONSTRATE IMPROVED ABILITY TO PERFORM UB/LB DRESSING INCLUDING ITEM RETRIEVAL FROM MIN A TO INDEPENDENCE UTILIZING ADAPTIVE EQUIPMENT NEEDED WITHIN 4 WEEKS OT LTG: PATIENT WILL DEMONSTRATE IMPROVED INDEPENDENCE WITH ACTIVITIES OF DAILY LIVING (ADL) SKILLS EVIDENCED BY AN IMPROVEMENT IN MODIFIED PASHA INDEX SCORE FROM 66/100 TO 78/100 INDICATING DECREASED DEPENDENCY ON CAREGIVER ASSISTANCE WITHIN 8 WEEKS. OT LTG: PATIENT WILL DEMONSTRATE DECREASED FALL RISK EVIDENCED BY AN IMPROVEMENT PATIENT WILL MAINTAIN OXYGEN SATURATION WITHIN PHYSICIAN ORDERED PARAMETERS THROUGHOUT THE EPISODE OF CARE. PATIENT/CAREGIVER WILL BE ABLE TO IMPLEMENT OCCUPATIONAL THERAPY EDUCATION RECOMMENDATIONS SPECIFIC TO FALL REDUCTION FOR IMPROVED ADL/IADL COMPLETION AND HOME SAFETY BY DISCHARGE. OT GOAL: PATIENT/CAREGIVER WILL INCORPORATE PARKINSONS PATIENT EMPOWERMENT STRATEGIES INTO DAILY ROUTINE BY DISCHARGE. Goal Provider Goal - PT STG: PATIENT WILL DEMONSTRATE IMPROVED TRANSFERS FROM. SUPERVISION TO INDEPENDENT WITHIN 5 WEEKS. PT LTG: PATIENT WILL DEMONSTRATE IMPROVED AMBULATION FROM SBA TO INDEPENDENT WITHOUT AD WITHIN 9 WEEKS. PT STG: PATIENT WILL DEMONSTRATE INDEPENDENCE IN HOME EXERCISE PROGRAM OF STRENGTHENING EXERCISES BALANCE EXERCISES AND PROGRESSIVE AMBULATION PROGRAM TO ALLOW PATIENT TO CARRY OVER GAINS MADE DURING SKILLED HOME PHYSICAL THERAPY WITHIN 5 WEEKS. PT LTG: PATIENT WILL DEMONSTRATE INCREASED STRENGTH OF BILAT LES FROM 4- /5 TO 4/5 WITHIN 9 WEEKS. IN ORDER TO RETURN TO INDEPENDENT COMMUNITY MOBILITY SKILLS. PT LTG: PATIENT / CAREGIVER WILL DEMONSTRATE UNDERSTANDING OF ENERGY CONSERVATION MEASURES, EVIDENCED BY INCREASED ACTIVITY TOLERANCE INCREASING FROM ASSISTED HOME MOBILITY TO INDEPENDENT COMMUNITY MOBILITY SKILLS WITHIN 9 WEEKS. PT LTG: PATIENT WILL DEMONSTRATE REDUCED FALL RISK EVIDENCED BY TUG TEST (CUT SCORE >11 SECONDS INDICATES INCREASED FALL RISK) IMPROVING FROM UNABLE TO 11 WITHIN 9 WEEKS PATIENT WILL MAINTAIN OXYGEN SATURATION WITHIN PHYSICIAN ORDERED PARAMETERS THROUGHOUT EPISODE OF CARE PATIENT/CAREGIVER WILL DEMONSTRATE ADHERENCE TO FALL REDUCTION SELF MANAGEMENT TO MINIMIZE FALL RISK BY DISCHARGE. PT GOAL: PATIENT/CAREGIVER WILL BE VERBALIZE UNDERSTANDING OF A PARKINSON'S AND SELF-MANAGEMENT AND LIFE-STYLE CHANGES AT DISCHARGE. Reason for Visit MINIMUM ASSIST WITH TRANSFER/AMBULATION/ADLS Encounters Start Date/Time End Date/Time Encounter Type Admission Type Attending [facility] Facility Care Department Encounter ID Discharge Date Discharge Status Discharge Condition Discharge Reason Percent Goals Met 2022-10-14 00:00:00 2022-12-11 00:00:00 Outpatient NEW ADMISSION [facility]EDO [facility] [id number] 2022-12-11 00:00:00 DISCHARGE TO HOME OR SELF CARE MINIMUM ASSIST WITH TRANSFER/A MBULATION/ ADLS HH OR PAL- GOALS MET 97.44
--- NOTE | 2024-10-06 10:43 | MHC.OFFVIS ---
Vital Signs 10/06/24 10:46 Height 5 ft 8 in BMI Reason not done Patient refused/unable BP 97/53 L Blood Pressure Location Lt brachial Position Sitting Respiration 16 Pulse 57 Pulse Source Pulse Oximeter Pulse Oximetry (%) 98 Oxygen Delivery Method Room Air Intake Visit Reasons: Low Back Pain Allergies ammonia [AMMONIA] Allergy (Intermediate, Verified 10/06/24 10:48) SHORTNESS OF BREATH sodium hypochlorite solution [Sodium Hypochlorite] Allergy (Intermediate, Verified 10/06/24 10:48) SHORTNESS OF BREATH ( BLEACH ) Medication List - Last Reconciled 10/06/24 by Mariajose Moraes LPN acetaminophen ER (Tylenol 8 Hour) 650 mg PO Q6H bisacodyl [address] DAILY PRN carbidopa-levodopa 25-100 mg 1 tab PO QID chlorpromazine 50 mg PO Q6-8H clonazepam 0.5 mg PO DAILY clotrimazole 1% 1 appl topical BID 4 weeks divalproex (Depakote) 500 mg PO BID gabapentin 300 mg PO BID lidocaine 5% 1 patch topical DAILY PRN lidocaine 4% (Aspercreme (lidocaine)) 1 spray topical TID PRN loperamide (Imodium A-D) 2 mg PO BID PRN miconazole nitrate 2% (Zeasorb AF) 1 appl topical BID omeprazole 40 mg PO BID polyethylene glycol 3350 (Miralax) 17 grams PO DAILY sucralfate 1 g PO ONCE tamsulosin 0.4 mg PO DAILY 90 days valacyclovir 1,000 mg PO Q8H 7 days HPI HPI Low Back Pain: Details: 74-year-old male who presents today to the office for evaluation of low back pain. He was accompanied by an heat treat worker today in the office. He had a rash on his right shoulder that extends up his neck on the right side. He was diagnosed with a shingles infection on 08/31/2024. He was seen in [facility] on 09/08/2024 after being diagnosed with shingles from urgent care and given valacyclovir. He is currently complaining of right-sided pain in the back and neck area around the shingles rash. He also has chronic low back pain. He has been taking gabapentin and has been tolerating it well. He is also using topical lidocaine cream for pain management.?He will follow up with neurologist tomorrow. [facility] Medical History Right carpal tunnel syndrome SARA (generalized anxiety disorder) COPD (chronic obstructive pulmonary disease) Tubular adenoma of colon Rib fractures GERD (gastroesophageal reflux disease) Mental and behavioral problem Hypercholesterolemia Intractable hiccups BPH (benign prostatic hyperplasia) Seizure disorder Parkinsons disease Surgical History Hx of colonoscopy Hx of hernia repair Hx of tonsillectomy History of carpal tunnel release History of cholecystectomy Family History Father Lung cancer Mother Brain cancer COPD (chronic obstructive pulmonary disease) Social History Housing: Assisted Living Facility Alcohol intake: current Alcohol intake frequency: does not drink Patient Tobacco Use Status: Never used Tobacco e-Cigarette/Vaping Use: Never Used Second Hand Smoke Exposure: No service: No Current occupational status: retired Cognitive needs: Yes (walker) Hearing needs: Yes (hearing aids in both ears) Vision needs: Yes (glasses) Review of Systems Const All systems reviewed & are unremarkable except as noted in HPI and below Physical Exam Vital Signs: Last Vital Signs Pulse 57 10/06/24 10:46 Resp 16 10/06/24 10:46 BP 97/53 L 10/06/24 10:46 Pulse Ox 98 10/06/24 10:46 Oxygen Delivery Method Room Air 10/06/24 10:46 General: Appears afebrile. Alert and oriented. Mood and affect appropriate. Follows and participates in conversation appropriately. Respiratory effort is unlabored. Able to transition from sit to stand unassisted. Ambulates with bilaterally normal heel strike and toe off. Sensitivity to superficial palpation in the right shoulder area. Tenderness to palpation in the mid low back area. Results Reviewed Results Reviewed: No imaging is available for review. Assessment & Plan Assessment & Plan (1) Shingles: Code(s): B02.9 - Zoster without complications Category: Medical Qualifiers: Herpes zoster complications: without complications Qualified Code(s): B02.9 - Zoster without complications (2) Chronic low back pain: Code(s): M54.50 - Low back pain, unspecified; G89.29 - Other chronic pain Category: Medical Plan I recommended he continue gabapentin and topical lidocaine cream for his shingles related pain management. I also recommended that he discuss increasing the dose of his gabapentin to T.I.D. with his neurologist; he has an appointment scheduled tomorrow, so he will follow up on that with them. Due to limited ability to provide adequate pain description, dementia and limited mobility, he is not a candidate for interventional therapy for his low back pain and will continue to require medical management per his primary care to improve comfort. Follow up as needed. Scribed for Dr. Álvarez by Emir Cartwright, medical lab technologist, on 10/06/2024. I, Dr. Álvarez, have personally reviewed and agree with the information entered by the scribe. Coding Level of Care Code New Pt Level 4 (79253) Diagnoses Herpes zoster without complication B02.9 Herpes zoster complications: without complications Chronic low back pain M54.50; G89.29
[2024-10-06 10:46] VITALS: BP 97/53; PULSE 57; RESP 16; O2SAT 98
== END 2024-10-06 11:15 | disposition home or self-care (01) ==
PROVIDERS: PCP Internal Medicine; Visit Provider Internal Medicine
DX: B02.9 Zoster without complications (principal); M54.50 Low back pain, unspecified; G89.29 Other chronic pain
CPT/HCPCS: 99204

== ENCOUNTER → 2024-10-06 10:21 | Outpatient (BNVA) | payer MEDICARE, MEDICAID, SELFPAY | PROVIDERS: PCP Internal Medicine; Visit Provider Internal Medicine | DX: M54.50 Low back pain, unspecified (principal); G89.29 Other chronic pain; B02.9 Zoster without complications | CPT/HCPCS: 99202 ==

== ENCOUNTER 2024-10-10 14:17 | Outpatient (AMB) | payer MEDICARE, MEDICAID, SELFPAY ==
--- NOTE | 2024-10-10 14:18 | MHC.PC.OV ---
Vital Signs 10/10/24 14:32 Height 5 ft 8 in Weight 142 lb 4 oz BMI 21.6 BP 108/64 Blood Pressure Location Lt brachial Position Sitting Pulse 54 Pulse Source Pulse Oximeter Pulse Oximetry (%) 98 Oxygen Delivery Method Room Air Intake Visit Reasons: balanitis, gerd Allergies ammonia [AMMONIA] Allergy (Intermediate, Verified 10/10/24 14:49) SHORTNESS OF BREATH sodium hypochlorite solution [Sodium Hypochlorite] Allergy (Intermediate, Verified 10/10/24 14:49) SHORTNESS OF BREATH ( BLEACH ) Tobacco use date assessed: 10/10/24 Last assessed Fall Risk: 10/10/24 Dental Screening Dental Screen Date: 10/10/24 Did you have a dental visit in the last 12 months?: Yes Did you have a dental problem in the last 6 months where you did not have access to dental care?: No Was dental information given to patient?: Patient has dentist HPI jovany gerd HPI Details The patient is a 74-year-old male presenting with shingles, primarily seeking management for postherpetic neuralgia. The patient reports that the shingles rash has resolved, but he continues to experience significant pain. The pain management includes gabapentin, which has been increased to three times daily, although the patient acknowledges it only reduces the pain without eliminating it. The onset of shingles occurred some time ago, resulting in persistent neuropathic pain. There has been no recent change in this condition, and the pain can remain protracted despite medical management. Additionally, the patient has a history of rectal incontinence, which he reports has improved recently, with no accidents occurring for some time now. Past medical evaluations noted colon polyps, and the last colonoscopy was conducted in 2020, revealing polyps necessitating regular follow-up with gastroenterology. The patient also notes difficulty swallowing. Previous evaluations reported issues with dysphagia, recommending precautions with eating to prevent choking episodes. Modifications include cutting food into small pieces, which caregivers assist with. Finally, the patient is on long-term medication for Parkinson's disease, which addresses seizure and motor symptoms associated with the condition. No new symptoms related to Parkinson's have been reported during this visit. [facility] Medical History (Updated 10/10/24 @ 16:42 by Yaw Mcdaniel MD) Right carpal tunnel syndrome SARA (generalized anxiety disorder) COPD (chronic obstructive pulmonary disease) Tubular adenoma of colon Rib fractures GERD (gastroesophageal reflux disease) Mental and behavioral problem Hypercholesterolemia Intractable hiccups BPH (benign prostatic hyperplasia) Seizure disorder Parkinsons disease Surgical History Hx of colonoscopy Hx of hernia repair Hx of tonsillectomy History of carpal tunnel release History of cholecystectomy Family History Father Lung cancer Mother Brain cancer COPD (chronic obstructive pulmonary disease) Social History Housing: Assisted Living Facility Alcohol intake: current Alcohol intake frequency: does not drink Patient Tobacco Use Status: Never used Tobacco e-Cigarette/Vaping Use: Never Used Second Hand Smoke Exposure: No service: No Current occupational status: retired Cognitive needs: Yes (walker) Hearing needs: Yes (hearing aids in both ears) Vision needs: Yes (glasses) Questionnaire PHQ-9 Over the last 2 weeks, how often have you been bothered by any of the following problems? 1. Little interest or pleasure in doing things: not at all 2. Feeling down, depressed, or hopeless: not at all 3. Trouble falling or staying asleep, or sleeping too much: not at all 4. Feeling tired or having little energy: not at all 5. Poor appetite or overeating: not at all 6. Feeling bad about yourself - or that you are a failure or have let yourself or your family down: not at all 7. Trouble concentrating on things, such as reading the newspaper or watching television: not at all 8. Moving or speaking so slowly that other people could have noticed. Or the opposite - being so fidgety or restless that you have been moving around a lot more than usual: not at all 9. Thoughts that you would be better off or of hurting yourself in some way: not at all Total score: 0 Depression Screening Interpretation: Negative Depression Screening Done: Yes 97124 - PHQ-9 Billing: Yes Source: Developed by Drs. Jeff Ngo, Jasmina Carlos, Kevin Pratt and colleagues, with an educational roge from [employer]. Thrive Questionnaire Date Thrive assessed: 10/10/24 I am a: Patient What is your living situation today?: I have a steady place to live Within the past 12 months, did the food you bought not last and you didn't have the money to get more?: Never true Within the past 12 months, did you worry whether your food would run out before you got money to buy more?: Never true Do you have trouble paying for medicines?: No Do you have trouble getting transportation to medical appointments?: No Do you have trouble paying your heating and electricity bill?: No Do you have trouble taking care of your child, family member or friend?: No Do you have trouble with day-to-day activities such as bathing, preparing meals, shopping, managing finances, etc.?: No Are you currently unemployed and looking for a job?: No Are you interested in more education?: No Please select the resources that you would like help with: None THRIVE Score: 0 AUDIT C Alcohol Use Questionnaire (AUDIT-C) 1. How often do you have a drink containing alcohol?: Never 3. How often do you have six or more drinks on one occasion?: Never Total Score: 0 Score Reviewed/Action Taken: No SARA-7 AMB Questionnaire SARA-7 Date SARA - 7 assessed: 10/10/24 Feeling nervous, anxious, or on edge: 0 = Not at all Not being able to stop or control worryin = Not at all Worrying too much about different things: 0 = Not at all Trouble relaxin = Not at all Being so restless that it is hard to sit still: 0 = Not at all Becoming easily annoyed or irritable: 0 = Not at all Feeling afraid as if something awful might happen: 0 = Not at all Total SARA-7 score (0-4 normal; 5-9 mild; 10-14 moderate; 15-21 severe): 0 Source: Developed by Drs. Jeff Ngo, Jasmina Carlos, Kevin Pratt and colleagues, with an educational roge from [employer]. SARA-7 Assessment Billing SARA-7 Assessment Tool: SARA-7 Assessment 94530 Physical exam (Primary Care) Vital Signs: Last Vital Signs Pulse 54 10/10/24 14:32 BP 108/64 10/10/24 14:32 Pulse Ox 98 10/10/24 14:32 Oxygen Delivery Method Room Air 10/10/24 14:32 BMI result Body Mass Index 21.6 Tobacco/Smoking Status: Tobacco use Status Tobacco use date assessed 10/10/24 10/10/24 14:34 Patient Tobacco Use Status Never used Tobacco 10/10/24 14:18 e-Cigarette/Vaping Use Never Used 10/10/24 14:18 PHQ-9: PHQ-9 Score PHQ-9: Total score 0 10/10/24 15:21 Depression Screening Interpretation: Negative Thrive Assessment: Date of Thrive Assessment Date Thrive assessed 10/10/24 10/10/24 14:52 Office Procedures Flu Questionnaire Does the patient have a severe egg allergy?: No Does the patient have severe life threatening allergies?: No Does the patient have a fever or illness today?: No Has the patient ever had Guillain-Louin Syndrome?: No Has the patient ever had any past reaction to a flu shot?: No Immunizations Fluarix Triv 0424-5010 (PF) 45 mcg (15 mcg x 3)/0.5 mL IM syringe Performing Provider: Yaw Mcdaniel MD [facility] Administered by: AUGUST Moran on 10/10/24 15:32 Dose Route Admin Location Dispensed Lot Number Expiration Date [facility][NOTE 3] Focuser 0.5 mL IM Left Deltoid 0.5 mL [id number] 04/20/25 78584-202-75 [employer] VIS Given Date VIS Provided VIS Publication Date 10/10/24 Single Vaccine 21 Eligibility Eligibility Date Funding Source Not [facility] Eligible 10/10/24 Private Coding Level of Care Code Est Pt Level 4 (91746) Diagnoses Post herpetic neuralgia B02.29 Fecal incontinence R15.9 Tubular adenoma of colon D12.6 Seizure disorder G40.909 Parkinsons disease G20 GERD (gastroesophageal reflux disease) K21.9 Additional Codes SARA-7 Assessment Billing - SARA-7 Assessment Tool: SARA-7 Assessment 17659 ([id number]) PHQ-9 - 29436 - PHQ-9 Billing: Yes ([id number]) Assessment & Plan Assessment & Plan (1) Post herpetic neuralgia: Comment: r shoulder Code(s): B02.29 - Other postherpetic nervous system involvement Category: Medical Plan: Continuing on gabapentin 300 mg twice a day and may increase if needed. (2) Fecal incontinence: Code(s): R15.9 - Full incontinence of feces Category: Medical Plan: Patient denies having the problem anymore. But with the tubular adenoma it is time to get gastroenterology involved. (3) Tubular adenoma of colon: Comment: August 2010, July 20192016- Dr. Patrick; December 2019 Code(s): D12.6 - Benign neoplasm of colon, unspecified Category: Medical Plan: Referral to Gastroenterology for colon cancer screening. (4) Seizure disorder: Code(s): G40.909 - Epilepsy, unspecified, not intractable, without status epilepticus Category: Medical Plan: Continue with the medication and will retest for valproic acid level (5) Parkinsons disease: Code(s): G20 - Parkinson's disease Category: Medical Plan: Continue with present medication (6) GERD (gastroesophageal reflux disease): Comment: Erosive gastritis with Schatzki's ring Code(s): K21.9 - Gastro-esophageal reflux disease without esophagitis Category: Medical Plan: Avoid the foods that causes that usually spicy foods, tomato products, juices, coffee, soda and foods that your sensitive to. After eating do not lie down, allow 3-4 hours before in lie down. And keep the head of bed above 30 degrees to avoid the acid from going up. Plan - Continue current regimen of gabapentin for postherpetic neuralgia, with further pain management assessment if necessary. - Schedule referral to gastroenterology for a follow-up colonoscopy given the history of colon polyps, ensuring regular surveillance. - Encourage continued adherence to swallowing precautions: small food portions and thorough chewing, as per speech and swallowing evaluations. - No change to Parkinson?s medication regimen; continue with scheduled follow-up with neurology. - Administer influenza vaccination to maintain immunization coverage. - Healthcare Business Analyst on general safety and health precautions, reiterating the importance of not assuming invulnerability post-vaccination. - Reassess overall condition and manage any recurrent symptoms in upcoming visits. Orders: Orders Free T4 (Free Thyroxine) 6 Months G40.909 - Epilepsy, unspecified, not intractable, without status epilepticus Thyroid Stimulating Hormone 6 Months G40.909 - Epilepsy, unspecified, not intractable, without status epilepticus Vitamin B12 and Folate 6 Months G40.909 - Epilepsy, unspecified, not intractable, without status epilepticus Influenza [id number] Immunization Today Z23 - Encounter for immunization Complete Blood Count Auto Diff 6 Months G40.909 - Epilepsy, unspecified, not intractable, without status epilepticus Comprehensive Met. Panel 6 Months G40.909 - Epilepsy, unspecified, not intractable, without status epilepticus Lipid Panel 6 Months E78.00 - Pure hypercholesterolemia, unspecified, G40.909 - Epilepsy, unspecified, not intractable, without status epilepticus Prostate Specific Antigen Scr 6 Months G40.909 - Epilepsy, unspecified, not intractable, without status epilepticus Valproate 6 Months G40.909 - Epilepsy, unspecified, not intractable, without status epilepticus Referrals Gastroenterology Referral D36.9 - Benign neoplasm, unspecified site
--- OUTSIDE RECORDS SUMMARY | 2024-10-10 14:19 | XMS_ITS | Clinical Summary ---
Author Organization Unknown Care Team Providers Care Strawhat Sizer Name Role Phone PO INTERSTATE, JORGE Unavailable Unavaila loreto PRESCOTT RN, ROBERT Unavailable Unavailable JULIANO PT, ALFREDO Unavailable Unavailable [place] OT, LSIBETH Unavailable Unavailable Payers Payer Name Policy Type Policy Number Effective Date Expira tion Date MEDICARE.NGS.PDGM [id number] Problems Condition Name Condition Details Condition Category [...] ayed release 2021-10 2-14 00:00: 00 Yes [id number] GERD 1 capsule 2 TIMES DAILY 1 capsule 2 TIMES DAILY (route: oral) Med Classific ation: Gastroint estinal Therapy Agents tamsulosin 0.4 mg capsule 2021-10 00:00: 00 Yes [id number] BPH Per instruc tions EVERY DAY Per instructio ns EVERY DAY (route: oral) Med Classific ation: Genitouri nary Therapy gabapentin 300 mg capsule 2021-10 00:00: 00 Yes [id number] PARKINSONS Per instruc tions TWICE A DAY Per instructio ns TWICE A DAY (route: oral) Med Classific ation: Central Nervous System Agents sucralfate 1 gram tablet 2021-10 00:00: 00 Yes [id number] GERD Per instruc tions TWICE DAILY Per instructio ns TWICE DAILY (route: oral) Med Classific ation: Gastroint estinal Therapy Agents carbidopa 25 mg-levodopa 100 mg tablet 2021-10 00:00: 00 Yes [id number] PARKINSONS Per instruc tions 4 TIMES A DAY Per instructio ns 4 TIMES A DAY (route: oral) Med Classific ation: Central Nervous System Agents clonazepam 0.5 mg tablet 2021-10 00:00: 00 Yes [id number] ANXIETY 1 tablet DAILY 1 tablet DAILY (route: oral) Med Classific ation: Central Nervous System Agents divalproex 500 mg tablet,marcial yed release 2021-10 00:00: 00 Yes [id number] SEIZURES 1 tablet 2 TIMES DAILY 1 [...] End Date/Time Encounter Type Admission Type Attending [facility] Facility Care Department Encounter ID Discharge Date Discharge Status Discharge Condition Discharge Reason Percent Goals Met 2022-10-14 00:00:00 2022-12-11 00:00:00 Outpatient NEW ADMISSION ALFREDO [facility]NAO [facility] [id number] 2022-12-11 00:00:00 DISCHARGE TO HOME OR SELF CARE MINIMUM ASSIST WITH TRANSFER/A MBULATION/ ADLS HH OR PAL- GOALS MET 97.44
[2024-10-10 14:32] VITALS: BP 108/64; PULSE 54; O2SAT 98; BMI 21.6
== END 2024-10-10 15:40 | disposition home or self-care (01) ==
PROVIDERS: Visit Provider Internal Medicine
DX: R15.9 Full incontinence of feces (principal); B02.29 Other postherpetic nervous system involvement; G40.909 Epilepsy, unspecified, not intractable, without status epilepticus; G20.C Parkinsonism, unspecified; D12.6 Benign neoplasm of colon, unspecified; K21.9 Gastro-esophageal reflux disease without esophagitis; Z23 Encounter for immunization

== ENCOUNTER → 2024-10-10 14:17 | Outpatient (BNVA) | payer MEDICARE, MEDICAID, SELFPAY | PROVIDERS: Visit Provider Internal Medicine | DX: K21.9 Gastro-esophageal reflux disease without esophagitis (principal); R15.9 Full incontinence of feces; R13.10 Dysphagia, unspecified; G20.A1 Parkinson's disease without dyskinesia, without mention of fluctuations; B02.29 Other postherpetic nervous system involvement; D12.6 Benign neoplasm of colon, unspecified; G40.909 Epilepsy, unspecified, not intractable, without status epilepticus; Z23 Encounter for immunization; Z86.19 Personal history of other infectious and parasitic diseases | CPT/HCPCS: 90471; 90656; 96127; 99212 ==

== ENCOUNTER 2025-01-08 10:29 | Outpatient (AMB) | payer MEDICARE, MEDICAID, SELFPAY ==
--- NOTE | 2025-01-08 10:30 | MHC.OFFWIV ---
Intake Vital Signs 01/08/25 10:32 Weight 141 lb BP 112/70 Blood Pressure Location Rt brachial Position Sitting Pulse 60 Pulse Source Pulse Oximeter Pulse Oximetry (%) 95 Oxygen Delivery Method Room Air Intake Visit Reasons: EP runny nose ~ aspiration Intake Note: Patient here because yesterday he had two chocking episodes, runny nose. Patient Tobacco Use Status: Never used Tobacco Allergies ammonia [AMMONIA] Allergy (Intermediate, Verified 01/08/25 10:33) SHORTNESS OF BREATH sodium hypochlorite solution [Sodium Hypochlorite] Allergy (Intermediate, Verified 01/08/25 10:33) SHORTNESS OF BREATH ( BLEACH ) Do you need a note to return to daycare/school/sports/work: No HPI HPI Comments History of Present Illness Details 74 y/o male patient who presents to the walk in clinic with c/o URI symptoms. Patient is accompanied by a Odd Piece Checker; who reports Patient had 2 episodes of Choking but unwitnessed. Odd Piece Checker does not recall when these episodes took place. Reports Runny nose, and coughing. Denies SOB, Wheezing or CP. Vital Signs during visit today WNL. H/o Parkinson disease and seizures. He also has h/o Dysphagia; he has referral to Speech and Swallowing therapy awaiting on Appointment. [facility] Medical History (Updated 01/08/25 @ 11:16 by Savita Contreras NP) Acute respiratory disease Right carpal tunnel syndrome SARA (generalized anxiety disorder) COPD (chronic obstructive pulmonary disease) Tubular adenoma of colon Rib fractures GERD (gastroesophageal reflux disease) Mental and behavioral problem Hypercholesterolemia Intractable hiccups BPH (benign prostatic hyperplasia) Seizure disorder Parkinsons disease Surgical History Hx of colonoscopy Hx of hernia repair Hx of tonsillectomy History of carpal tunnel release History of cholecystectomy Family History Father Lung cancer Mother Brain cancer COPD (chronic obstructive pulmonary disease) Social History Housing: Assisted Living Facility Alcohol intake: current Alcohol intake frequency: does not drink Patient Tobacco Use Status: Never used Tobacco e-Cigarette/Vaping Use: Never Used Second Hand Smoke Exposure: No service: No Current occupational status: retired Cognitive needs: Yes (walker) Hearing needs: Yes (hearing aids in both ears) Vision needs: Yes (glasses) Review of Systems Const All systems reviewed & are unremarkable except as noted in HPI and below Physical Exam Vital Signs: Last Vital Signs Pulse 60 01/08/25 10:32 BP 112/70 01/08/25 10:32 Pulse Ox 95 01/08/25 10:32 Oxygen Delivery Method Room Air 01/08/25 10:32 Const General: no acute distress Nutritional Appearance: underweight Orientation/consciousness: patient oriented x3 Limitations: ambulation with walker HEENT Head: Yes normocephalic Ears: TM abnormal obstructed by cerumen General nose exam: Abnormal mucous membranes and turbinates present boggy and Nasal discharge present Face and sinus: Yes sinuses nontender Mouth: moist mucous membranes Throat: Yes postnasal drainage Resp Effort & Inspection: normal respiratory effort and able to speak in complete sentences Auscultation: clear to auscultation bilaterally, no crackles, no rales, no rhonchi and no wheezes Cardio Heart sounds: S1 normal heart sound present and S2 normal heart sound present Neuro General: patient oriented x3 Assessment & Plan Assessment & Plan (1) Acute respiratory disease: Code(s): J06.9 - Acute upper respiratory infection, unspecified Plan: Ordered SARs (2) Dysphagia: Code(s): R13.10 - Dysphagia, unspecified Qualifiers: Dysphagia type: unspecified Qualified Code(s): R13.10 - Dysphagia, unspecified Plan: Pt to f/u with Speech therapy and Swallowing test as ordered by PCP. Orders: Orders SARS-CoV2/FLU/RSV Today J06.9 - Acute upper respiratory infection, unspecified Coding Level of Care Code Est Pt Level 4 (74654) Diagnoses Acute respiratory disease J06.9 Dysphagia, unspecified type R13.10 Dysphagia type: unspecified Time Spent (min) 20
[2025-01-08 10:32] VITALS: BP 112/70; PULSE 60; O2SAT 95
== END 2025-01-08 11:10 | disposition home or self-care (01) ==
PROVIDERS: PCP Internal Medicine; Visit Provider Nurse Practitioner Family
DX: J06.9 Acute upper respiratory infection, unspecified (principal); R13.10 Dysphagia, unspecified

== ENCOUNTER 2025-01-08 10:29 | Outpatient (REF) | payer MEDICARE, MEDICAID, SELFPAY ==
[2025-01-08 15:26] LABS: Influenza A PCR NEGATIVE (Negative); Influenza B PCR NEGATIVE (Negative); Resp Syncy Virus RNA Qual PCR NEGATIVE (Negative); SARS COV2 PCR INHOUSE NEGATIVE (Negative)
== END 2025-01-08 10:30 | disposition home or self-care (01) ==
LOC: HO.LAB 10:29
PROVIDERS: Nurse Practitioner Family; PCP Internal Medicine
DX: J06.9 Acute upper respiratory infection, unspecified (principal); R13.10 Dysphagia, unspecified
CPT/HCPCS: 0241U; 99212

== ENCOUNTER 2025-01-21 08:35 | Outpatient (AMB) | payer MEDICARE, MEDICAID, SELFPAY ==
[2025-01-21 08:40] VITALS: BP 102/52; PULSE 56; O2SAT 96; BMI 21.0
--- NOTE | 2025-01-21 08:40 | MHC.PC.OV ---
Vital Signs 01/21/25 08:40 Height 5 ft 8 in Weight 138 lb BMI 21.0 BP 102/52 L Blood Pressure Location Lt brachial Position Sitting Pulse 56 Pulse Source Pulse Oximeter Pulse Oximetry (%) 96 Oxygen Delivery Method Room Air Intake Visit Reasons: ER Follow - up Allergies ammonia [AMMONIA] Allergy (Intermediate, Verified 01/21/25 08:40) SHORTNESS OF BREATH sodium hypochlorite solution [Sodium Hypochlorite] Allergy (Intermediate, Verified 01/21/25 08:40) SHORTNESS OF BREATH ( BLEACH ) Tobacco use date assessed: 01/21/25 Fall risk assessment: No Falls in past year Last assessed Fall Risk: 01/21/25 Dental Screening Dental Screen Date: 01/21/25 Did you have a dental visit in the last 12 months?: Yes Did you have a dental problem in the last 6 months where you did not have access to dental care?: No Was dental information given to patient?: Patient has dentist REPLACED BY [facility] Medical History (Updated 01/21/25 @ 08:49 by Yaw Mcdaniel MD) Acute respiratory disease Right carpal tunnel syndrome SARA (generalized anxiety disorder) COPD (chronic obstructive pulmonary disease) Tubular adenoma of colon Rib fractures GERD (gastroesophageal reflux disease) Mental and behavioral problem Hypercholesterolemia Intractable hiccups BPH (benign prostatic hyperplasia) Seizure disorder Parkinsons disease Surgical History Hx of colonoscopy Hx of hernia repair Hx of tonsillectomy History of carpal tunnel release History of cholecystectomy Family History Father Lung cancer Mother Brain cancer COPD (chronic obstructive pulmonary disease) Social History Housing: Assisted Living Facility Alcohol intake: current Alcohol intake frequency: does not drink Patient Tobacco Use Status: Never used Tobacco Tobacco use type: Cigarette e-Cigarette/Vaping Use: Never Used Second Hand Smoke Exposure: No service: No Current occupational status: retired Cognitive needs: Yes (walker) Hearing needs: Yes (hearing aids in both ears) Vision needs: Yes (glasses) Questionnaire PHQ-9 Over the last 2 weeks, how often have you been bothered by any of the following problems? 1. Little interest or pleasure in doing things: not at all 2. Feeling down, depressed, or hopeless: not at all 3. Trouble falling or staying asleep, or sleeping too much: not at all 4. Feeling tired or having little energy: not at all 5. Poor appetite or overeating: not at all 6. Feeling bad about yourself - or that you are a failure or have let yourself or your family down: not at all 7. Trouble concentrating on things, such as reading the newspaper or watching television: not at all 8. Moving or speaking so slowly that other people could have noticed. Or the opposite - being so fidgety or restless that you have been moving around a lot more than usual: not at all 9. Thoughts that you would be better off or of hurting yourself in some way: not at all Total score: 0 Depression Screening Interpretation: Negative Depression Screening Done: Yes 95698 - PHQ-9 Billing: Yes Source: Developed by Drs. Jeff Ngo, Jasmina Carlos, Kevin Pratt and colleagues, with an educational roge from [employer]. Thrive Questionnaire Date Thrive assessed: 01/21/25 I am a: Parent/Caregiver What is your living situation today?: I have a steady place to live Within the past 12 months, did the food you bought not last and you didn't have the money to get more?: Never true Within the past 12 months, did you worry whether your food would run out before you got money to buy more?: Never true Do you have trouble paying for medicines?: No Do you have trouble getting transportation to medical appointments?: No Do you have trouble paying your heating and electricity bill?: No Do you have trouble taking care of your child, family member or friend?: No Do you have trouble with day-to-day activities such as bathing, preparing meals, shopping, managing finances, etc.?: No Are you currently unemployed and looking for a job?: No Are you interested in more education?: No Please select the resources that you would like help with: None Currently or been in a relationship where the following occur: No concerns reported THRIVE Score: 0 AUDIT C Alcohol Use Questionnaire (AUDIT-C) 1. How often do you have a drink containing alcohol?: Never 3. How often do you have six or more drinks on one occasion?: Never Total Score: 0 Score Reviewed/Action Taken: No SARA-7 AMB Questionnaire SARA-7 Date SARA - 7 assessed: 01/21/25 Feeling nervous, anxious, or on edge: 0 = Not at all Not being able to stop or control worryin = Not at all Worrying too much about different things: 0 = Not at all Trouble relaxin = Not at all Being so restless that it is hard to sit still: 0 = Not at all Becoming easily annoyed or irritable: 0 = Not at all Feeling afraid as if something awful might happen: 0 = Not at all Total SARA-7 score (0-4 normal; 5-9 mild; 10-14 moderate; 15-21 severe): 0 Source: Developed by Drs. Jeff Ngo, Jasmina Carlos, Kevin Pratt and colleagues, with an educational roge from [employer]. SARA-7 Assessment Billing SARA-7 Assessment Tool: SARA-7 Assessment 01657 Physical exam (Primary Care) Vital Signs: Last Vital Signs Pulse 56 01/21/25 08:40 BP 102/52 L 01/21/25 08:40 Pulse Ox 96 01/21/25 08:40 Oxygen Delivery Method Room Air 01/21/25 08:40 BMI result Body Mass Index 21.0 Tobacco/Smoking Status: Tobacco use Status Tobacco use date assessed 01/21/25 01/21/25 08:48 Patient Tobacco Use Status Never used Tobacco 01/21/25 08:48 Tobacco use type Cigarette 01/21/25 08:48 e-Cigarette/Vaping Use Never Used 01/21/25 08:48 PHQ-9: PHQ-9 Score PHQ-9: Total score 0 01/21/25 08:48 Depression Screening Interpretation: Negative Thrive Assessment: Date of Thrive Assessment Date Thrive assessed 01/21/25 01/21/25 08:48 Currently or been in a relationship where the following occur: No concerns reported Const General: alert; No acute distress Eyes Conjunctivae: conjunctivae normal Resp Auscultation: clear to auscultation bilaterally Cardio Rate: regular rate Rhythm: regular rhythm GI Inspection: Yes normal to inspection Extrem General: Yes normal to inspection and No edema Coding Level of Care Code Est Pt Level 4 (71677) Diagnoses Dysphagia, unspecified type R13.10 Dysphagia type: unspecified GERD (gastroesophageal reflux disease) K21.9 URI (upper respiratory infection) J06.9 Tubular adenoma of colon D12.6 Additional Codes SARA-7 Assessment Billing - SARA-7 Assessment Tool: SARA-7 Assessment 19491 ([id number]) PHQ-9 - 54042 - PHQ-9 Billing: Yes ([id number]) Assessment & Plan Assessment & Plan (1) Dysphagia: Code(s): R13.10 - Dysphagia, unspecified Category: Medical Qualifiers: Dysphagia type: unspecified Qualified Code(s): R13.10 - Dysphagia, unspecified Plan: Patient has been seen by speech therapy and has modified directions for taking medications. (2) GERD (gastroesophageal reflux disease): Comment: Erosive gastritis with Schatzki's ring Code(s): K21.9 - Gastro-esophageal reflux disease without esophagitis Category: Medical Plan: Avoid the foods that causes that usually spicy foods, tomato products, juices, coffee, soda and foods that your sensitive to. After eating do not lie down, allow 3-4 hours before in lie down. And keep the head of bed above 30 degrees to avoid the acid from going up. (3) URI (upper respiratory infection): Code(s): J06.9 - Acute upper respiratory infection, unspecified Category: Medical Plan: resolved (4) Tubular adenoma of colon: Comment: August 2010, July 20192016- Dr. Patrick; December 2019 Code(s): D12.6 - Benign neoplasm of colon, unspecified Category: Medical Plan: Reminded about gastroenterology schedule mid month. Plan History of Present Illness The patient is a 74-year-old male presenting with multiple chronic conditions, including seizure disorder, Parkinson's disease, BPH, hypercholesterolemia, GERD, and posterior scapular neuralgia. He was recently treated for a viral upper respiratory tract infection with no positive influenza, RSV, or COVID-19 results. A barium swallow study previously revealed laryngeal penetration leading to chronic cough, for which speech therapy and dietary modifications have been implemented. Current medication management includes gabapentin for posterior scapular neuralgia. No acute intervention is required at this visit regarding the chronic toe pain following toenail trimming, as no external abnormalities were noted. Health Maintenance - Scheduled colonoscopy on February 05, 2024, for ongoing gastrointestinal evaluation of tubular adenoma. - No new abnormalities in blood work conducted in 2023, including normal blood count with thrombocytopenia. - Continual monitoring and management of hypercholesterolemia with effective control noted. Social History - Wears socks and slippers routinely, contributing to toe pain. - Participates in speech therapy sessions for chronic cough management. Review of Systems - Musculoskeletal: Reports toe pain following toenail trimming. - Respiratory: Reports chronic cough. - Neurological: No new neurological symptoms reported. Physical Exam - Respiratory- Auscultation performed, instructed to breathe deeply and cough during examination. - Musculoskeletal- No specific abnormalities noted in the feet upon inquiry. Results - Labs (2023): Normal blood count, thrombocytopenia noted, normal electrolytes. Normal renal function, blood sugar, and liver function. - Tests: Barium swallow (June 2024) showed laryngeal penetration. Plan The management plan includes continued administration of gabapentin for neuralgia, maintaining the patient's current dietary modifications and speech therapy for cough associated with GERD. Scheduled follow-up with gastroenterology for the tubular adenoma and blood work in February will continue as planned. Further evaluation or intervention on the toe pain is deferred unless the condition worsens. Routine checks for cholesterol control are maintained. The viral upper respiratory infection showed no progression and was managed conservatively. Patient was informed and verbally consented to the use of an ambient scribe for clinic note documentation during this visit. Discussion Notes I discussed with the patient the continuation of gabapentin for neuralgia and the recommended gastroenterology follow-up for the tubular adenoma. We reviewed the patient's current dietary and therapeutic measures for managing cough due to GERD. Furthermore, the patient acknowledged the rationale and consented to maintain the existing regimen for his chronic conditions. We affirmed the negative results for recent respiratory viral screenings, emphasizing routine precautions to prevent seasonal allergies affecting respiratory health. Patient Instructions - Continue taking gabapentin as prescribed for neuralgia. - Attend the scheduled gastroenterology appointment on February 05, 2024, for colonoscopy. - Maintain current diet following speech therapy recommendations to assist in managing cough. - Wear appropriate footwear and reduce time in socks and slippers to alleviate toe discomfort. - Monitor for any worsening of symptoms or new concerns, specifically regarding cough and toe pain. - Return for blood work in February as part of regular health maintenance.
== END 2025-01-21 09:45 | disposition home or self-care (01) ==
PROVIDERS: PCP Internal Medicine; Visit Provider Internal Medicine
DX: R13.10 Dysphagia, unspecified (principal); K21.9 Gastro-esophageal reflux disease without esophagitis; J06.9 Acute upper respiratory infection, unspecified; D12.6 Benign neoplasm of colon, unspecified

== ENCOUNTER → 2025-01-21 08:35 | Outpatient (BNVA) | payer MEDICARE, MEDICAID, SELFPAY | PROVIDERS: PCP Internal Medicine; Visit Provider Internal Medicine | DX: R13.10 Dysphagia, unspecified (principal); K21.9 Gastro-esophageal reflux disease without esophagitis; J06.9 Acute upper respiratory infection, unspecified; D12.6 Benign neoplasm of colon, unspecified | CPT/HCPCS: 96127; 99212 ==

== ENCOUNTER 2025-02-17 10:17 | Outpatient (AMB) | payer MEDICARE, MEDICAID, SELFPAY ==
--- NOTE | 2025-02-17 10:35 | A.OFFPC_ITS ---
Vital Signs 02/17/25 10:36 Height 5 ft 8 in Weight 138 lb 14.259 oz BMI 21.1 BP 112/68 Blood Pressure Location Lt brachial Position Sitting Respiration 16 Pulse 60 Pulse Source Pulse Oximeter Temp 97.5 F Temp Source Temporal Artery Scan Pulse Oximetry (%) 99 Oxygen Delivery Method Room Air Intake Visit Reasons: Annual Exam Shoe Packer Required: No Accompanied by: Retail Consultant Allergies ammonia [AMMONIA] Allergy (Intermediate, Verified 02/17/25 10:40) SHORTNESS OF BREATH sodium hypochlorite solution [Sodium Hypochlorite] Allergy (Intermediate, Verified 02/17/25 10:40) SHORTNESS OF BREATH ( BLEACH ) Medication List - Last Reconciled 02/17/25 by Yaw Mcdaniel MD acetaminophen ER (Tylenol 8 Hour) 650 mg PO Q6H bisacodyl 10 mg NM DAILY PRN carbidopa-levodopa 25-100 mg 1 tab PO QID chlorpromazine 50 mg PO Q6-8H clonazepam 0.5 mg PO DAILY clotrimazole 1% 1 appl topical BID 4 weeks divalproex (Depakote) 500 mg PO BID gabapentin 300 mg PO BID lidocaine 5% 1 patch topical DAILY PRN lidocaine 4% (Aspercreme (lidocaine)) 1 spray topical TID PRN loperamide (Imodium A-D) 2 mg PO BID PRN miconazole nitrate 2% (Zeasorb AF) 1 appl topical BID omeprazole 40 mg PO BID polyethylene glycol 3350 (Miralax) 17 grams PO DAILY sucralfate 1 g PO ONCE tamsulosin 0.4 mg PO DAILY 90 days Tobacco use date assessed: 02/17/25 Fall risk assessment: No Falls in past year Last assessed Fall Risk: 02/17/25 Dental Screening Dental Screen Date: 02/17/25 Did you have a dental visit in the last 12 months?: Yes Did you have a dental problem in the last 6 months where you did not have access to dental care?: No Was dental information given to patient?: Patient has dentist [facility] Medical History (Updated 02/17/25 @ 11:07 by Yaw Mcdaniel MD) Acute respiratory disease Right carpal tunnel syndrome SARA (generalized anxiety disorder) COPD (chronic obstructive pulmonary disease) Tubular adenoma of colon Rib fractures GERD (gastroesophageal reflux disease) Mental and behavioral problem Hypercholesterolemia Intractable hiccups BPH (benign prostatic hyperplasia) Seizure disorder Parkinsons disease Surgical History Hx of colonoscopy Hx of hernia repair Hx of tonsillectomy History of carpal tunnel release History of cholecystectomy Family History Father Lung cancer Mother Brain cancer COPD (chronic obstructive pulmonary disease) Social History Housing: Assisted Living Facility Alcohol intake: current Alcohol intake frequency: does not drink Patient Tobacco Use Status: Never used Tobacco Tobacco use type: Cigarette e-Cigarette/Vaping Use: Never Used Second Hand Smoke Exposure: No service: No Current occupational status: retired Cognitive needs: Yes (walker) Hearing needs: Yes (hearing aids in both ears) Vision needs: Yes (glasses) Questionnaire PHQ-9 Over the last 2 weeks, how often have you been bothered by any of the following problems? 1. Little interest or pleasure in doing things: not at all 2. Feeling down, depressed, or hopeless: not at all 3. Trouble falling or staying asleep, or sleeping too much: not at all 4. Feeling tired or having little energy: several days 5. Poor appetite or overeating: not at all 6. Feeling bad about yourself - or that you are a failure or have let yourself or your family down: not at all 7. Trouble concentrating on things, such as reading the newspaper or watching television: several days 8. Moving or speaking so slowly that other people could have noticed. Or the opposite - being so fidgety or restless that you have been moving around a lot more than usual: several days 9. Thoughts that you would be better off or of hurting yourself in some way: not at all Total score: 3 Depression Screening Interpretation: Negative Depression Screening Done: Yes 70083 - PHQ-9 Billing: Yes Source: Developed by Drs. Jeff Ngo, Jasmina Carlos, Kevin Pratt and colleagues, with an educational roge from [employer]. Thrive Questionnaire Date Thrive assessed: 02/17/25 I am a: Parent/Caregiver What is your living situation today?: I have a steady place to live Within the past 12 months, did the food you bought not last and you didn't have the money to get more?: Never true Within the past 12 months, did you worry whether your food would run out before you got money to buy more?: Never true Do you have trouble paying for medicines?: No Do you have trouble getting transportation to medical appointments?: No Do you have trouble paying your heating and electricity bill?: No Do you have trouble taking care of your child, family member or friend?: No Do you have trouble with day-to-day activities such as bathing, preparing meals, shopping, managing finances, etc.?: Yes Are you currently unemployed and looking for a job?: No Are you interested in more education?: No Please select the resources that you would like help with: None Currently or been in a relationship where the following occur: No concerns reported THRIVE Score: 0 AUDIT C Alcohol Use Questionnaire (AUDIT-C) 1. How often do you have a drink containing alcohol?: Never Total Score: 0 Score Reviewed/Action Taken: No SARA-7 AMB Questionnaire SARA-7 Date SARA - 7 assessed: 02/17/25 Feeling nervous, anxious, or on edge: 0 = Not at all Not being able to stop or control worryin = Not at all Worrying too much about different things: 0 = Not at all Trouble relaxin = Not at all Being so restless that it is hard to sit still: 0 = Not at all Becoming easily annoyed or irritable: 1 = Several days Feeling afraid as if something awful might happen: 0 = Not at all Total SARA-7 score (0-4 normal; 5-9 mild; 10-14 moderate; 15-21 severe): 1 Source: Developed by Drs. Jeff Ngo, Jasmina Carlos, Kevin Pratt and colleagues, with an educational roge from [employer]. SARA-7 Assessment Billing SARA-7 Assessment Tool: SARA-7 Assessment 25324 Review of Systems Const Denies poor appetite and Denies weakness Eyes Denies no additional complaints ENT Reports Normal hearing present, Denies dizziness, Denies nasal congestion, Denies tinnitus and Denies sore throat Card Denies chest pain, Denies syncope, Denies rapid heart rate and Denies dyspnea Resp Denies cough and Denies dyspnea GI Denies change in stool character, Reports constipation, Denies diarrhea, Denies nausea and Denies vomiting Denies dysuria and Denies urinary frequency Neuro Reports Normal hearing present, Denies confusion, Denies dizziness, Denies syncope and Denies weakness Psych Denies confusion Physical exam (Primary Care) Vital Signs: Last Vital Signs Temp 97.5 F 02/17/25 10:36 Pulse 60 02/17/25 10:36 Resp 16 02/17/25 10:36 BP 112/68 02/17/25 10:36 Pulse Ox 99 02/17/25 10:36 Oxygen Delivery Method Room Air 02/17/25 10:36 BMI result Body Mass Index 21.1 Tobacco/Smoking Status: Tobacco use Status Tobacco use date assessed 02/17/25 02/17/25 10:46 Patient Tobacco Use Status Never used Tobacco 02/17/25 10:39 Tobacco use type Cigarette 02/17/25 10:39 e-Cigarette/Vaping Use Never Used 02/17/25 10:39 PHQ-9: PHQ-9 Score PHQ-9: Total score 3 02/17/25 10:53 Depression Screening Interpretation: Negative Thrive Assessment: Date of Thrive Assessment Date Thrive assessed 02/17/25 02/17/25 10:46 Currently or been in a relationship where the following occur: No concerns reported Const General: No confusion Orientation/consciousness: No confusion HENMT Other: impacted cerumen bilateral Head: Yes normocephalic Ears: external ears normal Face and sinus: Yes normal facial exam Mouth: moist mucous membranes Throat: Yes tonsils normal Eyes Conjunctivae: conjunctivae normal Pupils: Equal, round and reactive pupils present and Pupil accommodation reflex normal Direct Ophthalmoscopy: normal light reflex Neck Neck: No lymphadenopathy Thyroid: Thyroid normal Chest Chest palpation & inspection: normal inspection of the chest Resp Effort & Inspection: normal respiratory effort and no audible wheezes Auscultation: clear to auscultation bilaterally, no crackles, no wheezes and lung sounds not diminished Cardio Rate: regular rate Rhythm: regular rhythm Peripheral pulses: radial pulses present and dorsalis pedis present GI Palpation (GI): no masses Auscultation: normal bowel sounds and normoactive bowel sounds Rectal Exam - Male: Yes deferred Skin General skin exam: no rashes or lesions noted Rashes: no rashes Neuro General: No confusion Cranial nerves: Yes Equal, round and reactive pupils present and Yes Normal hearing present Cognition (Neuro): normal cognition Gait exam (Neuro): Normal gait present Motor exam (neuro): 5/5 motor strength present throughout Deep tendon reflexes (DTR's): Right brachioradialis reflex intensity grade: 2+, Left brachioradialis reflex intensity grade: 2+, Right patellar reflex intensity grade: 2+ and Left patellar reflex intensity grade: 2+ Extrem General: No edema Office Procedures Cerumen Removal From which ear canal was the cerumen removed: bilateral Removal: irrigation, otoscope w/curette, cerumen loop/spoon and other Notes: patient tolerated procedure well, no complications and ear canal clear [id number] Irrigation/Lavage Coding Level of Care Code Est Pt Level 3 (24683) Est Pt Prev Care >65y(90822) Diagnoses Annual physical exam Z00.00 Parkinsons disease G20 Seizure disorder G40.909 BPH (benign prostatic hyperplasia) N40.0 Hypercholesterolemia E78.00 GERD (gastroesophageal reflux disease) K21.9 Multiple adenomatous polyps D36.9 Post herpetic neuralgia B02.29 Impacted cerumen of both ears H61.23 CPT Codes Office Procedure - CPT: 05235-Jgw Irrigation/Lavage ([id number]) Additional Codes SARA-7 Assessment Billing - SARA-7 Assessment Tool: SARA-7 Assessment 65095 ([id number]) PHQ-9 - 80827 - PHQ-9 Billing: Yes ([id number]) Assessment & Plan Assessment & Plan (1) Annual physical exam: Code(s): Z00.00 - Encounter for general adult medical examination without abnormal findings Category: Medical Plan: Patient is advised to eat healthy, keep well hydrated, keep active and have adequate sleep. (2) Parkinsons disease: Code(s): G20 - Parkinson's disease Category: Medical Plan: Continue to follow-up with Neurology on levodopa carbidopa (3) Seizure disorder: Code(s): G40.909 - Epilepsy, unspecified, not intractable, without status epilepticus Category: Medical Plan: Continue with present medication on chlorpromazine clonazepam Depakote gabapentin (4) BPH (benign prostatic hyperplasia): Code(s): N40.0 - Benign prostatic hyperplasia without lower urinary tract symptoms Category: Medical Plan: Continue with tamsulosin (5) Hypercholesterolemia: Code(s): E78.00 - Pure hypercholesterolemia, unspecified Category: Medical Plan: Avoid fried foods, chicken skin, eggs, butter margarine, pastries and meat. Be it pork or beef they have a lot of cholesterol LDL goal of less than 130 and triglyceride of less than 150 (6) GERD (gastroesophageal reflux disease): Comment: Erosive gastritis with Schatzki's ring Code(s): K21.9 - Gastro-esophageal reflux disease without esophagitis Category: Medical Plan: Avoid the foods that causes that usually spicy foods, tomato products, juices, coffee, soda and foods that your sensitive to. After eating do not lie down, allow 3-4 hours before in lie down. And keep the head of bed above 30 degrees to avoid the acid from going up. (7) Multiple adenomatous polyps: Comment: Discovered on 07/2019 colonoscopy, repeat scope 08/2021 showed some large TA so will repeat this in 3 years or in 2023 Code(s): D36.9 - Benign neoplasm, unspecified site Category: Medical Plan: Patient has a meeting with Gastroenterology in March (8) Post herpetic neuralgia: Comment: r shoulder Code(s): B02.29 - Other postherpetic nervous system involvement Category: Medical Plan: Continue with gabapentin (9) Impacted cerumen of both ears: Code(s): H61.23 - Impacted cerumen, bilateral Category: Medical Plan: bilateral irrigation done TM intact Plan History of Present Illness The patient is a 74-year-old male presenting for an annual physical examination with a significant history that includes Parkinson's disease, managed with Levodopa and Carbidopa, and seizure disorder. Maintaining a cholesterol management plan targeting LDL of less than 130 mg/dL, the patient additionally manages hypercholesterolemia, with planned blood work in the coming month. Notably, he has a history of urinary accidents with reported improvement in recent weeks, attributed to ongoing medication adjustment. The patient has a documented history of intractable hiccups and postoperative neuralgia in his right shoulder. Colon health is a concern, with a history of tubular adenoma, and his most recent colonoscopy was in September 2021, with follow-up gastroenterology evaluations planned. GERD is managed with Gabapentin currently, and there was a past referral to speech therapy for evaluation of swallowing difficulties, with a subsequent clearing within the last six months. Lifestyle factors affecting health include insufficient water intake noted during the visit, affecting urine color. He has undergone a recent hearing assessment with further appointments planned due to procedural difficulties, and there are ENT visits arranged for ear cleaning. He has reported no symptoms such as nausea, difficulty swallowing, vomiting, chest pains, or significant changes in bowel movements and denies shortness of breath or heartburn. His caregiver also confirms the absence of recent falls, fainting episodes, or significantly different clinical features since his last evaluation. Health Maintenance - Cholesterol management plan in place, target LDL < 130 mg/dL. - Annual colonoscopy last performed September 2021. - Scheduled infectious disease technician appointment in March. - Recent hearing test performed, follow-up scheduled next month. - ENT appointment booked for ear cleaning in June. Social History - Patient reports inadequate hydration, leading to darker urine. - Caregivers have noted reduced incidents of urinary incontinence recently. Review of Systems - Neurological: Denies dizziness or passing out. Reports decreased urinary accidents. - Gastrointestinal: Denies nausea, vomiting, or difficulty swallowing. Bowel movements reported as regular. - Genitourinary: Denies urinary frequency at night. Recent observed dark urine. - Respiratory: Denies shortness of breath or waking up with breathing difficulties. - Cardiovascular: Denies chest pain. - Integumentary: Reports intermittent back pain. - Ears, Eyes, Nose, Throat: Reports EENT issues, including hearing difficulties and ear wax buildup. Physical Exam General: Cooperative, healthy appearing, comfortable, no acute distress and well developed Orientation: Patient oriented x3 Limitations: No limitations Head: Normal to inspection Ears: Hearing grossly normal bilaterally, but patient has an ENT appointment to get them cleaned in June Nose: Normal external nose present Face and sinus: Normal facial exam Eyes: Appearance normal, both eyes and all related structures Neck: Normal visual inspection and Yes full ROM Respiratory: Normal respiratory effort and able to speak in complete sentences. Clear to auscultation bilaterally Cardiovascular: Regular rate and rhythm. Normal S1 and S2 GI: Normal to inspection. Soft to palpation and nontender Skin: No rashes or lesions noted Neuro: Patient oriented x3 Extremities: Normal to inspection, but patient reports back pain when sitting up Results - Labs: Last blood work was in February 2024, fasting blood work planned for next month. Plan I will maintain the current regimen for managing Parkinson's disease, seizure disorder, and hypercholesterolemia, reinforcing hydration to prevent urine concentration. Scheduled appointments aim to assess and potentially modify GERD management and colorectal health care. ENT appointments will handle ear cleaning purposes. Consent for interventions was acknowledged, avoiding invasive procedures due to patient preference. Monitoring for Parkinson's disease will continue alongside forthcoming blood work reassessment. Patient was informed and verbally consented to the use of an ambient scribe for clinic note documentation during this visit. Discussion Notes I discussed the overall management of Parkinson's disease using Levodopa and Carbidopa, emphasizing optimization for fewer urinary incidents. For hypercholesterolemia, continued medication compliance was discussed, aiming for LDL below 130 mg/dL. The importance of fasting before the forthcoming blood work was reinforced. I advised that good hydration comprises overall health management, particularly to counteract recent urinary issues. Here's the plan: meeting a infectious disease technician will address a colonoscopy follow-up and GERD management. Follow-ups post-hearing tests will inform oral evaluations, with further ENT discussions set for June. Patient comfort was prioritized, avoiding rectal examinations, and patient consent for less invasive procedures was archived. Patient Instructions - Continue Parkinson's medication regimen as prescribed. - Follow the cholesterol plan by monitoring dietary intake and medication adherence. - Ensure adequate daily hydration. - Fast for 8 hours before next month's blood work, water is permitted. - Attend scheduled infectious disease technician and ENT appointments. - Report any new or worsening symptoms promptly. - Maintain existing GERD management with Gabapentin. - Monitor any changes in urination patterns or color, and inform if changes persist.
[2025-02-17 10:36] VITALS: BP 112/68; PULSE 60; RESP 16; TEMP 36.4; O2SAT 99; BMI 21.1
== END 2025-02-17 11:49 | disposition home or self-care (01) ==
LOC: HO.HMCH 10:17
PROVIDERS: Visit Provider Internal Medicine
DX: Z00.00 Encounter for general adult medical examination without abnormal findings (principal); G20.C Parkinsonism, unspecified; G40.909 Epilepsy, unspecified, not intractable, without status epilepticus; N40.0 Benign prostatic hyperplasia without lower urinary tract symptoms; E78.00 Pure hypercholesterolemia, unspecified; K21.9 Gastro-esophageal reflux disease without esophagitis; D36.9 Benign neoplasm, unspecified site; B02.29 Other postherpetic nervous system involvement; H61.23 Impacted cerumen, bilateral

== ENCOUNTER → 2025-02-17 10:17 | Outpatient (BNVA) | payer MEDICARE, MEDICAID, SELFPAY | PROVIDERS: Visit Provider Internal Medicine | DX: Z00.01 Encounter for general adult medical examination with abnormal findings (principal); G20.C Parkinsonism, unspecified; G40.909 Epilepsy, unspecified, not intractable, without status epilepticus; N40.0 Benign prostatic hyperplasia without lower urinary tract symptoms; E78.00 Pure hypercholesterolemia, unspecified; K21.9 Gastro-esophageal reflux disease without esophagitis; D36.9 Benign neoplasm, unspecified site; B02.29 Other postherpetic nervous system involvement; H61.23 Impacted cerumen, bilateral | CPT/HCPCS: 69210; 96127; 99212; 99397 ==

== ENCOUNTER 2025-02-27 09:50 | Outpatient (AMB) | payer MEDICARE, MEDICAID, SELFPAY ==
--- NOTE | 2025-02-27 09:59 | A.OFFVIS_ITS ---
Intake Visit Reasons: 1y/PVR Intake Note: Patient is present for 1 year/ PVR Urology Med: Tamsulosin Antibiotic Allergy: none Blood Thinner: None PVR: 273ml Allergies ammonia [AMMONIA] Allergy (Intermediate, Verified 02/27/25 10:15) SHORTNESS OF BREATH sodium hypochlorite solution [Sodium Hypochlorite] Allergy (Intermediate, Verified 02/27/25 10:15) SHORTNESS OF BREATH ( BLEACH ) HPI Comments Details: Grady is a pleasant male. He is seen for the following urologic condition - lower urinary tract symptoms Is under DMR care Accompanied by caseworker protective services Remains with high PVR although Hard for him to empty Continue with tamsulosin 12 month follow-up Lower urinary tract symptoms Says he has effective emptying Good stream Minimal nocturia Control of urge and frequency Current medications tamsulosin Prior PSA 06/09 0.8 Comorbidities Parkinson's disease Therapeutic plan continue yearly evaluation [facility] Medical History Acute respiratory disease Right carpal tunnel syndrome SARA (generalized anxiety disorder) COPD (chronic obstructive pulmonary disease) Tubular adenoma of colon Rib fractures GERD (gastroesophageal reflux disease) Mental and behavioral problem Hypercholesterolemia Intractable hiccups BPH (benign prostatic hyperplasia) Seizure disorder Parkinsons disease Surgical History Hx of colonoscopy Hx of hernia repair Hx of tonsillectomy History of carpal tunnel release History of cholecystectomy Family History Father Lung cancer Mother Brain cancer COPD (chronic obstructive pulmonary disease) Social History Housing: Assisted Living Facility Alcohol intake: current Alcohol intake frequency: does not drink Patient Tobacco Use Status: Never used Tobacco Tobacco use type: Cigarette e-Cigarette/Vaping Use: Never Used Second Hand Smoke Exposure: No service: No Current occupational status: retired Cognitive needs: Yes (walker) Hearing needs: Yes (hearing aids in both ears) Vision needs: Yes (glasses) Office Procedures Post Void Residual Post Residual Void Post Void Residual (PVR): 273 [id number] Void Residual by ultrasound Results AMB Urinalysis, Automated UA Leukoctes 0 Bozena/uL Last Edit by Aneta Baires on 02/27/25 12:16 UA Nitrite Negative Last Edit by Aneta Baires on 02/27/25 12:16 UA Urobilinogen 1 mg/dL Last Edit by Aneta Baires on 02/27/25 12:16 UA Protein 0 mg/dL Last Edit by Aneta Baires on 02/27/25 12:16 UA pH 6.5 Last Edit by Aneta Baires on 02/27/25 12:16 UA Blood 0 Cole/uL Last Edit by Aneta Baires on 02/27/25 12:16 UA Specific [place] 1.015 Last Edit by Aneta Baires on 02/27/25 12:16 UA Ketone Negative Last Edit by Aneta Baires on 02/27/25 12:16 UA Bilirubin 0 mg/dL Last Edit by Aneta Baires on 02/27/25 12:16 UA Glucose 0 mg/dL Last Edit by Aneta Baires on 02/27/25 12:16 Assessment & Plan Assessment & Plan Orders: Orders AMB Urinalysis Automated Today Z13.9 - Encounter for screening, unspecified Coding CPT Codes Post Residual Void - PVR CPT Code: [id number] Void Residual by ultrasound ([id number])
== END 2025-02-27 10:54 | disposition home or self-care (01) ==
LOC: HO.HUSH 09:50
PROVIDERS: Visit Provider Urology
DX: Z13.9 Encounter for screening, unspecified (principal)

== ENCOUNTER → 2025-02-27 09:50 | Outpatient (BNVA) | payer MEDICARE, MEDICAID, SELFPAY | PROVIDERS: Visit Provider Urology | DX: R30.0 Dysuria (principal); N48.1 Balanitis; N40.0 Benign prostatic hyperplasia without lower urinary tract symptoms; Z79.899 Other long term (current) drug therapy | CPT/HCPCS: 51798; 81003; 99212 ==

== ENCOUNTER 2025-03-26 09:00 | Outpatient (REF) | payer MEDICARE, MEDICAID, SELFPAY ==
[2025-03-26 11:28] LABS: MANUAL DIFF FLAG NO
[2025-03-26 11:48] LABS: Basophils Percent Auto 0.4 % (0-2); Eosinophils Percent Auto 0.6 % (0-4); Hematocrit 47.3 % (42.0-52.0); Lymphocytes Absolute Auto 1.3 X10*3/uL (1.2-4.9); Lymphocytes Percent Auto 25.2 % (20-40); Mean Corpuscular HGB Conc 33.8 g/dl (31.0-36.0); Mean Corpuscular Hemoglobin 33.3 pg (27.0-33.0); Mean Corpuscular Volume 98.3 fL (80.0-98.0); Mean Platelet Volume 11.6 fL (9.4-12.4); Monocytes Absolute Auto 0.4 X10*3/uL (0.1-1.2); Monocytes Percent Auto 8.2 % (2-11); Neutrophils Absolute Auto 3.3 x10*3/uL (2.0-8.3); Neutrophils Percent Auto 65.6 % (45-73); Platelet Count 142 X10*3/uL (160-400); Red Blood Count 4.81 X10*6/uL (4.60-5.80); Red Cell Distribution Width 13.2 % (11.0-16.0)
[2025-03-26 12:20] LABS: Valproate 43.4 mcg/mL (50.0-100.0)
[2025-03-26 12:39] LABS: Alanine Aminotransferase 26 U/L (0-40); Albumin Level 4.4 g/dL (3.5-5.0); Alkaline Phosphatase 54 U/L (39-117); Anion Gap 11 (12-20); Aspartate Amino Transferase 21 U/L (5-37); Bilirubin Total 1.2 mg/dL (0.0-1.0); Blood Urea Nitrogen 17 mg/dL (9-16); Calcium 9.7 mg/dL (8.4-10.2); Carbon Dioxide 30 mmol/L (22-29); Chloride 103 mmol/L (96-108); Cholesterol 181 mg/dL (<200); Estimated Glomerular Filt Rate > 60; Glucose Random 87 mg/dL (60-115); HDL Cholesterol 54 mg/dL (>40); LDL Cholesterol Calculated 115 mg/dL (<100); Potassium 3.9 mmol/L (3.3-5.1); Sodium 140 mmol/L (135-145); Thyroid Stimulating Hormone 0.89 uIU/mL (0.32-4.0); Total Protein 7.1 g/dL (6.5-8.0); Triglycerides 61 mg/dL (<150)
[2025-03-26 12:59] LABS: Vitamin B12 603 pg/mL (200-900)
[2025-03-26 14:57] LABS: Appearance Urine Clear; Color Urine Dark Yellow; Glucose Urine UA Negative (Negative); Leukocyte Esterase Urine Negative (Negative); Nitrite Urine Negative (Negative); Urine Blood Negative (Negative); Urine Ketones 15 mg/dL (Negative); Urine Protein Negative (Neg-Trace)
== END 2025-03-26 09:01 | disposition home or self-care (01) ==
LOC: HO.WFDLDS 09:00
PROVIDERS: Visit Provider Internal Medicine
DX: G40.909 Epilepsy, unspecified, not intractable, without status epilepticus (principal); E78.00 Pure hypercholesterolemia, unspecified; R30.0 Dysuria; Z12.5 Encounter for screening for malignant neoplasm of prostate
CPT/HCPCS: 36415; 80053; 80061; 80164; 81003; 82607; 82746; 84153; 84439; 84443; 85025

== ENCOUNTER 2025-04-01 11:10 | Outpatient (AMB) | payer MEDICARE, MEDICAID, SELFPAY ==
--- NOTE | 2025-04-01 11:32 | A.OFFVIS_ITS ---
Vital Signs 04/01/25 11:34 Height 5 ft 8 in Weight 134 lb 7.712 oz BMI 20.4 BP 109/56 L Blood Pressure Location Lt brachial Position Sitting Pulse 62 Intake Visit Reasons: colo screening Intake Note: presents in the office as a colonoscopy screening. CC: a month and a half ago he had an episode of issues with swallowing and has had swallowing tests done but was told it was not a concern. Patient denies issues. [facility] [employer] Required: No Allergies ammonia [AMMONIA] Allergy (Intermediate, Verified 04/01/25 11:39) SHORTNESS OF BREATH sodium hypochlorite solution [Sodium Hypochlorite] Allergy (Intermediate, Verified 04/01/25 11:39) SHORTNESS OF BREATH ( BLEACH ) HPI HPI colo screening: Details: Assessment & Plan (1) Diarrhea: ?Code(s): R19.7 - Diarrhea, unspecified ?Plan: ? He is here today with a staff member and they both say he continues to do extremely well with control of his diarrhea utilizing Carafate.? The omeprazole also seems to be controlling his heartburn and he has been swallowing well compared to his baseline.? Since all seems to be stable I will see him again in 6 months.? He will be due for another colonoscopy in 2023. (2) GERD (gastroesophageal reflux disease): ?Comment: Erosive gastritis with Schatzki's ring ?Code(s): K21.9 - Gastro-esophageal reflux disease without esophagitis (3) Esophageal dysmotility: ?Comment: November 2017 abnormal esophageal manometry ?Code(s): K22.4 - Dyskinesia of esophagus (4) Multiple adenomatous polyps: ?Comment: Discovered on 07/2019 colonoscopy, repeat scope 08/2021 showed some large TA so will repeat this in 3 years or in 2023 ?Code(s): D36.9 - Benign neoplasm, unspecified site PMX COPD Seizure disorder Parkinson's disease High cholesterol Hard of hearing Post herpetic neuralgia Fecal incontinence Urinary incontinence Esophageal dysmotility BPH SURGICAL HISTORY Hernia repair Tonsillectomy Carpal tunnel release Cholecystectomy * ALLERGIES NKDA * LABS: Laboratory Tests 03/26/25 09:03 WBC 5.0 Hgb 16.0 Hct 47.3 MCV 98.3 H MCH 33.3 H Plt Count 142 L D Estimated GFR > 60 Total Bilirubin 1.2 H AST 21 ALT 26 Alkaline Phosphatase 54 TSH 0.89 TODAY'S VISIT PATIENT HAS BEEN LOST TO FOLLOW-UP SINCE 10/2022 and it appears he is here today for a 3 year repeat of the colonoscopy performed in 2020 showing a couple of rather large polyps. His staff denies any cardiac or respiratory problems. There are no known prior problems with anesthesia or sedation. There are no infectious disease problems. His seizures have been well controlled. He continues on his Carafate in his omeprazole with good control of his GI conditions. Return office visit after his procedures. [facility] Medical History (Updated 04/01/25 @ 11:54 by MUSA Vanessa) Fall (on)(from) incline, initial encounter Annual physical exam Tinea cruris UTI (urinary tract infection) URI (upper respiratory infection) Acute respiratory disease Right carpal tunnel syndrome SARA (generalized anxiety disorder) COPD (chronic obstructive pulmonary disease) Tubular adenoma of colon Rib fractures GERD (gastroesophageal reflux disease) Mental and behavioral problem Hypercholesterolemia Intractable hiccups BPH (benign prostatic hyperplasia) Seizure disorder Parkinsons disease Surgical History Hx of colonoscopy Hx of hernia repair Hx of tonsillectomy History of carpal tunnel release History of cholecystectomy Family History Father Lung cancer Mother Brain cancer COPD (chronic obstructive pulmonary disease) Social History Housing: Assisted Living Facility Alcohol intake: current Alcohol intake frequency: does not drink Patient Tobacco Use Status: Never used Tobacco Tobacco use type: Cigarette e-Cigarette/Vaping Use: Never Used Second Hand Smoke Exposure: No service: No Current occupational status: retired Cognitive needs: Yes (walker) Hearing needs: Yes (hearing aids in both ears) Vision needs: Yes (glasses) Review of Systems Const Denies fatigue, Denies fever(s), Denies night sweats, Denies poor appetite and Denies weight loss ENT Reports Normal hearing present, Denies dysphagia, Denies odynophagia, Denies throat swelling and Denies tongue swelling Card Reports no additional complaints Resp Reports no additional complaints GI Details: Denies abdominal pain, Denies melena, Denies bloating, Denies hematochezia, Denies constipation, Denies GI cramping, Denies dysphagia, Denies excessive flatus, Denies early satiety, Reports heartburn, Reports diarrhea, Denies nausea, Denies odynophagia, Denies vomiting and Denies hematemesis Musc Reports abnormal gait Skin/Breast Denies pruritus, Denies lesions, Denies rash and Denies jaundice Neuro Reports Normal hearing present, Denies Abnormal speech present and Reports abnormal gait Endo Denies fatigue Aller/Immun Denies throat swelling and Denies tongue swelling Physical Exam Vital Signs: Last Vital Signs Pulse 62 04/01/25 11:34 BP 109/56 L 04/01/25 11:34 BMI result Body Mass Index 20.4 Const General: cooperative, no acute distress, well developed and well groomed Nutritional Appearance: well nourished and thin Orientation/consciousness: oriented to person, oriented to place and oriented to time Limitations: behavioral limitations, No language barrier, physical limitations, ambulation with walker and other limitations HEENT Head: Yes normocephalic and Yes atraumatic Eyes General: appearance normal, both eyes and all related structures Pupils: Equal, round and reactive pupils present Neck Neck: Yes normal visual inspection and Yes no lymphadenopathy Thyroid: Thyroid normal Resp Effort & Inspection: normal respiratory effort and able to speak in complete sentences Auscultation: clear to auscultation bilaterally Cardio Rate: regular rate Rhythm: regular rhythm Heart sounds: Normal, physiologic split S2 sound present Peripheral pulses: radial pulses present and posterior tibial pulses present GI Inspection: No distended and No Abdominal panniculus present Palpation (GI): Soft to palpation, nontender, no guarding, not rigid and No hepatosplenomegaly present Percussion: Yes normal to percussion Auscultation: normal bowel sounds Rectal Exam - Male: Yes deferred Skin General skin exam: no rashes or lesions noted, turgor normal, skin not dry, no jaundice, No spider nevi and no striae Rashes: no rashes Nails: normal Neuro General: oriented to person, oriented to place and oriented to time Cranial nerves: Yes Equal, round and reactive pupils present and Yes Normal hearing present Speech: No Abnormal speech present Extrem General: Yes normal to inspection, No clubbing, No cyanosis and No edema Psych Appearance: grossly normal and well kempt Mental Status: other Speech and movement: Slowed speech present (Psych) Affect: Blunted affect present Attitude: cooperative Thought process: not confabulating and Other thought process findings present Thought content: other Insight: Poor insight present (Psych) Judgement: Poor judgement present (Psych) Results Reviewed Results Reviewed: Laboratory Tests 03/26/25 09:03 WBC 5.0 Hgb 16.0 Hct 47.3 MCV 98.3 H MCH 33.3 H Plt Count 142 L D Estimated GFR > 60 Total Bilirubin 1.2 H AST 21 ALT 26 Alkaline Phosphatase 54 TSH 0.89 Assessment & Plan Assessment & Plan (1) Multiple adenomatous polyps: Comment: Discovered on 07/2019 colonoscopy, repeat scope 08/2021 showed some large TA so will repeat this in 3 years or in 2023 Code(s): D36.9 - Benign neoplasm, unspecified site Category: Medical (2) Pre-op examination: Code(s): Z01.818 - Encounter for other preprocedural examination Category: Medical (3) Parkinsons disease: Code(s): G20 - Parkinson's disease Category: Medical (4) Seizure disorder: Code(s): G40.909 - Epilepsy, unspecified, not intractable, without status epilepticus Category: Medical (5) Mental and behavioral problem: Code(s): F48.9 - Nonpsychotic mental disorder, unspecified; F69 - Unspecified disorder of adult personality and behavior Category: Medical (6) GERD (gastroesophageal reflux disease): Comment: Erosive gastritis with Schatzki's ring Code(s): K21.9 - Gastro-esophageal reflux disease without esophagitis Category: Medical (7) Tubular adenoma of colon: Comment: August 2010, July 20192016- Dr. Patrick; December 2019 Code(s): D12.6 - Benign neoplasm of colon, unspecified Category: Medical (8) Diarrhea: Code(s): R19.7 - Diarrhea, unspecified Category: Medical (9) Hearing deficit: Code(s): H91.90 - Unspecified hearing loss, unspecified ear Category: Medical Plan PATIENT HAS BEEN LOST TO FOLLOW-UP SINCE 10/2022 and it appears he is here today for a 3 year repeat of the colonoscopy performed in 2020 showing a couple of rather large polyps. His staff denies any cardiac or respiratory problems. There are no known prior problems with anesthesia or sedation. There are no infectious disease problems. His seizures have been well controlled. He continues on his Carafate in his omeprazole with good control of his GI conditions. Return office visit after his procedures. Orders: Orders Colonoscopy - GI Use Only Today D12.6 - Benign neoplasm of colon, unspecified, D36.9 - Benign neoplasm, unspecified site, F48.9 - Nonpsychotic mental disorder, unspecified, F69 - Unspecified disorder of adult personality and behavior, G20 - Parkinson's disease, G40.909 - Epilepsy, unspecified, not intractable, without status epilepticus, H91.90 - Unspecified hearing loss, unspecified ear, K21.9 - Gastro-esophageal reflux disease without esophagitis, R19.7 - Diarrhea, unspecified, Z01.818 - Encounter for other preprocedural examination Medications: New peg 3350-electrolytes 236-22.74-6.74 -5.86 gram (Golytely) until fecal effluent is clear; do not exceed a total volume of 2,000 mL 240 mL PO Q10M 4,000 mL 0RF 1 day Z12.11 - Encounter for screening for malignant neoplasm of colon bisacodyl (Dulcolax (bisacodyl)) 10 mg (2 x 5 mg) PO BEDTIME 4 tabs 0RF 2 days polyethylene glycol 3350 (Miralax) 17 grams PO DAILY 238 grams 6RF constipation Refilled sucralfate 1 g PO ONCE 30 tabs 12RF omeprazole 40 mg PO BID 180 caps 1RF K21.9 - Gastro-esophageal reflux disease without esophagitis Coding Level of Care Code Est Pt Level 4 (55686) Diagnoses Multiple adenomatous polyps D36.9 Pre-op examination Z01.818 Parkinsons disease G20 Seizure disorder G40.909 Mental and behavioral problem F48.9; F69 GERD (gastroesophageal reflux disease) K21.9 Tubular adenoma of colon D12.6 Diarrhea R19.7 Hearing deficit H91.90 Time Spent (min) 36
[2025-04-01 11:34] VITALS: BP 109/56; PULSE 62; BMI 20.4
== END 2025-04-01 11:59 | disposition home or self-care (01) ==
LOC: HO.HGI 11:11
PROVIDERS: PCP Internal Medicine; Visit Provider Nurse Practitioner
DX: Z86.0101 Personal history of adenomatous and serrated colon polyps (principal); Z12.11 Encounter for screening for malignant neoplasm of colon; G20.A1 Parkinson's disease without dyskinesia, without mention of fluctuations; G40.909 Epilepsy, unspecified, not intractable, without status epilepticus; R19.7 Diarrhea, unspecified; K21.9 Gastro-esophageal reflux disease without esophagitis
CPT/HCPCS: 99214

== ENCOUNTER → 2025-04-01 11:10 | Outpatient (BNVA) | payer MEDICARE, MEDICAID, SELFPAY | PROVIDERS: PCP Internal Medicine; Visit Provider Nurse Practitioner | DX: Z01.818 Encounter for other preprocedural examination (principal); D36.9 Benign neoplasm, unspecified site; G20.C Parkinsonism, unspecified; G40.909 Epilepsy, unspecified, not intractable, without status epilepticus; F48.9 Nonpsychotic mental disorder, unspecified; F69 Unspecified disorder of adult personality and behavior; K21.9 Gastro-esophageal reflux disease without esophagitis; D12.6 Benign neoplasm of colon, unspecified; R19.7 Diarrhea, unspecified; H91.90 Unspecified hearing loss, unspecified ear | CPT/HCPCS: 99212 ==

== ENCOUNTER 2025-04-17 09:08 | Outpatient (REF) | payer MEDICARE, MEDICAID, SELFPAY ==
--- OUTSIDE RECORDS SUMMARY | 2025-04-17 09:28 | XMS_ITS | Patient Health Record ---
Author Organization [facility] Address [address] [place] [address] Care Team Providers Care Specimen Preparation Assistant Name Role Phone Jeff West [phone] Reason For Referral No Information Plan Of Treatment No Information
[2025-04-17 11:26] LABS: Appearance Urine Clear; Color Urine Yellow; Glucose Urine UA Negative (Negative); Leukocyte Esterase Urine Negative (Negative); Nitrite Urine Negative (Negative); PH 7.5 (5.0-9.0); Urine Blood Negative (Negative); Urine Ketones Trace mg/dL (Negative); Urine Protein Negative (Neg-Trace)
[2025-04-17 12:04] LABS: Valproate 78.8 mcg/mL (50.0-100.0)
== END 2025-04-17 09:09 | disposition home or self-care (01) ==
LOC: HO.WFDLDS 09:08
PROVIDERS: Visit Provider Internal Medicine
DX: R30.0 Dysuria (principal); G40.909 Epilepsy, unspecified, not intractable, without status epilepticus
CPT/HCPCS: 36415; 80164; 81003